=== PATIENT | female | born 1955 | race Caucasian/White ===

== ENCOUNTER → 2019-11-07 15:54 | Outpatient (CLI) | payer MEDICARE, SELFPAY ==
--- NOTE | 2019-11-04 15:14 | GANG_PTH ---
PATIENT: ROMARIO DIXON LOC: [facility] U#:[id number] AGE/SX: 70/F ROOM: RE11/07/[address]: Dr. John Evans MD : [id number] BED: DIS: SPEC #: [id number] RECD: 11/07/19 15:25 STATUS: TITA PRABHAKAR #: [id number] PHUONG: 11/04/19 15:[address]: John Evans DEPT: SURGICAL PATHOLOGY RECD BY: Abbe Nixon ENTERED: 11/08/19 11:02 SP TYPE: GANGLION OTHR DR: No Primary Care Phys [facility] Tissues: GANGLION CYST Procedures: Surgery Specimen Level III HEADER OPERATION: Excision cyst right wrist, corticosteroid injection right wrist PRE-OP DIAGNOSIS: Right wrist ganglion cyst; right wrist severe osteoarthritis TISSUE SUBMITTED: Right wrist dorsal ganglion cyst MICROSCOPIC DIAGNOSIS Right wrist dorsal ganglion cyst, excision: Consistent with ganglion cyst. SJ:alejandra 1/2/20 MICROSCOPIC DESCRIPTION Slides are reviewed. GROSS DESCRIPTION Received is one container labeled with the patient's name and not further designated. The specimen consists of an irregular fragment of light chicas soft tissue measuring 1.2 x 0.7 x 0.3 cm. The specimen is totally submitted in one cassette. / AM:alejandra 11/08/19 TC:5 CPT: 40436
== END ==
PROVIDERS: Referring Provider Specialist; Visit Provider Specialist
DX: M67.431 Ganglion, right wrist (principal); M19.031 Primary osteoarthritis, right wrist
CPT/HCPCS: 88304

== ENCOUNTER 2020-04-28 04:42 | Inpatient (IN) | payer MEDICARE, SELFPAY ==
[2020-04-28] VITALS (58 sets, daily range): BP systolic 56–116; BP diastolic 32–100; PULSE 80–116; RESP 15–25; TEMP 36.7–37.4; O2SAT 85–100; BMI 22.2; BMI 22.3; BMI 23.4
--- NOTE | 2020-04-28 04:48 | EKG12_ITS ---
Test Reason : FALL Blood Pressure : / mmHG Vent. Rate : 106 BPM Atrial Rate : 106 BPM P-R Int : 128 ms QRS Dur : 076 ms QT Int : 338 ms P-R-T Axes : 066 076 063 degrees QTc Int : 448 ms Sinus tachycardia Otherwise normal ECG Confirmed by MODE HERNADEZ, BLUE ([id number]), staff editor TIKI YUEN ([id number]) on 05/01/2020 9:21:44 AM Referred By: RAJAN Confirmed By:BLUE COELLO MD
--- NOTE | 2020-04-28 04:48 | CT_ITS ---
STUDY: CT BRAIN WITHOUT CONTRAST REASON FOR EXAM: Female, 65 years old. FREQUENT FALLS, HIT HEAD, SMALL LAC POSTERIOR HEAD RADIATION DOSAGE (If Supplied By Facility): CTDIvol = ( 44.99 ) mGy, DLP = ( 762.36 ) mGycm TECHNIQUE: Transaxial CT imaging of the brain was performed without administration of intravenous contrast material. Individualized dose optimization techniques were used for this CT. COMPARISON: No relevant priors. FINDINGS: Minimal soft tissue prominence along the right occipital parietal soft tissue. Intact underlying cortex. There is no radiopaque foreign body. Normal calvarium. Normal size ventricles and extra-axial spaces for the patient''s age. Normal white matter tracts of the cerebral hemispheres. Normal basal ganglia and thalami. Normal brainstem. Normal cerebellum. There is no intracranial hemorrhage. There are no findings of an acute ischemic infarction. Normal visualized paranasal sinuses. The bilateral mastoid air cells and ossicles are unopacified. Intracranial arteriosclerosis of the carotid and vertebral arteries. CT/Brain/Head without Contrast IMPRESSION: There is no acute intracranial pathology. Mild soft tissue injury.. Electronically Signed: Steffany Uribe MD at 5:34 EDT , Service support ,
--- NOTE | 2020-04-28 04:50 | ED.DCSUM_ITS ---
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 She apparently had fallen last 3 nights at home alone. Last night she was staying with her daughter and fell twice. Patient denies feeling lightheaded or dizzy. She states she just feels like her legs give out on her. She was diagnosed with restless leg syndrome. EMS did note large areas of ecchymoses over the lower extremities. They initially had blood pressure in the 60s over 30s. - Past Medical History (1) Hypertension Status: Chronic (2) Carotid stenosis Status: Chronic Past Medical History - Allergies and Home Meds Allergies/Adverse Reactions: Allergies No Known Allergies Allergy (Verified 04/28/20 04:52) Primary Care Physician: Care Physician,No Primary [NON-STAFF] - Prior records reviewed: Yes Lives: Alone Review of Systems General: Denies: Chills, Fever Eyes: Denies: Visual changes - bilaterally ENT: Denies: Bilateral ear pain Cardiovascular: Denies: Chest pain Respiratory: Denies: Dyspnea, Cough Gastrointestinal: Denies: Abdominal pain, Nausea, Vomiting, Diarrhea Musculoskeletal: Reports: Extremity Pain Skin: Reports: Wounds Neurological: Reports: Weakness - Generalized weakness Hematologic: Reports: Easy bruising - Secondary to Xarelto Allergy: Denies: Uticaria Physical Exam Vital Signs/Narrative: Vital Signs Temp Pulse Resp BP Pulse Ox 04/28/20 04:43 99 F 97 16 114/100 H 98 Inital Vital Signs reviewed: Yes General: Well nourished, Well developed Head: Normocephalic, - - 5 cm linear laceration over the right posterior parietal scalp. Bleeding is well controlled. Eyes: Perrl, EOMI ENT: Moist mucous membranes Neck: Supple Cardiovascular: Regular rate, Regular rhythm Respiratory: No distress, CTA bilaterally Abdomen: Soft, Nontender, Normal bowel sounds Extremities: - - Old appearing ecchymosis on the medial portion of both thighs and over the left lower leg. Right foot is in a walking boot. Neurological: Alert, Oriented x3, Normal Strength, Normal Sensation Psychological: Normal affect Diagnostic/Tx/Re-eval Impressions Brain CT 04/28/20 04:48 IMPRESSION: There is no acute intracranial pathology. Mild soft tissue injury.. Electronically Signed: Steffany Uribe MD at 5:34 EDT , Service support , 04/28/20 04:48 Brain/Head without Contrast [CT] Stat Laboratory Results 04/28/20 04/28/20 04/28/20 04:45 04:45 04:45 WBC 12.8 H RBC 3.16 L Hgb 9.9 L Hct 31.4 L MCV 99.4 H MCH 31.3 MCHC 31.5 L RDW Std Deviation 47.6 H RDW Coeff of Cher 13.5 Plt Count 368 MPV 8.8 Immature Gran % (Auto) 0.400 Neut % (Auto) 68.3 Lymph % (Auto) 20.1 [place] % (Auto) 9.2 Eos % (Auto) 1.7 Baso % (Auto) 0.3 Absolute Neuts (auto) 8.7 H Absolute Lymphs (auto) 2.56 Nucleated RBC % 0 PT 14.1 INR 1.1 APTT 29.6 Sodium 138 Potassium 4.2 Chloride 102 Carbon Dioxide 28.0 Anion Gap 8 BUN 9 Creatinine 0.49 L Estim Creat Clear Calc 39.21 Est GFR (MDRD) Af Amer 162 Est GFR (MDRD) Non-Af 134 BUN/Creatinine Ratio 18.3 Glucose 121 H Calcium 8.9 Urine Color Urine Clarity Urine pH Ur Specific [place] Urine Protein Urine Glucose (UA) Urine Ketones Urine Occult Blood Urine Nitrite Urine Bilirubin Urine Urobilinogen Ur Leukocyte Esterase Urine RBC Urine WBC Ur Squamous Epith Cells Urine Bacteria Urine Mucus 04/28/20 05:55 WBC RBC Hgb Hct MCV MCH MCHC RDW Std Deviation RDW Coeff of Cher Plt Count MPV Immature Gran % (Auto) Neut % (Auto) Lymph % (Auto) [place] % (Auto) Eos % (Auto) Baso % (Auto) Absolute Neuts (auto) Absolute Lymphs (auto) Nucleated RBC % PT INR APTT Sodium Potassium Chloride Carbon Dioxide Anion Gap BUN Creatinine Estim Creat Clear Calc Est GFR (MDRD) Af Amer Est GFR (MDRD) Non-Af BUN/Creatinine Ratio Glucose Calcium Urine Color Yellow Urine Clarity Clear Urine pH 7.0 Ur Specific [place] 1.010 Urine Protein Negative Urine Glucose (UA) Normal Urine Ketones Negative Urine Occult Blood 25 H Urine Nitrite Negative Urine Bilirubin Negative Urine Urobilinogen Normal Ur Leukocyte Esterase Negative Urine RBC 0-5 SEEN Urine WBC 0 SEEN Ur Squamous Epith Cells 0 SEEN Urine Bacteria 0 SEEN Urine Mucus 0 SEEN - EKG Initial EKG Interpretation: Sinus Tachycardia - Sinus tach at 106 with no acute ischemia. - Medical Decision Making Patient scalp laceration was repaired. Please see procedure note. Patient has considerable pain in her legs consistent with her restless leg syndrome. She is crawling about the bed and daughter states this is how she typically falls at home. She gets so much pain in her legs that she cannot lay still and gets up, then falling to the floor. Daughter states that she tried to stay awake and watch her all night tonight. She fell asleep twice and that is when her mother got up and fell. Patient was initially given 25 mcg of fentanyl and 0.5 mg of Ativan. Nursing staff stated this helped for a short time., But then patient became very agitated again. She was given an additional 25 mcg of fentanyl. At this time patient is sleeping. She has intermittent restlessness. At this time patient is not safe to go home with her frequent falls in spite of having a walker and staying with family members. I will speak with hospitalist regarding admission for initiation of medication regimen to try to help her symptoms along with physical therapy evaluation. Procedures - Lacerations No standard instances Length: 1.97 in Depth: Sub Q Shape: Linear Laceration repair: Lidocaine with epi, Local Number of Sutures/[place]: 7 Comment: Wound was anesthetized with 4 cc of lidocaine with epinephrine. Wound was cleansed and irrigated. Skin was closed with 7 reji. ED Disposition - Plan for ED Patient: Disposition: Acute Care Hospital [facility] Diagnosis: Multiple falls, Scalp laceration, Restless leg syndrome Referrals: Care Physician,No Primary [NON-STAFF] -
[2020-04-28 04:59] LABS: Absolute Lymphocyte Count 2.56 X10^3/uL (0.83-4.51); Absolute Neutrophil Count 8.7 X10^3/uL (2.0-7.7); Basophil# 0.04 X10^3/uL; Basophil% 0.3 % (0-1); Eosinophil# 0.22 X10^3/uL; Eosinophils% 1.7 % (0-5); Hematocrit 31.4 % (37-47); Hemoglobin 9.9 g/dL (12.0-15.0); Lymphocyte # 2.56 X10^3/ul (4.0); Lymphocyte % 20.1 % (19-41); Mean Corp Hgb Conc 31.5 g/dL (32-36); Mean Corpuscular Hgb 31.3 pg (27.0-32.0); Mean Corpuscular Volume 99.4 fL (81-99); Mean Platelet Vol. 8.8 fl (6.2-12.0); Monocyte# 1.17 X10^3/uL; Monocyte% 9.2 % (0-10); NRBC Flagged by Analyzer 0 % (0-5); Neutrophil # 8.72 X10^3/uL (2.7-7.7); Neutrophil % 68.3 % (47-70); Platelet Count 368 K/mm3 (150-450); RBC Distribution Width CV 13.5 % (11.6-14.6); RBC Distribution Width SD 47.6 fl (35.1-43.9); Red Blood Count 3.16 M/mm3 (4.2-5.4); White Blood Count 12.8 K/mm3 (4.4-11.0)
[2020-04-28 05:07] LABS: International Normalized Ratio 1.1; Partial Thromboplast Time 29.6 Seconds (24.1-36.2); Prothrombin Time (Protime)PT. 14.1 SECONDS (11.7-14.9)
[2020-04-28 05:17] LABS: Anion Gap 8 (5-15); BUN 9 mg/dL (7-18); BUN/Creat Ratio 18.3 RATIO (10-20); Calcium,Total 8.9 mg/dL (8.5-10.1); Chloride 102 mmol/L (98-107); Creatinine, Serum 0.49 mg/dL (0.55-1.02); EST Glomerular Filtration Rate 134 mL/min (>60); Est Glom Filt Rate - Afr Amer 162 mL/min (>60); Estimated Creatinine Clearance 39.21 ml/min; Glucose 121 mg/dL (74-106); Potassium 4.2 mmol/L (3.5-5.1); Sodium Level 138 mmol/L (136-145)
[2020-04-28] MEDS: LORazepam 2 MG/ML Syringe 0.5 MG IV (05:39)
[2020-04-28] MEDS: fentaNYL 100 MCG/2 ML Ampul 25 MCG IV ×3 (05:40→07:09)
[2020-04-28 06:02] LABS: Bacteria 0 SEEN /hpf (None Seen); Mucous, Urine 0 SEEN /hpf (<or=2+); Squamous Epithelial Cells - UA 0 SEEN /hpf (5-10); White Blood Cells 0 SEEN /hpf (0-5)
[2020-04-28 06:04] LABS: Color, Urine Yellow (Yellow); Glucose, Dipstick Normal (Normal); Ketone-Dipstick Negative (Negative); Leukocyte Esterase-Dipstick Negative /ul (Negative); Nitrite-Dipstick Negative (Negative); Occult Blood-Urine 25 /ul (Negative); Protein-Dipstick Negative (Negative); Urine Bilirubin Dipstick Negative (Negative); Urine Clarity Clear (Clear); Urine Urobilinogen Normal (Normal)
[2020-04-28] MEDS: 0.9% Normal Saline 1,000 ML 150 ML IV (06:06)
[2020-04-28 06:25] LABS: Red Blood Cells-Urine 0-5 SEEN /hpf (0-5)
--- NOTE | 2020-04-28 07:13 | NURSING ---
MED SURG OBS TERELETSKY RLS, MULTIPLE FALLS
--- NOTE | 2020-04-28 07:23 | NURSING ---
DR KING IN ROOM
[2020-04-28] MEDS: 0.9% Normal Saline 1,000 ML 999 ML IV ×3 (08:23→11:06)
[2020-04-28] MEDS: Naloxone 0.4 MG/ML Syringe IV ×2 (10:10→14:09)
[2020-04-28] MEDS: 0.9% Saline Lock 10 ML Syringe IV ×3 (10:10→20:21)
--- NOTE | 2020-04-28 10:17 | NURSING ---
Addendum entered by Giselle Nino 04/28/20 10:34: previous note continued....with seemingly slow improvement. Pt now thrashing in bed- states she has restless legs. Asked pt how long it has been this bad- she states for about 6 mos. but admits that she had at least 2 falls last night- the first on her buttocks and the second on her head. 8 reji intact to back of head- serosanguineous drainage continued to be noted. Pt voices need to urinate but reports that she is unable. Dr. Laguerre to be notified of all findings. Original Note: Pt lethargic at time of arrival to [place]. 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 Pt difficult to keep awake and needing occasional sternal rub to open eyes. When eyes are open and pt is talking she is alert and oriented but immediately falls into a deep sleep. bp 70's /40's and spo2 85% on 2l Oxygen. Oxygen increased to 4L with increase above 90%. Dr Kiser notified of findings and ordered narcan and 2 boluses of NS. dino Melo RN in with this patient during administration. Vitals checked.
[2020-04-28] MEDS: Heparin Injection (Vial) 5,000 UNIT/ML VIAL 5000 UNIT SC (12:14)
[2020-04-28] MEDS: 0.9% Normal Saline 1,000 ML 100 ML IV (12:15)
[2020-04-28] MEDS: Midodrine HCl 5 MG Tablet 10 MG PO (12:38)
--- NOTE | 2020-04-28 13:15 | NURSING ---
Estephania Uriber- daughter called in and requested an update. This RN notified her that this RN has been staying with pt since her arrival to unit due to low bp. Notified that doctors are attempting to correct bp but using medications but that patient may need to be transferred for closer monitoring and medications that will help increase her bp. Understanding verbalized by Estephania.
--- NOTE | 2020-04-28 13:49 | NURSING ---
DR. Laguerre to unit to assess patient and determine course of action for continued low bp.
--- NOTE | 2020-04-28 14:05 | NURSING ---
administrative supervisor notified again on update on pt, Michelle VALENTIN just in room, have personally discussed with plan of care, no orders to transfer patient off unit at this time.
[2020-04-28] MEDS: Flumazenil 0.5 MG/5 ML Vial 0.2 MG IV (14:10)
--- NOTE | 2020-04-28 14:18 | NURSING ---
Michelle Jenkins HOUSE DIRECTOR in with this RN when bp taken and was 56/34, pt remains in supine position. Pt asymptomatic and alert and oriented when awakened. Notified Michelle of care provided today and meds given in ER, narcan x1 and then new orders for narcan and romazicon. Both meds given and will continue to assess pt.
[2020-04-28 14:19] LABS: Absolute Lymphocyte Count 2.02 X10^3/uL (0.83-4.51); Absolute Neutrophil Count 5.6 X10^3/uL (2.0-7.7); Basophil# 0.03 X10^3/uL; Basophil% 0.4 % (0-1); Eosinophil# 0.13 X10^3/uL; Eosinophils% 1.5 % (0-5); Hematocrit 24.7 % (37-47); Hemoglobin 7.7 g/dL (12.0-15.0); Lymphocyte # 2.02 X10^3/ul (4.0); Lymphocyte % 23.7 % (19-41); Mean Corp Hgb Conc 31.2 g/dL (32-36); Mean Corpuscular Volume 102.5 fL (81-99); Mean Platelet Vol. 8.8 fl (6.2-12.0); Monocyte# 0.78 X10^3/uL; Monocyte% 9.1 % (0-10); NRBC Flagged by Analyzer 0 % (0-5); Neutrophil # 5.55 X10^3/uL (2.7-7.7); Neutrophil % 64.9 % (47-70); Platelet Count 296 K/mm3 (150-450); RBC Distribution Width CV 13.5 % (11.6-14.6); Red Blood Count 2.41 M/mm3 (4.2-5.4); White Blood Count 8.5 K/mm3 (4.4-11.0)
--- NOTE | 2020-04-28 14:26 | NURSING ---
Pt has been resting well this afternoon. Pt awakens at times crying. Once it was because today is her granddaughter's graduation republican and she has to miss it, more recently she was crying because she was thinking of her late and wishes he was here. She states that he about 2 yrs ago.
--- NOTE | 2020-04-28 15:07 | NURSING ---
This RN attempted to call Estephania Arnold to notify her that patient is on her way to ICU at this time. Instead message left requesting return call to this RN for an update.
--- NOTE | 2020-04-28 15:08 | NURSING ---
Report given to PRISCILLA Nolasco ICU - pt on way to ICU6 at this time per dr. silva
--- NOTE | 2020-04-28 15:17 | NURSING ---
Pt to ICU [address] Laguerre present upon arrival.
--- NOTE | 2020-04-28 15:34 | PCM.HP.STD ---
Problem List (1) Hypertension Status: Chronic (2) Carotid stenosis Status: Chronic (3) Multiple falls Status: Acute (4) Scalp laceration Status: Acute (5) Restless leg syndrome Status: Acute History of Present Illness Date of Admission: 04/28/20 Chief Complaint: Multiple falls, restless legs. The patient is a 65 year old F who presents the emergency room due to multiple falls over the past 3 days and severe restless legs. Patient states she has had restless leg syndrome for a long time however it has worsened recently. She has been getting up in the night due to her restless legs and has had multiple falls. Patient had a fall 1 week ago which resulted in right tibial fracture. Fall prior to admission resulted in posterior scalp laceration which was repaired in the ED. Patient is very drowsy during assessment. History obtained from the daughter. Patient denies dizziness, lightheadedness. She reports when she falls her legs feel weak and give out on her. She denies syncope or other associated symptoms. She has a past medical history of hypertension, hyperlipidemia, carotid artery disease, osteoporosis. Past Medical History Past Medical History (Chronic Problems): Chronic Problems Hypertension (Chronic) Carotid stenosis (Chronic) Allergies No Known Allergies Allergy (Verified 04/28/20 04:52) Home Medications: Ambulatory Orders Medication Instructions Recorded Aspirin [Aspirin, Baby] 81 mg PO DAILY@0800 04/28/20 Denosumab [Prolia] 60 mg SQ X1 04/28/20 Lisinopril [Zestril] 40 mg PO DAILY 04/28/20 Rivaroxaban [Xarelto] 2.5 mg PO BID 04/28/20 Rosuvastatin Calcium [Crestor] 10 mg PO DAILY 04/28/20 Surgical History: - - Carpal tunnel surgery, right lumpectomy, surgery. Psychiatric History: No pertinent psych hx BUFFER CHROME History: No pertinent BUFFER CHROME history Lives: Alone Smoking Status: Current every day smoker Alcohol: Occasional Drugs: None - *Family History Maternal History Items: Diabetes Paternal History Items: - - Does not know paternal medical history. Denies known paternal cardiac history. Review of Systems Constitutional: Denies: Chills, Fever, Weight Change HEENT: Denies: Head Aches, Sinus Congestion, Sinus Drainage Cardiovascular: Denies: Chest Pain, Palpitations Respiratory: Denies: Cough, Shortness of breath at rest, Sputum production Gastrointestinal: Denies: Abdominal Pain, Nausea, Vomiting Genitourinary: Denies: Dysuria Musculoskeletal: Reports: - - Bilateral leg pain, - - Restless legs. Denies: Joint Pain, Joint Tenderness Skin: Reports: - - Generalized ecchymosis from falls. Denies: Rash, Wounds Neurological: Denies: Focal weakness, Numbness, Tingling Psychiatric: Denies: Anxiety, Depression, Homicidal Ideations, Suicidal Ideations Hematologic/ Lymphatic: Denies: Easy Bruising, Easy Bleeding VTE Information - Inpt Only VTE Present on Admission: No VTE Mechan Device Prophylaxis: SCD's VTE Pharm Prophylaxis ordered?: No Reason prophylaxis not ordered:: Medical Contraindication Patient Problems: Active and Suspected Problems Multiple falls (Acute) Scalp laceration (Acute) Restless leg syndrome (Acute) - Physical Exam Vitals/I&O's: Vital Signs Temp Pulse Resp BP Pulse Ox 98.8 F 84 22 H 68/40 L 94 04/28/20 14:36 04/28/20 15:01 04/28/20 14:36 04/28/20 14:36 04/28/20 14:36 Oxygen Flow Rate (L/min) 2 Oxygen Delivery Method Nasal Cannula Weight: 120 lb Body Mass Index (BMI) 23.4 Intake and Output for Last 24 Hours 04/26/20 04/27/20 04/28/20 23:59 23:59 23:59 Intake Total 4600 / 4600 Output Total 400 / 400 Balance 4200 / 4200 General: Oriented x3, Cooperative, - - Drowsy HEENT: Atraumatic, PERRLA, EOMI, Normocephalic Oral: Dry Mucosa Neck: Supple, No JVD, Negative Carotid Bruits Lungs: Clear to auscultation, Normal air movement Cardiovascular: Regular rate, Regular Rhythm, Normal S1, Normal S2, No murmurs Abdomen: Bowel Sounds Present, Soft, Non Tender, Non-Distended Extremities: No clubbing, No cyanosis, No edema, Capillary Refill Less than 3 Seconds Skin: No rashes, No breakdown, - - Generalized ecchymosis from recurrent fall. Posterior scalp laceration with reji intact. Musculoskeletal: No Tenderness to Palpation of Joints or Extremities Neurological: Cranial nerves II-XII grossly intact, Neuro grossly intact Psych/Mental Status: Normal Affect, Appropriate Laboratory Results 04/28/20 04:45: WBC 12.8 H, RBC 3.16 L, Hgb 9.9 L, Hct 31.4 L, MCV 99.4 H, MCH 31.3, MCHC 31.5 L, RDW Std Deviation 47.6 H, RDW Coeff of Cher 13.5, Plt Count 368, MPV 8.8, Immature Gran % (Auto) 0.400, Neut % (Auto) 68.3, Lymph % (Auto) 20.1, [place] % (Auto) 9.2, Eos % (Auto) 1.7, Baso % (Auto) 0.3, Absolute Neuts (auto) 8.7 H, Absolute Lymphs (auto) 2.56, Nucleated RBC % 0 04/28/20 04:45: PT 14.1, INR 1.1, APTT 29.6 04/28/20 04:45: Sodium 138, Potassium 4.2, Chloride 102, Carbon Dioxide 28.0, Anion Gap 8, BUN 9, Creatinine 0.49 L, Estim Creat Clear Calc 39.21, Est GFR (MDRD) Af Amer 162, Est GFR (MDRD) Non-Af 134, BUN/Creatinine Ratio 18.3, Glucose 121 H, Calcium 8.9 04/28/20 05:55: Urine Color Yellow, Urine Clarity Clear, Urine pH 7.0, Ur Specific [place] 1.010, Urine Protein Negative, Urine Glucose (UA) Normal, Urine Ketones Negative, Urine Occult Blood 25 H, Urine Nitrite Negative, Urine Bilirubin Negative, Urine Urobilinogen Normal, Ur Leukocyte Esterase Negative, Urine RBC 0-5 SEEN, Urine WBC 0 SEEN, Ur Squamous Epith Cells 0 SEEN, Urine Bacteria 0 SEEN, Urine Mucus 0 SEEN 04/28/20 14:05: WBC 8.5, RBC 2.41 L, Hgb 7.7 L, Hct 24.7 L, MCV 102.5 H, MCH 32.0, MCHC 31.2 L, RDW Std Deviation 50.0 H, RDW Coeff of Cher 13.5, Plt Count 296, MPV 8.8, Immature Gran % (Auto) 0.400, Neut % (Auto) 64.9, Lymph % (Auto) 23.7, [place] % (Auto) 9.1, Eos % (Auto) 1.5, Baso % (Auto) 0.4, Absolute Neuts (auto) 5.6, Absolute Lymphs (auto) 2.02, Nucleated RBC % 0 04/28/20 14:05: Troponin I 0.015 04/28/20 14:05: Lactic Acid 1.0 04/28/20 14:50: Blood Type Pending, Antibody Screen Pending, Crossmatch See Detail Current Medications Acetaminophen (Tylenol) 650 mg PO Q6H PRN PRN PRN Reason: Pain Score 1-10/Temp > 100.7 F Sodium Chloride () 250 mls @ 15 mls/hr IV .[id number] PRN PRN Reason: Saline Flush Sodium Chloride () 1,000 mls @ 100 mls/hr IV .Q10H CHU Last Admin: 04/28/20 12:15 Dose: 100 mls/hr Documented by: Famotidine 20 mg/ Sodium (Chloride) 10 mls @ 300 mls/hr IV DAILY CHU Sodium Chloride () 10 - 40 ml IV UD PRN PRN Reason: SALINE FLUSH Last Admin: 04/28/20 14:09 Dose: 10 ml Documented by: Assessment/Plan All Active Problems Multiple falls (Acute) Scalp laceration (Acute) Restless leg syndrome (Acute) 1. Acute anemia, hypotension-hypotension initially suspected to be secondary to Ativan/fentanyl given in ER. BP initially improved upon admission to [place] however subsequently dropped again. Patient received Narcan and fluid bolus without improvement. Patient was then transferred to ICU for further management and care. Hemoglobin on admission 9.9. Repeat hemoglobin 7.7. 3 units PRBC ordered. Check stool for occult blood. Trend H&H. Brain CT on admission without acute process. 2. Recurrent falls, lower extremity weakness- unclear etiology. Possibly due to #1 however patient reports this is been ongoing. Patient reports severe lumbar back pain. Obtain lumbar x-ray. PT/OT. Fall precautions. Pending x-ray, patient may require lumbar MRI. 3. Restless leg syndrome- worsened recently. Not on regimen. Will initiate gabapentin QHS. Check tsh, mg/phos. 4. Hypertension-hold BP regimen given #1. 5. Carotid stenosis- continue aspirin, statin. 6. Hyperlipidemia-continue statin. 7. Tobacco dependence-encouraged cessation. DVT prophylaxis-SCDs This patient was seen by KAYLA Downs under the supervision of Dr. Kiser.
[2020-04-28 16:37] LABS: Phosphorus 2.3 mg/dL (2.5-4.9)
[2020-04-28 16:43] LABS: Magnesium 1.7 mg/dL (1.6-2.6); Thyroid Stim Hormone (TSH) 2.34 uIU/mL (0.358-3.74)
--- NOTE | 2020-04-28 18:40 | RAD_ITS ---
STUDY: X-RAY - LUMBAR SPINE REASON FOR EXAM: Female, 65 years old. HISTORY OF MULTIPLE FALLS IN THE PAST FEW DAYS. LOW BACK AND COCCYX PAIN AND BRUISING. TECHNIQUE: 3 view(s) of the lumbar spine were obtained. COMPARISON: None FINDINGS: There is straightening of the normal lumbar lordosis. There is no substantial scoliosis. No fracture or subluxation. Vertebral body heights are well-maintained. Disc space narrowing is mild at L1-2 and L3-4 and moderate at L2-3, L4-5. Mild spondylosis. Atherosclerotic calcification of the aorta. The soft tissue structures are unremarkable. RAD/Lumbar Spine 2 or 3 Views IMPRESSION: 1. Mild degenerative changes. No acute findings. Electronically Signed: Dina Nelson MD at 19:20 EDT Tel , Service support ,
[2020-04-28] MEDS: Gabapentin 300 MG Capsule PO (21:13)
[2020-04-28] MEDS: Acetaminophen 325 MG Tablet 650 MG PO (22:54)
[2020-04-29] VITALS (21 sets, daily range): BP systolic 63–124; BP diastolic 42–98; PULSE 67–104; RESP 16–24; TEMP 36.7–37.5; O2SAT 91–100
[2020-04-29] MEDS: Ketorolac 15 MG/ML Vial IV ×2 (00:56→19:11)
[2020-04-29] MEDS: 0.9% Saline Lock 10 ML Syringe IV ×3 (00:56→19:11)
[2020-04-29 01:19] LABS: Hemoglobin 10.4 g/dL (12.0-15.0)
[2020-04-29] MEDS: 0.9% Normal Saline 1,000 ML 100 ML IV (05:02)
[2020-04-29 05:33] LABS: Absolute Lymphocyte Count 2.01 X10^3/uL (0.83-4.51); Absolute Neutrophil Count 5.5 X10^3/uL (2.0-7.7); Basophil# 0.03 X10^3/uL; Basophil% 0.4 % (0-1); Eosinophil# 0.16 X10^3/uL; Eosinophils% 1.9 % (0-5); Hematocrit 34.4 % (37-47); Hemoglobin 11.1 g/dL (12.0-15.0); Lymphocyte # 2.01 X10^3/ul (4.0); Lymphocyte % 23.6 % (19-41); Mean Corp Hgb Conc 32.3 g/dL (32-36); Mean Corpuscular Hgb 30.2 pg (27.0-32.0); Mean Corpuscular Volume 93.7 fL (81-99); Mean Platelet Vol. 9.2 fl (6.2-12.0); Monocyte# 0.85 X10^3/uL; NRBC Flagged by Analyzer 0 % (0-5); Neutrophil # 5.46 X10^3/uL (2.7-7.7); Neutrophil % 63.9 % (47-70); Platelet Count 297 K/mm3 (150-450); RBC Distribution Width SD 54.4 fl (35.1-43.9); Red Blood Count 3.67 M/mm3 (4.2-5.4); White Blood Count 8.5 K/mm3 (4.4-11.0)
--- NOTE | 2020-04-29 10:17 | PN_ITS ---
Patient Problems: Active and Suspected Problems Multiple falls (Acute) Scalp laceration (Acute) Restless leg syndrome (Acute) Subjective: Patient seen and examined. Much more alert today. Blood pressure improved. Patient states she slept well overnight, denies restless legs. - Physical Exam Vitals/I&O's: Vital Signs Temp Pulse Resp BP Pulse Ox 98.0 F 80 16 103/63 97 04/29/20 04:00 04/29/20 07:00 04/29/20 07:00 04/29/20 07:00 04/29/20 08:14 Oxygen Flow Rate (L/min) 2 Oxygen Delivery Method Nasal Cannula Weight: 117 lb 4.575 oz Body Mass Index (BMI) 23.4 Intake and Output for Last 24 Hours 04/27/20 04/28/20 04/29/20 23:59 23:59 23:59 Intake Total 5708.33 / 6108.33 1376.66 / 1376.66 Output Total 500 / 500 750 / 750 Balance 5208.33 / 5608.33 626.66 / 626.66 General: Alert, Oriented x3, Cooperative HEENT: Atraumatic, PERRLA, EOMI, Normocephalic Neck: Supple, No JVD, Negative Carotid Bruits Lungs: Clear to auscultation, Normal air movement Cardiovascular: Regular rate, No murmurs Abdomen: Bowel Sounds Present, Soft, Non Tender, Non-Distended Extremities: No clubbing, No cyanosis, No edema, Capillary Refill Less than 3 Seconds Skin: No rashes, No breakdown, - - Generalized ecchymosis. Posterior scalp laceration with reji intact. Musculoskeletal: No Tenderness to Palpation of Joints or Extremities Neurological: Cranial nerves II-XII grossly intact, Neuro grossly intact Psych/Mental Status: Normal Affect, Appropriate Laboratory Results 04/28/20 14:05: WBC 8.5, RBC 2.41 L, Hgb 7.7 L, Hct 24.7 L, MCV 102.5 H, MCH 32.0, MCHC 31.2 L, RDW Std Deviation 50.0 H, RDW Coeff of Cher 13.5, Plt Count 296, MPV 8.8, Immature Gran % (Auto) 0.400, Neut % (Auto) 64.9, Lymph % (Auto) 23.7, [place] % (Auto) 9.1, Eos % (Auto) 1.5, Baso % (Auto) 0.4, Absolute Neuts (auto) 5.6, Absolute Lymphs (auto) 2.02, Nucleated RBC % 0 04/28/20 14:05: Troponin I 0.015 04/28/20 14:05: Lactic Acid 1.0 04/28/20 14:05: Magnesium 1.7, TSH 2.34 04/28/20 14:05: Phosphorus 2.3 L 04/28/20 14:50: Blood Type A POSITIVE, Antibody Screen NEGATIVE, Crossmatch See Detail 04/29/20 01:10: Hgb 10.4 L, Hct 32.0 L 04/29/20 05:15: WBC 8.5, RBC 3.67 L, Hgb 11.1 L, Hct 34.4 L, MCV 93.7 D, MCH 30.2, MCHC 32.3, RDW Std Deviation 54.4 H, RDW Coeff of Cher 16.0 H, Plt Count 297, MPV 9.2, Immature Gran % (Auto) 0.200, Neut % (Auto) 63.9, Lymph % (Auto) 23.6, [place] % (Auto) 10.0, Eos % (Auto) 1.9, Baso % (Auto) 0.4, Absolute Neuts (auto) 5.5, Absolute Lymphs (auto) 2.01, Nucleated RBC % 0 Current Medications Acetaminophen (Tylenol) 650 mg PO Q6H PRN PRN PRN Reason: Pain Score 1-10/Temp > 100.7 F Last Admin: 04/28/20 22:54 Dose: 650 mg Documented by: Gabapentin (Neurontin) 300 mg PO QHS [facility] Last Admin: 04/28/20 21:13 Dose: 300 mg Documented by: Sodium Chloride () 250 mls @ 15 mls/hr IV .[id number] PRN PRN Reason: Saline Flush Sodium Chloride () 1,000 mls @ 100 mls/hr IV .Q10H [facility] Last Infusion: 04/29/20 08:34 Dose: 100 mls/hr Documented by: Pantoprazole Sodium 40 mg/ (Sodium Chloride) 110 mls @ 330 mls/hr IV Q12 [facility] Last Infusion: 06/20/20 23:16 Dose: Infused Documented by: Ketorolac Tromethamine (Toradol (Bkc)) 15 mg IV Q8H PRN PRN Reason: PAIN SCORE 1-10/10 Last Admin: 04/29/20 00:56 Dose: 15 mg Documented by: Sodium Chloride () 10 - 40 ml IV UD PRN PRN Reason: SALINE FLUSH Last Admin: 04/29/20 00:56 Dose: 20 ml Documented by: Medical Necessity - Tobacco Use Smoking Status: Current every day smoker Assessment/Plan All Active Problems Multiple falls (Acute) Scalp laceration (Acute) Restless leg syndrome (Acute) 1. Hypotension-hypotension initially suspected to be secondary to Ativan/fentanyl given in ER. BP initially improved upon admission to [place] however subsequently dropped again. Patient received Narcan and fluid bolus without improvement. Patient was then transferred to ICU for further management and care. Upon admission to ICU, blood pressure improved and has been stable since. Blood pressure checks have been completed and right arm due to lower pressure readings and left arm. Continue to hold blood pressure regimen. IV fluids. Check orthostatic vitals. 2. Acute anemia-patient's baseline hemoglobin unclear. Patient had prior iron studies as outpatient, suspect chronic anemia as well. Patient received 2 units PRBC for hemoglobin 7.7. Hemoglobin this morning 11.1. Suspect prior lab low due to dilution. Trend CBC. Stool for occult blood pending. Xarelto discontinued. 3. Recurrent falls, lower extremity weakness- unclear etiology. Possibly due to #1. Patient reports severe lumbar back pain. Lumbar x-ray unremarkable. PT/OT. Fall precautions. Plan for lumbar MRI tomorrow. 4. Restless leg syndrome- worsened recently. Not on regimen. Will initiate gabapentin QHS. TSH, mag normal. 5. Hypertension-hold BP regimen given #1. 6. Carotid stenosis- continue aspirin, statin. 7. Hyperlipidemia-continue statin. 8. Tobacco dependence-encouraged cessation. DVT prophylaxis-SCDs This patient was seen by KAYLA Downs under the supervision of Dr. Kiser.
--- NOTE | 2020-04-29 14:11 | ECHOD_ITS ---
Reason For Study: PRE OPERATIVE EXAM Procedure This was a 2D Doppler, Color Flow transthoracic echocardiogram. The study was technically difficult. Due to deep respiratory interference. Exam performed portable in patient room. Left Ventricle Normal LV size. Left ventricular systolic function is normal. The estimated ejection fraction is 55 %. No regional wall motion abnormalities noted. Right Ventricle Normal RV size. Normal systolic function. Atria Normal left atrium. Normal right atrium. Tricuspid Valve Normal tricuspid valve. Mild (1+) tricuspid valve insufficiency. Pulmonary artery systolic pressure is 44 mmHg. Pulmonic Valve Normal pulmonic valve. Great Vessels Normal aortic root. The pulmonary artery is normal size. Normal inferior vena cava. Pericardium/Pleural No pericardial effusion. MMode/2D Measurements & Calculations LVIDd: 3.9 cm IVSd: 0.94 cm Ao root diam: 2.9 cm LVIDs: 2.6 cm LVPWd: 1.0 cm RVDd: 3.8 cm FS: 34.9 % LAV(MOD-bp): 29.7 ml LA dimension(2D): 3.4 cm LA A4 area: 11.4 cm2 LAV(MOD-bp) Indexed: 20.0 ml/m2 LAV(MOD-sp2): 30.1 ml LAV(MOD-sp4): 26.6 ml RA A4 area: 10.4 cm2 Time Measurements MV dec time: 0.16 sec Doppler Measurements & Calculations MV E max allen: 107.1 cm/sec Lat Peak E' Allen: 7.6 cm/sec Med Peak E' Allen: 9.7 cm/sec MV A max allen: 102.8 cm/sec E/E' lat: 14.1 E/E' med: 11.0 MV E/A: 1.0 Ao V2 max: 109.7 cm/sec LV V1 max: 90.5 cm/sec PA V2 max: 64.8 cm/sec Ao max P.8 mmHg LV V1 max P.3 mmHg TR max allen: 299.6 cm/sec TR max P.4 mmHg Interpretation Summary Normal LV size. Left ventricular systolic function is normal. The estimated ejection fraction is 55 %. The study was technically difficult. Structurally normal valves. Ordering Physician: Michelle Jenkins Referring Physician: Sorin Lewis Performed By: Marialuisa Drew, RAMYA, RVT
[2020-04-29 16:44] LABS: Hematocrit 34.2 % (37-47); Hemoglobin 10.9 g/dL (12.0-15.0)
[2020-04-29 18:02] LABS: Probe Check PASS; Specimen Processing Control PASS
--- NOTE | 2020-04-29 19:28 | NURSING ---
MRI paperwork filled out and faxed to MRI for tomorrow's lumbar order
[2020-04-29] MEDS: Gabapentin 300 MG Capsule PO (20:45)
[2020-04-29] MEDS: Acetaminophen 325 MG Tablet 650 MG PO (20:45)
[2020-04-30 02:50] VITALS: BP 136/72; PULSE 91; RESP 20; TEMP 36.8; O2SAT 96
[2020-04-30] MEDS: Ketorolac 15 MG/ML Vial IV ×2 (03:10→23:05)
[2020-04-30] MEDS: Acetaminophen 325 MG Tablet 650 MG PO ×2 (03:11→20:22)
[2020-04-30 05:56] LABS: Hematocrit 36.4 % (37-47); Hemoglobin 11.5 g/dL (12.0-15.0); Mean Corp Hgb Conc 31.6 g/dL (32-36); Mean Corpuscular Hgb 29.6 pg (27.0-32.0); Mean Corpuscular Volume 93.6 fL (81-99); Mean Platelet Vol. 9.1 fl (6.2-12.0); Platelet Count 326 K/mm3 (150-450); RBC Distribution Width CV 15.5 % (11.6-14.6); RBC Distribution Width SD 52.3 fl (35.1-43.9); Red Blood Count 3.89 M/mm3 (4.2-5.4); White Blood Count 9.1 K/mm3 (4.4-11.0)
[2020-04-30 07:53] VITALS: O2SAT 95
--- NOTE | 2020-04-30 08:30 | MRI_ITS ---
STUDY: MRI LUMBAR SPINE WITHOUT CONTRAST REASON FOR EXAM: Female, 65 years old. radiculopathy -- pain low back and bilat legs, several falls TECHNIQUE: Standardized fat and water weighted pulse sequences were obtained in the sagittal and axial planes. COMPARISON: X-ray 04/28/2020 FINDINGS: T12-L1: Normal endplates. Normal disc height, hydration and morphology. Normal bilateral facet joints. Normal central canal and bilateral lateral recesses. Normal bilateral intervertebral neural foramina. Normal lumbar lordosis. There is no substantial scoliosis. Normal conus medullaris that terminates at the T12/L1. L1-2: Normal endplates. Normal disc height, hydration and morphology. Normal bilateral facet joints. Normal central canal and bilateral lateral recesses. Normal bilateral intervertebral neural foramina. L2-3: Mild bilobed disc protrusion with Modic type II endplate changes produces mild spinal stenosis and mild bilateral neural foraminal stenosis. L3-4: Mild bilobed disc protrusion and left foraminal protrusion with Modic type II endplate changes produces mild spinal stenosis and moderate left neural foraminal stenosis. L4-5: Moderate bilateral facet hypertrophy. Mild broad disc protrusion produces mild spinal stenosis and mild bilateral neural foraminal stenosis. L5-S1: Mild bilateral facet hypertrophy. 2 mm retrolisthesis of L5 on S1 with a moderate broad disc protrusion produces moderate spinal stenosis with moderate bilateral lateral recess stenosis with abutment of the S1 nerve roots bilaterally and moderate bilateral neural foraminal stenosis with abutment of the exiting L5 nerve roots bilaterally. Normal visualized sacral ala. Normal visualized paraspinous soft tissue structures. MRI/Spine Lumbar (Routine) IMPRESSION: Multilevel degenerative changes, as described above. Electronically Signed: Sorin Rivera MD at 15:16 EDT Tel , Service support ,
[2020-04-30 09:07] LABS: Vitamin D,25 Hydroxy 65.9 ng/mL
[2020-04-30 09:19] VITALS: BP 134/73; PULSE 77; RESP 16; TEMP 37.2; O2SAT 92
[2020-04-30] MEDS: 0.9% Saline Lock 10 ML Syringe IV (09:29)
--- NOTE | 2020-04-30 09:57 | PCM.PROGNOTE ---
Patient Problems: Active and Suspected Problems Multiple falls (Acute) Scalp laceration (Acute) Restless leg syndrome (Acute) Subjective: Patient seen and examined. Blood pressure stable overnight. Patient denies symptoms or complaints. To undergo preoperative stress and echo today in anticipation of surgery for right tibia fracture. - Physical Exam Vitals/I&O's: Vital Signs Temp Pulse Resp BP Pulse Ox 98.9 F 77 16 134/73 H 92 04/30/20 09:19 04/30/20 09:19 04/30/20 09:19 04/30/20 09:19 04/30/20 09:19 Oxygen Flow Rate (L/min) 3 Oxygen Delivery Method Nasal Cannula Weight: 114 lb 13.773 oz Body Mass Index (BMI) 23.4 Intake and Output for Last 24 Hours 04/28/20 04/29/20 04/30/20 23:59 23:59 23:59 Intake Total 5708.33 / 6108.33 2781.66 / 2781.66 570.75 / 570.75 Output Total 500 / 500 2500 / 2500 300 / 300 Balance 5208.33 / 5608.33 281.66 / 281.66 270.75 / 270.75 General: Alert, Oriented x3, Cooperative HEENT: Atraumatic, PERRLA, EOMI, Normocephalic Neck: Supple, No JVD, Negative Carotid Bruits Lungs: Clear to auscultation, Normal air movement Cardiovascular: Regular rate, No murmurs Abdomen: Bowel Sounds Present, Soft, Non Tender, Non-Distended Extremities: No clubbing, No cyanosis, No edema, Capillary Refill Less than 3 Seconds Skin: No rashes, No breakdown, - - Generalized ecchymosis. Posterior scalp laceration with reji intact. Musculoskeletal: No Tenderness to Palpation of Joints or Extremities Neurological: Cranial nerves II-XII grossly intact, Neuro grossly intact Psych/Mental Status: Normal Affect, Appropriate Microbiology Past 72 Hours 04/29/20 21:25 Stool Stool Occult Blood (CASANDRA) - Final Laboratory Results 04/29/20 11:40: Vitamin D 25-Hydroxy 65.9 04/29/20 16:20: COVID-19 (STEVAN) Negative 04/29/20 16:20: Hgb 10.9 L, Hct 34.2 L 04/30/20 05:30: WBC 9.1, RBC 3.89 L, Hgb 11.5 L, Hct 36.4 L, MCV 93.6, MCH 29.6, MCHC 31.6 L, RDW Std Deviation 52.3 H, RDW Coeff of Cher 15.5 H, Plt Count 326, MPV 9.1 Current Medications Acetaminophen (Tylenol) 650 mg PO Q6H PRN PRN PRN Reason: Pain Score 1-10/Temp > 100.7 F Last Admin: 04/30/20 03:11 Dose: 650 mg Documented by: Gabapentin (Neurontin) 300 mg PO QHS [facility] Last Admin: 04/29/20 20:45 Dose: 300 mg Documented by: Ketorolac Tromethamine (Toradol (Bkc)) 15 mg IV Q8H PRN PRN Reason: PAIN SCORE 1-10/10 Last Admin: 04/30/20 03:10 Dose: 15 mg Documented by: Sodium Chloride () 10 - 40 ml IV UD PRN PRN Reason: SALINE FLUSH Last Admin: 04/30/20 09:29 Dose: 10 ml Documented by: Medical Necessity - Tobacco Use Smoking Status: Current every day smoker Assessment/Plan All Active Problems Multiple falls (Acute) Scalp laceration (Acute) Restless leg syndrome (Acute) 1. Hypotension-unclear etiology, now stable. Hold BP regimen. 2. Acute anemia-patient's baseline hemoglobin unclear. Patient had prior iron studies as outpatient, suspect chronic anemia as well. Patient received 2 units PRBC for hemoglobin 7.7. Hemoglobin this morning 11.5. Suspect prior lab low due to dilution. Patient received significant fluids secondary to 1. Trend CBC. Xarelto discontinued. Stool for occult blood negative. 3. Recurrent falls, lower extremity weakness- unclear etiology. Possibly due to #1. Patient reports severe lumbar back pain. Lumbar x-ray unremarkable. PT/OT. Fall precautions. MRI of lumbar spine ordered. 4. Restless leg syndrome- worsened recently. Not on regimen. Will initiate gabapentin QHS. TSH, mag normal. 5. Hypertension-hold BP regimen given #1. 6. Carotid stenosis- continue aspirin, statin. 7. Hyperlipidemia-continue statin. 8. Tobacco dependence-encouraged cessation. 9. Traumatic right tibial fracture, present on admission-Dr. José Luis Perez consulted. Patient to undergo echo and stress test for preoperative evaluation. PT/OT. DVT prophylaxis-SCDs This patient was seen by KAYLA Downs under the supervision of Dr. Kiser.
--- NOTE | 2020-04-30 11:58 | PCM.CONS.GEN ---
Problem List (1) Closed right fibular fracture Status: Acute Qualifiers: Encounter type: subsequent encounter Fibula location: shaft Fracture morphology: comminuted Fracture alignment: displaced Fracture healing: with routine healing Qualified Code(s): S82.451D - Displaced comminuted fracture of shaft of right fibula, subsequent encounter for closed fracture with routine healing Reason for Consult Date of Consultation: 04/30/20 Reason for Consultation: Right fibula shaft fracture, closed, displaced History of Present Illness: The patient is a 65 year old F who presented to the emergency room on 04/28/2020 due to multiple falls over the past 3 days and severe restless legs. Patient states she has had restless leg syndrome for a long time however it has worsened recently. She has been getting up in the night due to her restless legs and has had multiple falls. On 04/21/2020, patient states that she had experience restless leg syndrome. She got up to alleviators, and fell. She felt pain in her right ankle at that time. Patient presented to me in my office on April 27 for evaluation. X-rays were taken, revealing a midshaft fibula fracture that was comminuted and displaced. Patient presented with daughter at that time. I discussed the severity of the fracture that was present, and due to her injury, I recommended surgical intervention. Patient was agreeable at that time to surgical intervention. Surgical intervention was originally planned for , May 03, 2020. Unfortunately, patient experienced another fall on 04/28/2020, prior to admission. This is what prompted her to come to the emergency department for further evaluation. Fall prior to admission resulted in posterior scalp laceration which was repaired in the ED. Patient was very drowsy during assessment in the ED. Due to bouts of hypotension, patient was originally admitted to the intensive care unit. After medical treatment was employed and her blood pressure stabilized, she was transferred to the [facility] unit for further evaluation. She has a past medical history of hypertension, hyperlipidemia, carotid artery disease, osteoporosis. Past Medical History Past Medical History (Chronic Problems): Chronic Problems Hypertension (Chronic) Carotid stenosis (Chronic) Allergies No Known Allergies Allergy (Verified 04/28/20 04:52) Home Medications: Ambulatory Orders Medication Instructions Recorded Aspirin [Aspirin, Baby] 81 mg PO DAILY@0800 04/28/20 Denosumab [Prolia] 60 mg SQ X1 04/28/20 Lisinopril [Zestril] 40 mg PO DAILY 04/28/20 Rivaroxaban [Xarelto] 2.5 mg PO BID 04/28/20 Rosuvastatin Calcium [Crestor] 10 mg PO DAILY 04/28/20 Surgical History: - - Carpal tunnel surgery, right lumpectomy, surgery. 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 Denies known paternal cardiac history. Review of Systems Constitutional: Reports: Malaise, Weakness, Fatigue. Denies: Anorexia, Chills, Fever, Night Sweats Eyes: Denies: Blurred vision, Cataracts HEENT: Reports: Difficulty Hearing. Denies: Difficulty Swallowing, Dysphasia Cardiovascular: Reports: Light Headedness, Syncope. Denies: Chest Pain, Chest Pressure, Palpitations Respiratory: Denies: Shortness of Breath Gastrointestinal: Denies: Abdominal Pain, Constipation, Nausea, Vomiting Genitourinary: Denies: Dysuria, Frequency Musculoskeletal: Reports: Leg Pain - admits to right ankle and lower leg pain. Admits to B/L restless legs, improved since admission Skin: Denies: Wounds Neurological: Reports: Balance problems Psychiatric: Denies: Anxiety, Depression Endocrine: Denies: Change in Body Habitus, Heat/ Cold Intolerance, Polydipsia, Polyuria Patient Problems: Active and Suspected Problems Multiple falls (Acute) Scalp laceration (Acute) Restless leg syndrome (Acute) Closed right fibular fracture (Acute) Subjective: Patient seen at bedside resting comfortably. Patient missed improved pain of her right ankle and her bilateral lower extremities. Patient states that since seeing me on Thursday, her pain is overall improved. Patient admits to continued low back pain. Patient admits to head pain in the area of her scalp. Patient denies any other acute complaints at this time. Currently, patient denies fever, chills, nausea, vomiting, shortness of breath, chest pain. Patient denies B/L calf pain. Objective: RAMONE: Vascular assessment: Reveals a weakly palpable dorsalis pedis and posterior tibial pulse bilaterally. Capital time is less than 3 seconds all digits. Temperature gradient is within normal limits bilaterally. Minimal nonpitting edema noted around the lateral medial malleolus of the right ankle. Neurological: Gross and protective sensation are intact to the bilateral lower extremities from the distal digits to the tibial tuberosity. Dermatological: Skin envelope is intact to the bilateral lower extremities at this time with no evidence of open lesions noted. Diffuse varicosities noted throughout the bilateral lower extremity. No evidence of maceration noted. Skin lines present around the medial lateral aspect of the right ankle. Musculoskeletal: Positive pain upon palpation compression of the lateral aspect of the right fibula in the area of the distal midshaft. Minimal pain upon palpation compression of the lateral ankle ligamentous complex. No pain upon palpation or compression of the syndesmosis of the right ankle. No pain on palpation or compression of the deltoid ligament of the right ankle. Achilles tendon feels intact at this time and no evidence of pain. No other areas of pain noted of the right ankle. Negative lateral squeeze test noted the right calcaneus. Subtalar joint inversion and eversion is within normal limits and pain-free. No areas of tenderness noted of the right foot. No pain upon palpation or compression of the metatarsal phalangeal joint of the tarsometatarsal joint of the right foot. No tenderness of palpation or compression of the styloid process of the fifth metatarsal the right foot. No other areas of tenderness noted. - Physical Exam Vitals/I&O's: Vital Signs Temp Pulse Resp BP Pulse Ox 98.9 F 77 16 134/73 H 92 04/30/20 09:19 04/30/20 09:19 04/30/20 09:19 04/30/20 09:19 04/30/20 09:19 Oxygen Flow Rate (L/min) 3 Oxygen Delivery Method Nasal Cannula Weight: 52.1 kg Body Mass Index (BMI) 23.4 Intake and Output for Last 24 Hours 04/28/20 04/29/20 04/30/20 23:59 23:59 23:59 Intake Total 5708.33 / 6108.33 2781.66 / 2781.66 570.75 / 570.75 Output Total 500 / 500 2500 / 2500 300 / 300 Balance 5208.33 / 5608.33 281.66 / 281.66 270.75 / 270.75 General: Alert, Oriented x3, Cooperative, No apparent distress HEENT: Atraumatic, PERRLA Oral: Moist Mucosa Neck: Supple, No JVD Lungs: Clear to auscultation, Normal air movement, No rhonchi, No wheeze, No rales Cardiovascular: Regular rate, Regular Rhythm, Normal S1, Normal S2 Abdomen: Bowel Sounds Present, Soft, Non Tender, Non-Distended Extremities: Capillary Refill Less than 3 Seconds, Diminished Peripheral Pulses, Tenderness - upon palpation and compression of the right ankle Skin: No rashes, No breakdown Neurological: Sensory exam intact to light touch and pain Psych/Mental Status: Alert and oriented to time, place, person, mood and affect Microbiology Past 72 Hours 04/29/20 21:25 Stool Stool Occult Blood (CASANDRA) - Final Laboratory Results 04/29/20 11:40: Vitamin D 25-Hydroxy 65.9 04/29/20 16:20: COVID-19 (STEVAN) Negative 04/29/20 16:20: Hgb 10.9 L, Hct 34.2 L 04/30/20 05:30: WBC 9.1, RBC 3.89 L, Hgb 11.5 L, Hct 36.4 L, MCV 93.6, MCH 29.6, MCHC 31.6 L, RDW Std Deviation 52.3 H, RDW Coeff of Cher 15.5 H, Plt Count 326, MPV 9.1 Current Medications Acetaminophen (Tylenol) 650 mg PO Q6H PRN PRN PRN Reason: Pain Score 1-10/Temp > 100.7 F Last Admin: 04/30/20 03:11 Dose: 650 mg Documented by: Gabapentin (Neurontin) 300 mg PO QHS [facility] Last Admin: 04/29/20 20:45 Dose: 300 mg Documented by: Ketorolac Tromethamine (Toradol (Bkc)) 15 mg IV Q8H PRN PRN Reason: PAIN SCORE 1-10/10 Last Admin: 04/30/20 03:10 Dose: 15 mg Documented by: Sodium Chloride () 10 - 40 ml IV UD PRN PRN Reason: SALINE FLUSH Last Admin: 04/30/20 09:29 Dose: 10 ml Documented by: Assessment/Plan All Active Problems Multiple falls (Acute) Scalp laceration (Acute) Restless leg syndrome (Acute) Closed right fibular fracture (Acute) Assessment: This is a 65-year-old female who was admitted to the hospital with multiple syncopal falls and was a right fibula closed displaced fracture. Plan: Patient chart reviewed and patient evaluated. Full discussion had with the patient about the patient's current clinical condition. The discussion that was had with the patient on 04/27/2020 was reinforced to the patient. Due to the fracture that is present, 2 options can be employed. Conservative options would include nonweightbearing and below the knee cast. This could be for period of up to 12 weeks. I discussed with the patient the risks and benefits of this, including delayed or nonhealing bone, early onset arthritis, decreased function of limb, continued pain. I discussed the surgical intervention for this, including an open reduction with internal fixation of the right fibula with possible open reduction with internal fixation of the right syndesmosis. I discussed the risks and benefits to this, including but not limited to delayed or nonhealing wounds, delayed or nonhealing bone, DVT, infection, loss of function of limb, loss of limb, loss of life. Furthermore, since the patient is a smoker, she is at increased risk of delayed or nonhealing wounds and delayed or nonhealing bone. Patient displayed verbal understanding both conservative and surgical interventions. I discussed with the patient that due to the fracture that is present, I recommended surgical intervention. Patient displayed verbal understanding, and is agreeable to surgical intervention. We are currently awaiting the remaining tests ordered by the primary care physician. At this time, after speaking with Dr. Kiser, he believes that the patient will be cleared for operative intervention. Awaiting clearance from primary care physician. Operative intervention is scheduled for tomorrow, May 01, 2020 at 12:30 PM. Surgery will be an open reduction with internal fixation of the fibula with possible open reduction with internal fixation of the syndesmosis of the right ankle. I like that the patient n.p.o. at midnight tonight for surgical intervention Fluids and medicine per primary care team. We will continue DVT prophylaxis after surgical intervention. I will continue to follow patient closely and update accordingly. I will have the patient fill out and sign the consent in the preoperative area. If there are any questions or concerns, please do not hesitate to reach out to me. I appreciate the medical management of this patient from the primary care team. I will continue to follow patient closely and update accordingly. Thank you very much for the consultation and allowing me to take part in the care of your patient. Procedure Criteria Procedure Type: Essential Procedure Essential: Yes Criteria Statement: On 01/24/2020 the [facility] ([facility]) Public Order signed by [facility] Director Kiara Smith M.D., regarding the Management of Non-Essential Surgeries and Procedures for the purpose of preserving Personal Protective Equipment (PPE) and critical hospital capacity and resources within [place] went into effect as of 01/25/2020 at 5:00PM. According to the [facility] Public Order: This action will remain in full force and effect until the State of Emergency declared by the Governor no longer exists or the Director of the [facility] rescinds or modifies this Order. This [facility] order stated all non-essential or elective surgeries and procedures that utilize PPE should be delayed unless there is undue risk to the current or future health of a patient. After reviewing the aforementioned [facility] Public Order and the patient's clinical case, I have determined that the scheduled procedure meets the criteria to go forward. Risk to Patient if Procedure Delayed: Threat of permanent dysfunction of an extremity or organ if delayed Office Visits / Consults: [id number] IP Consult L3
--- NOTE | 2020-04-30 12:17 | RAD_ITS ---
STUDY: X-RAY - RIGHT ANKLE REASON FOR EXAM: Female, 65 years old. FIBULA FX , FALL, PAIN TECHNIQUE: 3 view(s) of the ankle. COMPARISON: None. FINDINGS: There is an acute, minimally displaced spiral fracture in the distal fibula with soft tissue swelling. Normal visualized distal tibia. Normal medial and lateral malleoli. Normal tibiotalar articulation and ankle mortise. Normal visualized talus and calcaneus. The visualized subtalar, talonavicular, calcaneocuboid and tarsal articulations are normal. The soft tissue structures are unremarkable. RAD/Ankle min 3 Views IMPRESSION: Acute, minimally displaced, multi fragmented fracture of the distal fibula with soft tissue swelling Electronically Signed: Bladimir Ramos MD at 12:56 EDT , Service support ,
--- NOTE | 2020-04-30 13:45 | CASEMGMT ---
Addendum entered by Freddy Ly 04/30/20 15:40: Dr. Kiser spoke with patient re: skilled facility on discharge after discharge. Daughter has stated to physician that she is not able to care for pt as she is up often during the night and falling. Diann CM aware and will follow for dc planning. Original Note: RN CM Assessment Note Intro role of CM to patient in room. Pt is awake, alert and able to participate in assessment. Pt states she lived independently prior, but her daughter Estephania Arnold will be staying with her on dc. Discussed possible need for PT/OT via home health or outpt on dc. PT/OT evaluations pending. Pt is agreeable if recommended. Diagnosis: Displaced spiral fracture in distal fibula- ORIF planned for 05/01/[address] Perez. PCP: KAYLA Lewis Specialists: Dr. Virk Insurance: [facility] Preferred Pharmacy: [facility] Prescription Benefit: yes LNOK: Daughter Estephania Living Arrangements: One story home with laundry in basement. Pt was independent prior to admission, but with history of multiple falls. Daughter will be staying with patient 01/06 on discharge to assist per pt. Tranportation: drove prior, but daughter is able to provide transportation DME: walker HHC: none SNF: none Patient DC Goals: Home with daughter to support DC Plan: anticipate Home. PT/OT evaluations pending post surgery. Home Health vs Outpt therapy. CM available for discharge planning coordination. Contact CM for any concerns/needs that may arise. Israel SINCLAIR RN ACM
--- NOTE | 2020-04-30 13:45 | NURSING ---
PT TALKING WITH DAUGHTER ON THE PHONE
[2020-04-30 13:47] VITALS: BP 129/58; PULSE 90; RESP 18; TEMP 36.6; O2SAT 100
--- NOTE | 2020-04-30 15:19 | STRESSREP ---
Stress Test Report Pharmacologic myocardial perfusion stress test. 65-year-old lady for preoperative cardiac evaluation. Stress protocol: Resting EKG demonstrates normal sinus rhythm with a rate of 93 bpm normal intervals are noted resting blood pressure is 118/70 mmHg. 0.4 mg of regadenoson was infused per usual protocol for rate up intravenous saline flush injection continuous fashion editor was performed. The maximum heart rate attained was 116 bpm which was 75% of maximum predicted heart rate the maximum workload was 1 metabolic equivalent. At rest there were no ST or T wave changes noted suggest abnormal flow reserve at peak infusion nonspecific ST-T wave changes were noted with no meet the criteria for abnormal flow reserve. The resting blood pressure was 118/70 with a final blood pressure 110/64. Myocardial perfusion protocol. 12.0 mCi of technetium 99m sestamibi was injected at rest. 0.4 mg of regadenoson was infused per usual protocol peak infusion 36.0 mCi of technetium 99m sestamibi was injected stress images were obtained stress and rest images were reconstructed and compared in the short axis vertical long horizontal long axis. Gated images were also obtained Perfusion SPECT analysis: Review of the stress images demonstrate normal uptake of tracer noted in all areas of myocardium the resting images similar demonstrate normal uptake of tracer noted in all areas of the myocardium. No reversibility is noted suggest ischemia no clinical angina is noted. Gated SPECT analysis: The gated ejection fraction is 62%. Conclusion: Normal pharmacologic myocardial perfusion stress test. Preserved ejection fraction.
[2020-04-30 19:59] VITALS: BP 100/56; PULSE 88; RESP 18; TEMP 37.2; O2SAT 97
[2020-04-30 20:07] VITALS: BMI 22.5
[2020-04-30] MEDS: Gabapentin 300 MG Capsule PO (20:22)
[2020-05-01] VITALS (14 sets, daily range): BP systolic 92–130; BP diastolic 59–82; PULSE 66–132; RESP 16–20; TEMP 36.3–37.1; O2SAT 93–100; BMI 22.6; BMI 22.3
[2020-05-01] MEDS: Pramipexole Di-HCl 0.125 MG Tablet PO ×2 (00:58→21:44)
--- NOTE | 2020-05-01 06:00 | RAD_ITS ---
STUDY: X-RAY CHEST REASON FOR EXAM: Female, 65 years old. Dyspnea TECHNIQUE: Single AP portable view of the chest. COMPARISON: None. FINDINGS: Ill-defined airspace disease seen in the right lung base suggesting pneumonia. There is a small right pleural effusion. Normal size heart. Normal mediastinum and candido. Normal visualized pulmonary arteries. Normal visualized aortic arch and descending thoracic aorta. Normal visualized thoracic spine. Normal visualized ribs, clavicles, and shoulders. There is no demonstrated abnormality of the visualized soft tissue structures of the upper abdomen. RAD/Chest 1 View (Portable) IMPRESSION: Right lower lobe pneumonia. Small right pleural effusion. Electronically Signed: Jillian Chairez, at 6:24 EDT Tel , Service support ,
[2020-05-01 06:44] LABS: Hematocrit 36.4 % (37-47); Hemoglobin 11.7 g/dL (12.0-15.0); Mean Corp Hgb Conc 32.1 g/dL (32-36); Mean Corpuscular Volume 93.3 fL (81-99); Mean Platelet Vol. 8.9 fl (6.2-12.0); Platelet Count 328 K/mm3 (150-450); RBC Distribution Width CV 14.9 % (11.6-14.6); RBC Distribution Width SD 49.8 fl (35.1-43.9); White Blood Count 7.9 K/mm3 (4.4-11.0)
[2020-05-01 06:55] LABS: Anion Gap 7 (5-15); BUN 8 mg/dL (7-18); BUN/Creat Ratio 22.3 RATIO (10-20); Calcium,Total 8.5 mg/dL (8.5-10.1); Chloride 106 mmol/L (98-107); Creatinine, Serum 0.36 mg/dL (0.55-1.02); EST Glomerular Filtration Rate 192 mL/min (>60); Est Glom Filt Rate - Afr Amer 232 mL/min (>60); Estimated Creatinine Clearance 45.07 ml/min; Glucose 109 mg/dL (74-106); International Normalized Ratio 1.2; Potassium 3.6 mmol/L (3.5-5.1); Prothrombin Time (Protime)PT. 15.1 SECONDS (11.7-14.9); Sodium Level 140 mmol/L (136-145)
[2020-05-01 06:56] LABS: Partial Thromboplast Time 35.6 Seconds (24.1-36.2)
[2020-05-01] MEDS: 0.9% Saline Lock 10 ML Syringe IV (08:48)
[2020-05-01] MEDS: 0.9% Normal Saline 1,000 ML 100 ML IV (12:20)
[2020-05-01] MEDS: Cefazolin 2 GM in 0.9% Normal Saline 100 ML IV ×2 (12:54→21:44)
--- NOTE | 2020-05-01 12:59 | RAD_ITS ---
STUDY: X-RAY - RIGHT ANKLE REASON FOR EXAM: Female, 65 years old. ORIF right fibula TECHNIQUE: 6 intraoperative view(s) of the ankle. COMPARISON: None. FINDINGS: 6 limited intraoperative views of the left ankle were performed as the patient has undergone open reduction internal fixation of a distal fibular fracture. A side plate anchored with 6 screws has been placed. Alignment at the fracture site is anatomic. Follow-up recommended to assure complete osseous union RAD/Ankle min 3 Views IMPRESSION: ORIF of a distal fibular fracture. Alignment at the fracture site is anatomic. Electronically Signed: Bladimir Ramos MD at 16:17 EDT , Service support ,
--- NOTE | 2020-05-01 13:31 | PN_ITS ---
Patient Problems: Active and Suspected Problems Multiple falls (Acute) Scalp laceration (Acute) Restless leg syndrome (Acute) Closed right fibular fracture (Acute) Subjective: Patient seen and examined. Daughter at bedside. Patient denies current symptoms or complaints. To undergo open reduction with internal fixation of the right fibula with possible open reduction with internal fixation of the right syndesmosis. Patient agreeable to rehab following surgery. - Physical Exam Vitals/I&O's: Vital Signs Temp Pulse Resp BP Pulse Ox 97.9 F 82 18 115/63 98 05/01/20 11:12 05/01/20 11:12 05/01/20 11:12 05/01/20 11:12 05/01/20 11:12 Oxygen Flow Rate (L/min) 3 Oxygen Delivery Method Nasal Cannula Weight: 115 lb 4.828 oz Body Mass Index (BMI) 22.6 Intake and Output for Last 24 Hours 04/29/20 04/30/20 05/01/20 23:59 23:59 23:59 Intake Total 2781.66 / 2781.66 1020.75 / 1020.75 0 / 0 Output Total 2500 / 2500 700 / 700 850 / 850 Balance 281.66 / 281.66 320.75 / 320.75 -850 / -850 General: Alert, Oriented x3, Cooperative HEENT: Atraumatic, PERRLA, EOMI, Normocephalic Neck: Supple, No JVD, Negative Carotid Bruits Lungs: Clear to auscultation, Normal air movement Cardiovascular: Regular rate, No murmurs Abdomen: Bowel Sounds Present, Soft, Non Tender, Non-Distended Extremities: No clubbing, No cyanosis, No edema, Capillary Refill Less than 3 Seconds Skin: No rashes, No breakdown, - - Generalized ecchymosis. Posterior scalp laceration with reji intact. Musculoskeletal: No Tenderness to Palpation of Joints or Extremities Neurological: Cranial nerves II-XII grossly intact, Neuro grossly intact Psych/Mental Status: Normal Affect, Appropriate Microbiology Past 72 Hours 04/29/20 21:25 Stool Stool Occult Blood (CASANDRA) - Final Laboratory Results 05/01/20 06:20: WBC 7.9, RBC 3.90 L, Hgb 11.7 L, Hct 36.4 L, MCV 93.3, MCH 30.0, MCHC 32.1, RDW Std Deviation 49.8 H, RDW Coeff of Cher 14.9 H, Plt Count 328, MPV 8.9 05/01/20 06:20: Sodium 140, Potassium 3.6, Chloride 106, Carbon Dioxide 27.0, Anion Gap 7, BUN 8, Creatinine 0.36 L, Estim Creat Clear Calc 45.07, Est GFR (MDRD) Af Amer 232, Est GFR (MDRD) Non-Af 192, BUN/Creatinine Ratio 22.3 H, Glucose 109 H, Calcium 8.5 05/01/20 06:20: PT 15.1 H, INR 1.2, APTT 35.6 Current Medications Acetaminophen (Tylenol) 650 mg PO Q6H PRN PRN PRN Reason: Pain Score 1-10/Temp > 100.7 F Last Admin: 04/30/20 20:22 Dose: 650 mg Documented by: Gabapentin (Neurontin) 300 mg PO QHS [facility] Last Admin: 04/30/20 20:22 Dose: 300 mg Documented by: Ketorolac Tromethamine (Toradol (Bkc)) 15 mg IV Q8H PRN PRN Reason: PAIN SCORE 1-10/10 Last Admin: 04/30/20 23:05 Dose: 15 mg Documented by: Pramipexole Dihydrochloride (Mirapex) 0.125 mg PO QHS [facility] Last Admin: 05/01/20 00:58 Dose: 0.125 mg Documented by: Sodium Chloride () 10 - 40 ml IV UD PRN PRN Reason: SALINE FLUSH Last Admin: 05/01/20 08:48 Dose: 10 ml Documented by: Medical Necessity - Tobacco Use Smoking Status: Current every day smoker Assessment/Plan All Active Problems Multiple falls (Acute) Scalp laceration (Acute) Restless leg syndrome (Acute) Closed right fibular fracture (Acute) 1. Hypotension-unclear etiology, now stable. Hold BP regimen. 2. Acute anemia-patient's baseline hemoglobin unclear. Patient had prior iron studies as outpatient, suspect chronic anemia as well. Patient received 2 units PRBC for hemoglobin 7.7. Hemoglobin this morning 11.7. Suspect prior lab low due to dilution. Patient received significant fluids secondary to #1. Trend CBC. Xarelto discontinued. Stool for occult blood negative. 3. Recurrent falls, lower extremity weakness- unclear etiology. Possibly due to #1. Lumbar x-ray unremarkable. PT/OT. Fall precautions. MRI of lumbar spine demonstrates multilevel degenerative changes. 4. Restless leg syndrome- worsened recently. Not on regimen. Continue gabapentin nightly which patient states has improved her symptoms. TSH, mag normal. 5. Hypertension-hold BP regimen given #1. 6. Carotid stenosis- continue aspirin, statin. 7. Hyperlipidemia-continue statin. 8. Tobacco dependence-encouraged cessation. 9. Traumatic right fibular fracture, present on admission-Dr. José Luis Perez consulted. To undergo open reduction with internal fixation of the right fibula with possible open reduction with internal fixation of the right syndesmosis. Patient underwent preoperative echocardiogram and stress test, both which were unremarkable. Anticipate SNF for rehab following surgery. DVT prophylaxis-SCDs This patient was seen by KAYLA Downs under the supervision of Dr. Kiser.
[2020-05-01] MEDS: Lactated Ringers 1,000 ML 100 ML IV ×2 (14:00→16:24)
--- NOTE | 2020-05-01 15:19 | OP.PCM_ITS ---
Problem List (1) Closed right fibular fracture Status: Acute Qualifiers: Encounter type: subsequent encounter Fibula location: shaft Fracture morphology: comminuted Fracture alignment: displaced Fracture healing: with routine healing Qualified Code(s): S82.451D - Displaced comminuted fracture of shaft of right fibula, subsequent encounter for closed fracture with routine healing Report of Operation Date of Procedure: 05/01/20 Pre-Operative Diagnosis: 1. Displaced comminuted fibular shaft fracture, right side, closed Post-Operative Diagnosis: Same as preoperative Surgery/Procedure Performed:: Open reduction with internal fixation of right fi bular shaft fracture Description of Surgical Findings:: Consistent with diagnosis. Reduction of deformity achieved and held with internal fixation. Stress testing of syndesmosis revealed intact syndesmosis. order department supervisor: Elinor Temple Type of Anesthesia:: General/Regional - popliteal block to the right lower extremity Anesthesiologist: Bob Jean Special Medications: 2 grams of ancef given preoperatively Drains: None Estimated Blood Loss (mL): 10 Description of Procedure: Pathology: None Anesthesia: General with a popliteal block to the right lower extremity Hemostasis: MAC thigh tourniquet placed to the level of the right thigh at 250 mmHg for 130 minutes Estimated blood loss is 10 mL Materials: 1. Arthrex one third tubular plate, 8 hole. 2. Arthrex 3.5 x 16 mm cortical lag screw x2 #3. Arthrex 3.5 x 12 mm cortical screw x3 #4 Arthrex 3.5 x 12 mm locking screw #5. Arthrex 3.5 x 14 mm locking screw. 6. Arthrex 3.5 x 16 mm locking screw. 7. Size 0 Vicryl. 8. Size 2-0 Vicryl. 9. Size 3-0 Vicryl. 10. Size 3-0 nylon Injectables: None Complications: None Condition: Stable Indications: The patient is a 65 year old F who presented to the emergency room on 04/28/2020 due to multiple falls over the past 3 days and severe restless legs. Patient states she has had restless leg syndrome for a long time however it has worsened recently. She has been getting up in the night due to her restless legs and has had multiple falls. On 04/21/2020, patient states that she had experience restless leg syndrome. She got up to alleviate this, and fell. She felt pain in her right ankle at that time. Patient presented to me in my office on April 27 for evaluation. X-rays were taken, revealing a midshaft fibula fracture that was comminuted and displaced. Patient presented with daughter at that time. I discussed the severity of the fracture that was present, and due to her injury, I recommended surgical intervention. Patient was agreeable at that time to surgical intervention. Surgical intervention was originally planned for April. Unfortunately, patient experienced another fall on 04/28/2020, prior to admission. This is what prompted her to come to the emergency department for further evaluation. Fall prior to admission resulted in posterior scalp laceration which was repaired in the ED. Patient was very drowsy during assessment in the ED. Due to bouts of hypotension, patient was originally admitted to the intensive care unit. After medical treatment was employed and her blood pressure stabilized, she was transferred to the [facility] unit for further evaluation. During this admission, I discussed with the patient conservative and surgical interventions for the fracture that was present. Conservative therapy would include nonweightbearing and a below the knee cast. Risks and benefits discussed about conservative therapy. Surgical intervention was discussed, including open reduction with internal fixation of the fibula and possible open reduction with internal fixation of the syndesmosis. The risks and benefits of surgical intervention were discussed, including but not limited to delayed or nonhealing wounds, de layed or nonhealing bone, DVT, infection, decreased function of limb, loss of limb, loss of life. All the patient's questions were answered to her satisfaction and all of her concerns were addressed. No guarantees were made as to the outcome of the procedure. Patient understood all aspects of the procedure, and was agreeable to surgical intervention at this time. It was decided that surgical intervention would be performed while the patient is an inpatient. Operative report: Before the patient was brought to the operating room, the risks, benefits, possible outcomes and possible complications of the surgical procedure were discussed once again. All the patient's questions were answered to her satisfaction and all of her concerns were addressed. No guarantees were made as to the outcome of the procedure. Patient understood all aspects of the procedure, and consent was then signed by the patient. Before the patient was brought to the operating room, the anesthesiologist administered a popliteal block to the right lower extremity. Patient was then brought to the operating room and placed on the operating table in supine position. After timeout, under general anesthesia, a well-padded pneumatic thigh tourniquet was placed to level of the right thigh. Anesthesia to control the airway, and adequate padding was placed in all areas of pressure points. The right foot, ankle, leg were then scrubbed, prepped, draped in the usual sterile manner. At this time, radiographic evaluation was used to determine the level of the fibular fracture and the lateral malleolus. These were then marked on the patient. Next, the right foot, ankle, leg were then elevated and exsanguinated via Esmarch inflation pneumatic thigh tourniquet was performed to 250 mmHg. Attention was then directed lateral aspect of the right fibula. At this time, #15 blade was used to perform a linear longitudinal incision starting on the lateral aspect of the distal one third of the fibular shaft extending distally to the proximal aspect of the lateral malleolus. This incision was approximately 8 cm in length. This incision was deepened utilizing sharp and blunt dissection. Care was taken retract all vital neural and vascular structures. All bleeders were cauterized and ligated as necessary. Next, a linear periosteal incision was made in line with the original skin incision. The periosteal and capsular structures were then reflected anteriorly and posteriorly, thus exposing the fibula and the fracture at the operative site. Next, a curette was used to remove any fibrous tissue contained within the fracture site. The surgical site was irrigated with copious amounts of normal sterile saline. Next, a reduction of the fibula was performed and held via temporary fixation. Radiographic evaluation was then performed. The fibula was noted to be out the length at this time. The fracture was noted to be reduced from preoperative assessment. At this time, 2 of the Arthrex 3.5 x 16 mm screws were placed from a proximal anterior to distal posterior fashion across the fracture fragment site. Care was taken make sure that the screws were as perpendicular to the fracture as possible. Of note during insertion of the screws was the adequate compression of the fracture. Furthermore, no shifting of the fragments occurred during insertion of the screws. Once the screws were fully inserted, all temporary fixation was then removed. Radiograph evaluation was then performed. The screws were noted to neither be too long or too short and were noted to hold the fibula in the reduced position. The fibula was noted to be out to length this time and the fracture was noted to be reduced. At this time, the Arthrex 8 hole one third tubular plate was placed over the lateral aspect of the fibula was held via temporary fixation. Radiograph evaluation was performed to determine the exact level of the plate. Once adequate positioning was had, this was held via temporary fixation. Next, this was held to the lateral aspect of the fibula utilizing a mixture of nonlocking and locking screws. Of note during insertion of the screws was the adequate compression of the plate to the bone. Furthermore, no shifting any of the fragments occurred during insertion of the screws. Once all screws were fully inserted, all temporary fixation was then removed. Radiographic evaluation was then performed. There was noted to be 3 points of fixation proximal and 3 points of fixation distal to the fracture with the plate. The plate was noted to not be too long or too short. All internal fixation with the screws was noted to not be too long or too short. The fibula was noted to be held out to length in the reduced position. The fracture was noted to be held in the reduced position. At this time, the cotton and hook test were performed under live radiographic evaluation to evaluate the syndesmosis. The syndesmosis was deemed intact at this time and no widening at the distal tibiofibular joint was noted. At this time, the surgical site was irrigated copious muscle normal sterile saline. The periosteal and capsular structures were reapproximated and coapted utilizing size 0 Vicryl. The subcutaneous tissue was reapproximated coapted utilizing size 2-0 Vicryl and 3-0 Vicryl. The skin was reapproximated coapted utilizing size 3-0 nylon in a simple interrupted and horizontal mattress fashion. The pneumatic thigh tourniquet was then released and a prompt hyperemic response was noted the entirety of the right lower extremity. The surgical site was then dressed with Betadine soaked gauze, and a dry sterile dressing consisting of 4 x 4 gauze, ABD pads, wrapped with Kerlix. The right foot and ankle were then wrapped with an Leoncio bandage. Next, a stockinette was placed over the right lower extremity. Cast padding was wrapped from the metatarsal heads extending proximally to the level just distal to the tibial tuberosity. A posterior splint was fashioned to the right lower extremity and was adhered to the right lower extremity utilizing Leoncio bandages. Neurovascular status was assessed at the end of the application and deemed intact to the right lower extremity. The patient tolerated the anesthesia and procedure well and was transported to the PACU with vital signs stable neurovascular status intact the right lower extremity. After period of postoperative monitoring, patient be transferred back to the general medical floor and will continue to be followed by me in house. The surgical dental assistant, the nurse practitioner, was utilized throughout the entire procedure. She helped with patient positioning, holding of limb, holding of retractors. She helped with exposure throughout. She helped with bandage application, and splint application. Without the surgical dental assistant, surgical time would have been increased and surgical outcome could have been less optimal. At this time, there is no further surgical intervention by me. She is to keep the dressing to her right lower extremity clean, dry, intact until her follow-up in the office within 1 week. Prescriptions will be left in chart by me for antibiotic prophylaxis, DVT prophylaxis, and pain control. She is to remain nonweightbearing to the right lower extremity with assistive devices. She is to continue elevation above the level of her heart as often as possible, and ice around her knee as needed. - Complications None - Admit VTE Documentation VTE Present on Admission: No VTE Mechan Device Prophylaxis: SCD's VTE Pharm Prophylaxis ordered?: Yes
--- NOTE | 2020-05-01 16:11 | PCM.DC.ORTHO ---
Discharge Diet: No Restrictions Discharge Activity: May Not Drive, May Not Shower, Use Walker, Use Crutches Weight Bearing Status: No weight bearing Keep extremity elevated above heart level: Right Leg Additional Activity Instructions:: 1. Keep the dressing clean, dry, intact to right leg. Do not get dressing wet. Do not remove dressing. If get dressing wet, call office for further instruction. 2. Elevate right foot above level of heart as much as possible until follow-up appointment. 3. Ice around right knee 20 minutes on, 20 minutes off, every hour while needed. 4. Do not place any weight on right foot. No walking or standing on right foot. Use crutches/walker/wheelchair for assistance. 5. Take doxycycline (antibiotic) twice a day as instructed. 6. Take Xarelto 5 mg once a day as instructed. 7. Take Percocet (pain medication) as instructed and as needed for pain. Call your doctor if your incision/area has: Sudden Increased Bleeding, Increased Pain/ Swelling Call your doctor if you observe: Fever of 101 or Higher, Inability to have a bowel movement, Shortness of breath, Dizziness, Chest pain, Prolonged hiccoughing, Increased palpitations (irregular heartbeat), Calf discomfort, Uncontrolled pain Suture Line Care: Avoid Pulling/Pushing, Avoid Pinching/Bending Cleanse incision/area with: Keep Dressing Clean & Dry Allergies/Adverse Reactions: Allergies No Known Allergies Allergy (Verified 04/28/20 04:52) Medications to take at Discharge Aspirin [Aspirin, Baby] 81 mg PO DAILY@0800 04/28/20 Denosumab [Prolia] 60 mg SQ X1 04/28/20 Lisinopril [Zestril] 40 mg PO DAILY 04/28/20 Rivaroxaban [Xarelto] 2.5 mg PO BID 04/28/20 Rosuvastatin Calcium [Crestor] 10 mg PO DAILY 04/28/20 Primary Care Physician: Care Physician,No Primary [NON-STAFF] - Test Results: Test results from this visit will be discussed in further detail at your follow-up appointment, if applicable. Please Follow Up With: José Luis Perez DPM - patient can also see Elinor Temple NP next week as well. When: on 05/08 or 05/09 at [facility]. Please call [phone] to schedule appt
--- NOTE | 2020-05-01 16:15 | RAD_ITS ---
STUDY: X-RAY - RIGHT ANKLE REASON FOR EXAM: Female, 65 years old. post op ORIF right fibula TECHNIQUE: 3 view(s) of the ankle. COMPARISON: 04/30/2020 FINDINGS: Interval surgical fusion of the distal fibula. Fibular fracture now with normal alignment. Soft tissue swelling. Mortise is intact. RAD/Ankle min 3 Views IMPRESSION: Interval surgical fusion of the distal fibula. Fibular fracture now with normal alignment. Electronically Signed: Donn Jones MD at 21:58 EDT Tel , Service support ,
[2020-05-01] MEDS: HYDROcodone Bitartrate/Apap 5/325 Tablet PO (19:07)
[2020-05-01] MEDS: Gabapentin 300 MG Capsule PO (21:44)
[2020-05-01] MEDS: Acetaminophen 325 MG Tablet 650 MG PO (21:44)
[2020-05-01] MEDS: Ketorolac 15 MG/ML Vial IV (21:45)
[2020-05-02] VITALS (9 sets, daily range): BP systolic 117–143; BP diastolic 66–78; PULSE 77–90; RESP 16–18; TEMP 36.4–37.1; O2SAT 92–98; BMI 22.3
[2020-05-02] MEDS: Lactated Ringers 1,000 ML 100 ML IV (01:25)
[2020-05-02] MEDS: Cefazolin 2 GM in 0.9% Normal Saline 100 ML IV ×3 (05:06→21:21)
[2020-05-02] MEDS: HYDROcodone Bitartrate/Apap 5/325 Tablet PO ×5 (05:14→19:54)
[2020-05-02] MEDS: Enoxaparin 40 MG/0.4 ML Syringe SC (05:15)
[2020-05-02 06:02] LABS: Hematocrit 37.4 % (37-47); Hemoglobin 11.6 g/dL (12.0-15.0); Mean Corpuscular Volume 96.6 fL (81-99); Platelet Count 362 K/mm3 (150-450); RBC Distribution Width CV 14.9 % (11.6-14.6); RBC Distribution Width SD 51.3 fl (35.1-43.9); Red Blood Count 3.87 M/mm3 (4.2-5.4)
[2020-05-02 06:10] LABS: Anion Gap 5 (5-15); BUN 8 mg/dL (7-18); BUN/Creat Ratio 16.3 RATIO (10-20); Calcium,Total 8.6 mg/dL (8.5-10.1); Chloride 104 mmol/L (98-107); Creatinine, Serum 0.49 mg/dL (0.55-1.02); EST Glomerular Filtration Rate 133 mL/min (>60); Est Glom Filt Rate - Afr Amer 161 mL/min (>60); Estimated Creatinine Clearance 45.07 ml/min; Glucose 105 mg/dL (74-106); Potassium 3.6 mmol/L (3.5-5.1); Sodium Level 139 mmol/L (136-145)
--- NOTE | 2020-05-02 11:06 | CASEMGMT ---
Addendum entered by Sol Peña 05/02/20 15:12: SW received call from Sherrill with [facility] stating insurance wouldn't approve [facility]. SW back in to speak with pt. SW updated pt that [facility] has no beds available and insurance wouldn't approve [facility]. SW reviewed list of additional SNF that accept pt's insurance. SW explained benefits of going to SNF for short term rehabilitation. Pt agreeable to referral for [facility]. SW placed a call to Dina at [facility] and provided referral. SW faxed referral. Plan: SNF pending acceptance and pre-cert Addendum entered by Sol Peña 05/02/20 14:01: SW placed another call to Sherrill with [facility] and left message regarding referral. SW received call from Arielle in [facility] stating she has no beds available at this time. Original Note: Social Work Note SW updated that pt may be good candidate for [facility]. SW placed a call to Sherrill with [facility], left message asking if pt has qualifying diagnosis or if pt's insurance would approve [facility]. SW also placed a call to Arielle in [facility] and asked about bed availability. SW in to speak with pt. SW introduced self and role at [facility]. Pt is alert and orientated x3. Pt's daughter Estephania present in room. Pt gave this worker permission to speak to her in front of her guest. Pt states agreeable to [facility] or [facility] and states [facility] is first choice. SW explained that this worker needs to check on diagnosis and insurance for [facility]. Pt states if [facility] is not able to take her, she prefers [facility]. SW informed pt that this worker also has a call to TCU to determine if they have any beds available. Pt states that if [facility] or [facility] is not able to accept her, then she will return home with her sister. SW waiting for call back from [facility] and [facility]. Plan: TBD Sol Peña HORTICULTURE SUPERINTENDENT, ECOLOGIST TECHNICIAN
--- NOTE | 2020-05-02 12:34 | PN_ITS ---
<Michelle Jenkins - Last Filed: 05/02/20 12:43> Patient Problems: Active and Suspected Problems Multiple falls (Acute) Scalp laceration (Acute) Restless leg syndrome (Acute) Closed right fibular fracture (Acute) Subjective: Patient seen and examined. Pain well controlled. Patient reports improvement in restless leg syndrome. Blood pressure stable overnight. Patient agreeable to TCU or rehab if she is able to be accepted to either of those. Otherwise, if she is declined, she plans to live with her sister temporarily for further assistance. - Physical Exam Vitals/I&O's: Vital Signs Temp Pulse Resp BP Pulse Ox 98.7 F 90 18 143/67 H 98 05/02/20 08:23 05/02/20 09:19 05/02/20 08:23 05/02/20 08:23 05/02/20 09:00 Oxygen Flow Rate (L/min) 1 Oxygen Delivery Method Nasal Cannula Weight: 124 lb 8.979 oz Body Mass Index (BMI) 22.6 Intake and Output for Last 24 Hours 04/30/20 05/01/20 05/02/20 23:59 23:59 23:59 Intake Total 1020.75 / 1020.75 3003.33 / 3343.33 2053.33 / 2053.33 Output Total 700 / 700 850 / 1100 500 / 500 Balance 320.75 / 320.75 2153.33 / 2243.33 1553.33 / 1553.33 General: Alert, Oriented x3, Cooperative HEENT: Atraumatic, PERRLA, EOMI, Normocephalic Neck: Supple, No JVD, Negative Carotid Bruits Lungs: Clear to auscultation, Normal air movement Cardiovascular: Regular rate, No murmurs Abdomen: Bowel Sounds Present, Soft, Non Tender Extremities: No edema, Capillary Refill Less than 3 Seconds Skin: No rashes, No breakdown, - - Right postop dressing intact Musculoskeletal: No Tenderness to Palpation of Joints or Extremities Neurological: Cranial nerves II-XII grossly intact, Neuro grossly intact Psych/Mental Status: Normal Affect, Appropriate Microbiology Past 72 Hours 04/29/20 21:25 Stool Stool Occult Blood (CASANDRA) - Final Laboratory Results 04/28/20 14:50: Crossmatch See Detail 05/02/20 05:25: WBC 9.0, RBC 3.87 L, Hgb 11.6 L, Hct 37.4, MCV 96.6, MCH 30.0, MCHC 31.0 L, RDW Std Deviation 51.3 H, RDW Coeff of Cher 14.9 H, Plt Count 362, MPV 9.0 05/02/20 05:25: Sodium 139, Potassium 3.6, Chloride 104, Carbon Dioxide 30.0, Anion Gap 5, BUN 8, Creatinine 0.49 L, Estim Creat Clear Calc 45.07, Est GFR (MDRD) Af Amer 161, Est GFR (MDRD) Non-Af 133, BUN/Creatinine Ratio 16.3, Glucose 105, Calcium 8.6 Current Medications Acetaminophen (Tylenol) 650 mg PO Q6H PRN PRN PRN Reason: Pain Score 1-10/Temp > 100.7 F Last Admin: 05/01/20 21:44 Dose: 650 mg Documented by: Hydrocodone Bitart/Acetaminophen ([place] 5mg-325mg) 1 tablet PO Q4H PRN PRN PRN Reason: Pain Score 1-5/10 Last Admin: 05/02/20 09:31 Dose: 1 tablet Documented by: Enoxaparin Sodium (Lovenox) 40 mg SC DAILY@0600 [facility] Last Admin: 05/02/20 05:15 Dose: 40 mg Documented by: Gabapentin (Neurontin) 300 mg PO QHS [facility] Last Admin: 05/01/20 21:44 Dose: 300 mg Documented by: Cefazolin Sodium 2 gm/ Sodium (Chloride) 110 mls @ 150 mls/hr IV Q8 [facility] Last Infusion: 05/02/20 05:50 Dose: Infused Documented by: Lactated Ringer's () 1,000 mls @ 100 mls/hr IV .Q10H [facility] Last Infusion: 05/02/20 11:50 Dose: 15 mls/hr Documented by: Ketorolac Tromethamine (Toradol (Bkc)) 15 mg IV Q8H PRN PRN Reason: PAIN SCORE 1-10/10 Last Admin: 05/01/20 21:45 Dose: 15 mg Documented by: Morphine Sulfate () 1 mg IV Q2H PRN PRN PRN Reason: Pain Score 6-10/10 Pramipexole Dihydrochloride (Mirapex) 0.125 mg PO QHS [facility] Last Admin: 05/01/20 21:44 Dose: 0.125 mg Documented by: Sodium Chloride () 10 - 40 ml IV UD PRN PRN Reason: SALINE FLUSH Last Admin: 05/01/20 08:48 Dose: 10 ml Documented by: Medical Necessity - Tobacco Use Smoking Status: Current every day smoker Assessment/Plan All Active Problems Multiple falls (Acute) Scalp laceration (Acute) Restless leg syndrome (Acute) Closed right fibular fracture (Acute) 1. Hypotension-unclear etiology, now stable. Hold BP regimen. Echocardiogram unremarkable. 2. Acute anemia-patient's baseline hemoglobin unclear. Patient had prior iron studies as outpatient, suspect chronic anemia as well. Patient received 2 units PRBC for hemoglobin 7.7. Hemoglobin has since remained stable. Suspect prior lab low due to dilution. Patient received significant fluids secondary to #1. Trend CBC. Xarelto discontinued. Stool for occult blood negative. 3. Recurrent falls, lower extremity weakness- unclear etiology. Possibly due to #1. Patient reports her falls are related to severe restless leg syndrome. Lumbar x-ray unremarkable. PT/OT. Fall precautions. MRI of lumbar spine demonstrates multilevel degenerative changes. 4. Traumatic right fibular fracture, secondary to mechanical fall prior to admission-Dr. José Luis Perez consulted. Patient underwent open reduction with internal fixation of right fibular shaft fracture 05/01/2020. Follow-up with podiatry. 5. Hypertension-hold BP regimen given #1. Recommend continuing to hold at discharge. 6. Carotid stenosis- continue aspirin, statin. 7. Hyperlipidemia-continue statin. 8. Tobacco dependence-encouraged cessation. 9. Restless leg syndrome- worsened recently. Not previously on regimen. Continue gabapentin nightly which patient states has improved her symptoms. TSH, mag normal. DVT prophylaxis-Lovenox subcu Discharge planning: Plan for TCU versus rehab pending acceptance. If patient is not accepted to either of those, patient will discharge home to live with her sister temporarily with home health/PT services. This patient was seen by KAYLA Downs under the supervision of Dr. Prescott. <Bob Prescott - Last Filed: 05/02/20 14:34> - Physical Exam Vitals/I&O's: Vital Signs Temp Pulse Resp BP Pulse Ox 37.1 C 84 18 118/66 96 05/02/20 13:53 05/02/20 13:53 05/02/20 13:53 05/02/20 13:53 05/02/20 13:53 Oxygen Flow Rate (L/min) 2 Oxygen Delivery Method Nasal Cannula Weight: 56.5 kg Body Mass Index (BMI) 22.6 Intake and Output for Last 24 Hours 04/30/20 05/01/20 05/02/20 23:59 23:59 23:59 Intake Total 1020.75 / 1020.75 3003.33 / 3343.33 2053.33 / 2052.33 Output Total 700 / 700 850 / 1100 1150 / 1150 Balance 320.75 / 320.75 2153.33 / 2243.33 903.33 / 903.33 General: Alert, Cooperative HEENT: Atraumatic, Normocephalic Lungs: Clear to auscultation, Normal air movement Cardiovascular: Regular rate, No murmurs Abdomen: Bowel Sounds Present, Soft, Non Tender Skin: No rashes, No breakdown, - Microbiology Past 72 Hours 04/29/20 21:25 Stool Stool Occult Blood (CASANDRA) - Final Laboratory Results 04/28/20 14:50: Crossmatch See Detail 05/02/20 05:25: WBC 9.0, RBC 3.87 L, Hgb 11.6 L, Hct 37.4, MCV 96.6, MCH 30.0, MCHC 31.0 L, RDW Std Deviation 51.3 H, RDW Coeff of Cher 14.9 H, Plt Count 362, MPV 9.0 05/02/20 05:25: Sodium 139, Potassium 3.6, Chloride 104, Carbon Dioxide 30.0, Anion Gap 5, BUN 8, Creatinine 0.49 L, Estim Creat Clear Calc 45.07, Est GFR (MDRD) Af Amer 161, Est GFR (MDRD) Non-Af 133, BUN/Creatinine Ratio 16.3, Glucose 105, Calcium 8.6 Current Medications Acetaminophen (Tylenol) 650 mg PO Q6H PRN PRN PRN Reason: Pain Score 1-10/Temp > 100.7 F Last Admin: 05/01/20 21:44 Dose: 650 mg Documented by: Hydrocodone Bitart/Acetaminophen ([place] 5mg-325mg) 0 tablet PO Q4H PRN PRN PRN Reason: Pain Score 1-5/10 Last Admin: 05/02/20 13:47 Dose: 1 tablet Documented by: Enoxaparin Sodium (Lovenox) 40 mg SC DAILY@0600 [facility] Last Admin: 05/02/20 05:15 Dose: 40 mg Documented by: Gabapentin (Neurontin) 300 mg PO QHS [facility] Last Admin: 05/01/20 21:44 Dose: 300 mg Documented by: Cefazolin Sodium 2 gm/ Sodium (Chloride) 110 mls @ 150 mls/hr IV Q8 [facility] Last Admin: 05/02/20 13:30 Dose: 150 mls/hr Documented by: Lactated Ringer's () 1,000 mls @ 100 mls/hr IV .Q10H [facility] Last Infusion: 05/02/20 11:50 Dose: 15 mls/hr Documented by: Ketorolac Tromethamine (Toradol (Bkc)) 15 mg IV Q8H PRN PRN Reason: PAIN SCORE 1-10/10 Last Admin: 05/02/20 13:46 Dose: 15 mg Documented by: Morphine Sulfate () 1 mg IV Q2H PRN PRN PRN Reason: Pain Score 6-10/10 Pramipexole Dihydrochloride (Mirapex) 0.125 mg PO QHS [facility] Last Admin: 05/01/20 21:44 Dose: 0.125 mg Documented by: Sodium Chloride () 10 - 40 ml IV UD PRN PRN Reason: SALINE FLUSH Last Admin: 05/02/20 13:46 Dose: 10 ml Documented by: Assessment/Plan Patient seen and examined independently. Data reviewed. I agree with the above note by the nurse practitioner. 1. Hypertension: Currently stable. 2. Anemia: Hemoglobin stable. Status post 2 units packed red blood cells. 3. Right fibular fracture: Status post ORIF on 623. Inpatient E&M: [id number] Subs Hosp L2
--- NOTE | 2020-05-02 13:30 | PCM.PN.ORT ---
Patient Problems: Active and Suspected Problems Multiple falls (Acute) Scalp laceration (Acute) Restless leg syndrome (Acute) Closed right fibular fracture (Acute) Subjective: Patient seen at bedside resting comfortably. Patient admits to pain in her right ankle, but states that he has been tolerated with medications. Patient rates the pain as a 5 out of 10 at its worst. Patient has been icing and elevating as instructed. Patient denies any acute overnight events, and denies any acute complaints at this time. Currently, patient denies fever, chills, nausea, vomiting, shortness of breath, chest pain. Patient denies right calf pain. Patient admits to improvement in restless legs. Objective: Lower extremity physical exam focused on the right lower extremity: Dressing is clean, dry, intact to the right lower extremity with no evidence of dishevelment or strikethrough noted. Capillary fill time is less than 3 seconds to all digits of the right foot. Toes are warm and comparable to the contralateral lower extremity. Patient is able to freely move toes at this time with no evidence of pain. No pain upon palpation or compression of the right posterior calf. - Physical Exam Vitals/I&O's: Vital Signs Temp Pulse Resp BP Pulse Ox 98.7 F 90 18 143/67 H 98 05/02/20 08:23 05/02/20 09:19 05/02/20 08:23 05/02/20 08:23 05/02/20 09:00 Oxygen Flow Rate (L/min) 1 Oxygen Delivery Method Nasal Cannula Weight: 56.5 kg Body Mass Index (BMI) 22.6 Intake and Output for Last 24 Hours 04/30/20 05/01/20 05/02/20 23:59 23:59 23:59 Intake Total 1020.75 / 1020.75 3003.33 / 3343.33 2053.33 / 2053.33 Output Total 700 / 700 850 / 1100 1150 / 1150 Balance 320.75 / 320.75 2153.33 / 2243.33 903.33 / 903.33 General: Alert, Oriented x3, Cooperative, No apparent distress HEENT: Atraumatic, PERRLA Oral: Moist Mucosa Neck: Supple, No JVD Lungs: Clear to auscultation, Normal air movement, No rhonchi, No wheeze, No rales Cardiovascular: Regular rate, Regular Rhythm, Normal S1, Normal S2 Abdomen: Bowel Sounds Present, Soft, Non Tender, Non-Distended Extremities: Capillary Refill Less than 3 Seconds Neurological: Sensory exam intact to light touch and pain Psych/Mental Status: Alert and oriented to time, place, person, mood and affect Microbiology Past 72 Hours 04/29/20 21:25 Stool Stool Occult Blood (CASANDRA) - Final Laboratory Results 04/28/20 14:50: Crossmatch See Detail 05/02/20 05:25: WBC 9.0, RBC 3.87 L, Hgb 11.6 L, Hct 37.4, MCV 96.6, MCH 30.0, MCHC 31.0 L, RDW Std Deviation 51.3 H, RDW Coeff of Cher 14.9 H, Plt Count 362, MPV 9.0 05/02/20 05:25: Sodium 139, Potassium 3.6, Chloride 104, Carbon Dioxide 30.0, Anion Gap 5, BUN 8, Creatinine 0.49 L, Estim Creat Clear Calc 45.07, Est GFR (MDRD) Af Amer 161, Est GFR (MDRD) Non-Af 133, BUN/Creatinine Ratio 16.3, Glucose 105, Calcium 8.6 Current Medications Acetaminophen (Tylenol) 650 mg PO Q6H PRN PRN PRN Reason: Pain Score 1-10/Temp > 100.7 F Last Admin: 05/01/20 21:44 Dose: 650 mg Documented by: Hydrocodone Bitart/Acetaminophen ([place] 5mg-325mg) 1 tablet PO Q4H PRN PRN PRN Reason: Pain Score 1-5/10 Last Admin: 05/02/20 09:31 Dose: 1 tablet Documented by: Enoxaparin Sodium (Lovenox) 40 mg SC DAILY@0600 [facility] Last Admin: 05/02/20 05:15 Dose: 40 mg Documented by: Gabapentin (Neurontin) 300 mg PO QHS [facility] Last Admin: 05/01/20 21:44 Dose: 300 mg Documented by: Cefazolin Sodium 2 gm/ Sodium (Chloride) 110 mls @ 150 mls/hr IV Q8 [facility] Last Infusion: 05/02/20 05:50 Dose: Infused Documented by: Lactated Ringer's () 1,000 mls @ 100 mls/hr IV .Q10H [facility] Last Infusion: 05/02/20 11:50 Dose: 15 mls/hr Documented by: Ketorolac Tromethamine (Toradol (Bkc)) 15 mg IV Q8H PRN PRN Reason: PAIN SCORE 1-10/10 Last Admin: 05/01/20 21:45 Dose: 15 mg Documented by: Morphine Sulfate () 1 mg IV Q2H PRN PRN PRN Reason: Pain Score 6-10/10 Pramipexole Dihydrochloride (Mirapex) 0.125 mg PO QHS [facility] Last Admin: 05/01/20 21:44 Dose: 0.125 mg Documented by: Sodium Chloride () 10 - 40 ml IV UD PRN PRN Reason: SALINE FLUSH Last Admin: 05/01/20 08:48 Dose: 10 ml Documented by: Medical Necessity - Tobacco Use Smoking Status: Current every day smoker Assessment/Plan All Active Problems Multiple falls (Acute) Scalp laceration (Acute) Restless leg syndrome (Acute) Closed right fibular fracture (Acute) Assessment: This is a 65-year-old female 1 day status post right fibula open reduction with internal fixation. Plan: Patient chart reviewed and patient evaluated. Full discussion had with the patient about the patient's current clinical condition and operative intervention. I discussed with the patient at this time that would like her to keep the dressing clean, dry, intact. She is to not get the dressing wet and to not remove the dressing. I recommend continuation of ice around the right knee 20 minutes every hour as needed. I recommend continue elevation of the right foot above the level of heart as often as possible. I discussed with the patient the importance of remaining nonweightbearing to the right foot with assistive devices at this time. Patient displayed verbal understanding. I discussed with her the risks of placing weight on her right foot at this time. I would like the patient to continue IV antibiotics at this time, and will transition to oral antibiotics upon transfer to rehabilitation facility or discharged home. I recommend continuation of DVT prophylaxis, and will transition patient to oral medication upon transfer or discharge. I recommend continue pain medication management. I will leave 3 prescriptions in her chart tomorrow, 05/03 for pain management, antibiotics, and DVT prophylaxis. Patient will follow up with either myself or my nurse practitioner next week at the [place] [facility]. At this time, no further intervention by me. All the patient's questions were answered to her satisfaction and all of her concerns were addressed. Patient displayed verbal understanding to all written and oral instructions at this time. I recommend leaving the dressing clean, dry, intact until follow-up visitation. At this time, I will sign off on the patient and will see the patient on an outpatient basis. If there are any questions or concerns, please do not hesitate to contact me. Thank you very much for allowing me to take part in the care of your patient. Inpatient E&M: [id number] Subs Hosp L2
[2020-05-02] MEDS: 0.9% Saline Lock 10 ML Syringe IV ×2 (13:46→16:15)
[2020-05-02] MEDS: Ketorolac 15 MG/ML Vial IV (13:46)
[2020-05-02] MEDS: Morphine 2 MG/ML Syringe 1 MG IV (16:15)
--- NOTE | 2020-05-02 16:19 | NURSING ---
1608 Dr Georgi Perez paged.[phone] Dr Cramer paged. pt very painful. restless, leg elevated on pillows. pt states it squeezing, has been elevated but elevated. 1625 This nurse just spoke with Dr Prescott him to come and assess pt, nurse suspects compartment syndrome. Pain meds are not touching her pain. He said ok. 1627 Dr Georgi Perez paged again.[phone] Perez, ordered to remove drsg to the 2nd drsg, which was done, she got some relief but not completely so he ordered to remove the 2nd ama wrap which was one by Dr. Prescott, he also checked her pedal pulse with doppler and it was easily detected. Splint was applied again loosely to protect foot and give it support. Pt is more relaxed now. leg remains elevated on 3 pillows. Ice was on leg earlier.
[2020-05-02] MEDS: Gabapentin 300 MG Capsule PO (22:00)
[2020-05-02] MEDS: Pramipexole Di-HCl 0.125 MG Tablet PO (22:00)
[2020-05-03] VITALS (7 sets, daily range): BP systolic 109–143; BP diastolic 62–79; PULSE 82–95; RESP 18–20; TEMP 36.8–37.2; O2SAT 85–97
[2020-05-03] MEDS: HYDROcodone Bitartrate/Apap 5/325 Tablet PO ×5 (01:04→20:14)
[2020-05-03] MEDS: Cefazolin 2 GM in 0.9% Normal Saline 100 ML IV ×3 (05:43→21:58)
[2020-05-03] MEDS: Enoxaparin 40 MG/0.4 ML Syringe SC (05:46)
--- NOTE | 2020-05-03 09:16 | CASEMGMT ---
Social Work Note AMMY received message from Dina at [facility] stating they are able to accept pt but states pt will need to be in isolation for 14 days and in those 14 days pt will not be able to smoke. AMMY updated pt that she will be in isolation for 14 days and not be able to smoke. Pt states that's fine. AMMY placed a call to Dina at [facility] and updated her. Dina states she will get pre-cert submitted. AMMY updated Dina that pt is medically ready for discharge once pre-cert is obtained. 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
--- NOTE | 2020-05-03 11:52 | PCM.PN.HOSP ---
Patient Problems: Active and Suspected Problems Multiple falls (Acute) Scalp laceration (Acute) Restless leg syndrome (Acute) Closed right fibular fracture (Acute) Reason for Visit: fibular fxr Subjective: Pain controlled. Plan is to go to SNF now upon DC. Vitals/I&O's: Vital Signs Temp Pulse Resp BP Pulse Ox 37.0 C 86 18 128/79 H 97 05/03/20 05:40 05/03/20 05:40 05/03/20 05:40 05/03/20 05:40 05/03/20 05:40 Oxygen Flow Rate (L/min) 1 Oxygen Delivery Method Nasal Cannula Weight: 56.5 kg Body Mass Index (BMI) 22.6 Intake and Output for Last 24 Hours 05/01/20 05/02/20 05/03/20 23:59 23:59 23:59 Intake Total 3003.33 / 3343.33 2673.83 / 2673.83 724.5 / 724.5 Output Total 850 / 1100 1700 / 1700 900 / 900 Balance 2153.33 / 2243.33 973.83 / 973.83 -175.5 / -175.5 General: Alert, No apparent distress HEENT: Atraumatic, Normocephalic Oral: Moist Mucosa, No Gingival or Mucosal Lesions/ Ulcerations Neck: No Nodes, Thyroid Normal Size and Texture Lungs: Clear to auscultation, Normal air movement, No rhonchi, No wheeze, No rales Cardiovascular: Regular rate, Regular Rhythm, Normal S1, Normal S2 Abdomen: Bowel Sounds Present, Soft, Non Tender, Non-Distended, No Hepato-splenomegaly Extremities: No edema, No Calf Tenderness Skin: No rashes, No breakdown Psych/Mental Status: Normal Affect, Appropriate Current Medications Acetaminophen (Tylenol) 650 mg PO Q6H PRN PRN PRN Reason: Pain Score 1-10/Temp > 100.7 F Last Admin: 05/01/20 21:44 Dose: 650 mg Documented by: Hydrocodone Bitart/Acetaminophen ([place] 5mg-325mg) 0 tablet PO Q4H PRN PRN PRN Reason: Pain Score 1-5/10 Last Admin: 05/03/20 10:59 Dose: 2 tablet Documented by: Enoxaparin Sodium (Lovenox) 40 mg SC DAILY@0600 [facility] Last Admin: 05/03/20 05:46 Dose: 40 mg Documented by: Gabapentin (Neurontin) 300 mg PO QHS [facility] Last Admin: 05/02/20 22:00 Dose: 300 mg Documented by: Cefazolin Sodium 2 gm/ Sodium (Chloride) 110 mls @ 150 mls/hr IV Q8 [facility] Last Infusion: 05/03/20 06:27 Dose: Infused Documented by: Sodium Chloride () 250 mls @ 15 mls/hr IV .[id number] PRN PRN Reason: Saline Flush Last Infusion: 05/03/20 06:27 Dose: 15 mls/hr Documented by: Sodium Chloride () 250 mls @ 15 mls/hr IV .[id number] PRN PRN Reason: Additional IVPB Infusion Ketorolac Tromethamine (Toradol (Bkc)) 15 mg IV Q8H PRN PRN Reason: PAIN SCORE 1-10/10 Last Admin: 05/02/20 13:46 Dose: 15 mg Documented by: Morphine Sulfate () 1 mg IV Q2H PRN PRN PRN Reason: Pain Score 6-10/10 Last Admin: 05/02/20 16:15 Dose: 1 mg Documented by: Pramipexole Dihydrochloride (Mirapex) 0.125 mg PO QHS [facility] Last Admin: 05/02/20 22:00 Dose: 0.125 mg Documented by: Sodium Chloride () 10 - 40 ml IV UD PRN PRN Reason: SALINE FLUSH Last Admin: 05/02/20 16:15 Dose: 10 ml Documented by: Medical Necessity - Tobacco Use Smoking Status: Current every day smoker Assessment/Plan All Active Problems Multiple falls (Acute) Scalp laceration (Acute) Restless leg syndrome (Acute) Closed right fibular fracture (Acute) 1. Hypertension: Currently stable. 2. Anemia: Hemoglobin stable. Status post 2 units packed red blood cells. 3. Right fibular fracture: Status post ORIF on 05/01. Pain improved after loosening wraps around ankle. No evidence of compartment syndrome. 4. Nocturnal hypoxia: dropped to 85% around 0050. Currently stable on 1 liter NC. Consider outpt PSG to eval for JIM. 5. VTE prophylaxis: LMWH. Would continue while non-weight bearing. Inpatient E&M: [id number] [facility] Hosp L2
--- NOTE | 2020-05-03 15:19 | PN.ORTHO_ITS ---
Patient Problems: Active and Suspected Problems Multiple falls (Acute) Scalp laceration (Acute) Restless leg syndrome (Acute) Closed right fibular fracture (Acute) Subjective: Patient seen at bedside resting comfortably. Patient admits to significant improvement in pain since loosening of the dressing of the right lower extremit y. Last evening, patient experienced increased pain. Due to concerns for compartment syndrome, the dressings were loosened of the right lower extremity. Since then, patient states that her pain is significantly improved. Patient denies any other acute complaints at this time, and is feeling much better. Currently, patient denies fever, chills, nausea, vomiting, shortness of breath, chest pain. Patient denies right calf pain. Objective: Right lower extremity exam: Inner dressing of the right foot and ankle is clean, dry, intact. Posterior splint is affixed to the right lower extremity with Leoncio bandages, in a loose fashion. Posterior splint is not providing stability at this time. Capillary fill time is less than 3 seconds all digits of the right foot. Digits are warm and comparable to the contralateral side. Light touch sensation is intact to the digits of the right foot when compared to the contralateral side. Right foot and ankle appear in a rectus position underneath the tibia. No evidence of gross shifting noted. - Physical Exam Vitals/I&O's: Vital Signs Temp Pulse Resp BP Pulse Ox 98.3 F 86 20 H 120/71 94 05/03/20 15:00 05/03/20 15:00 05/03/20 15:00 05/03/20 15:00 05/03/20 15:00 Oxygen Flow Rate (L/min) 1 Oxygen Delivery Method Nasal Cannula Weight: 56.5 kg Body Mass Index (BMI) 22.6 Intake and Output for Last 24 Hours 05/01/20 05/02/20 05/03/20 23:59 23:59 23:59 Intake Total 3003.33 / 3343.33 2673.83 / 2673.83 1361.25 / 1361.25 Output Total 850 / 1100 1700 / 1700 1500 / 1500 Balance 2153.33 / 2243.33 973.83 / 973.83 -138.75 / -138.75 General: Alert, Oriented x3, Cooperative, No apparent distress HEENT: Atraumatic, PERRLA Oral: Moist Mucosa Neck: Supple, No JVD Lungs: Clear to auscultation, Normal air movement, No rhonchi, No wheeze Cardiovascular: Regular rate, Regular Rhythm, Normal S1, Normal S2 Abdomen: Bowel Sounds Present, Soft, Non Tender, Non-Distended Extremities: Capillary Refill Less than 3 Seconds, No Calf Tenderness Skin: No rashes, No breakdown Neurological: Sensory exam intact to light touch and pain Psych/Mental Status: Alert and oriented to time, place, person, mood and affect Current Medications Acetaminophen (Tylenol) 650 mg PO Q6H PRN PRN PRN Reason: Pain Score 1-10/Temp > 100.7 F Last Admin: 05/01/20 21:44 Dose: 650 mg Documented by: Hydrocodone Bitart/Acetaminophen ([place] 5mg-325mg) 0 tablet PO Q4H PRN PRN PRN Reason: Pain Score 1-5/10 Last Admin: 05/03/20 14:56 Dose: 2 tablet Documented by: Enoxaparin Sodium (Lovenox) 40 mg SC DAILY@0600 [facility] Last Admin: 05/03/20 05:46 Dose: 40 mg Documented by: Gabapentin (Neurontin) 300 mg PO QHS [facility] Last Admin: 05/02/20 22:00 Dose: 300 mg Documented by: Cefazolin Sodium 2 gm/ Sodium (Chloride) 110 mls @ 150 mls/hr IV Q8 [facility] Last Infusion: 05/03/20 14:20 Dose: Infused Documented by: Sodium Chloride () 250 mls @ 15 mls/hr IV .[id number] PRN PRN Reason: Saline Flush Last Infusion: 05/03/20 14:20 Dose: 15 mls/hr Documented by: Sodium Chloride () 250 mls @ 15 mls/hr IV .[id number] PRN PRN Reason: Additional IVPB Infusion Ketorolac Tromethamine (Toradol (Bkc)) 15 mg IV Q8H PRN PRN Reason: PAIN SCORE 1-10/10 Last Admin: 05/02/20 13:46 Dose: 15 mg Documented by: Morphine Sulfate () 1 mg IV Q2H PRN PRN PRN Reason: Pain Score 6-10/10 Last Admin: 05/02/20 16:15 Dose: 1 mg Documented by: Pramipexole Dihydrochloride (Mirapex) 0.125 mg PO QHS [facility] Last Admin: 05/02/20 22:00 Dose: 0.125 mg Documented by: Sodium Chloride () 10 - 40 ml IV UD PRN PRN Reason: SALINE FLUSH Last Admin: 05/02/20 16:15 Dose: 10 ml Documented by: Medical Necessity - Tobacco Use Smoking Status: Current every day smoker Assessment/Plan All Active Problems Multiple falls (Acute) Scalp laceration (Acute) Restless leg syndrome (Acute) Closed right fibular fracture (Acute) Assessment: This is a 65-year-old female 2 days status post right fibula open reduction with internal fixation. Plan: Patient chart reviewed and patient evaluated. Full discussion had with the patient about the patient's current clinical condi tion and operative intervention. I discussed with the patient at this time that I would need to reapply a more stable dressing on the right lower extremity, and I will make sure that the dressing is loose. Patient is agreeable to this. At this time, cast padding was wrapped for the metatarsal heads extending proximally to level just distal to the tibial tuberosity. The posterior splint was reapplied to the right lower extremity and held utilizing Leoncio bandages. Neurovascular status was assessed at the end of the application and deemed intact to the right lower extremity. Patient states that she is tolerating this well, and does not feel that it it is too tight and is not experiencing pain. I recommend continuation of ice around the right knee 20 minutes every hour as needed. I recommend continue elevation of the right foot above the level of heart as often as possible. I discussed with the patient the importance of remaining nonweightbearing to the right foot with assistive devices at this time. Patient displayed verbal understanding. I discussed with her the risks of placing weight on her right foot at this time. I would like the patient to continue IV antibiotics at this time, and will transition to oral antibiotics upon transfer to rehabilitation facility or discharged home. I recommend continuation of DVT prophylaxis, and will transition patient to oral medication upon transfer or discharge. I recommend continue pain medication management. Prescription for doxycycline, xarelto and percocet left in chart to begin upon discharge from inpatient. Patient will follow up with either myself or my nurse practitioner next week at the [place] [facility]. At this time, no further intervention by me. All the patient's questions were answered to her satisfaction and all of her concerns were addressed. Patient displayed verbal understanding to all written and oral instructions at this time. I recommend leaving the dressing clean, dry, intact until follow-up visitation. Outer dressings may need to be removed and reapplied lightly pending patient's pain level. At this time, I will sign off on the patient and will see the patient on an outpatient basis. If there are any questions or concerns, please do not hesitate to contact me. Thank you very much for allowing me to take part in the care of your patient.
[2020-05-03] MEDS: Pramipexole Di-HCl 0.125 MG Tablet PO (22:00)
[2020-05-03] MEDS: Gabapentin 300 MG Capsule PO (22:00)
[2020-05-04] MEDS: HYDROcodone Bitartrate/Apap 5/325 Tablet PO ×2 (02:50→12:39)
[2020-05-04 02:52] VITALS: BP 141/71; PULSE 79; RESP 18; TEMP 36.6; O2SAT 93
[2020-05-04] MEDS: Cefazolin 2 GM in 0.9% Normal Saline 100 ML IV ×2 (06:13→15:33)
[2020-05-04] MEDS: Enoxaparin 40 MG/0.4 ML Syringe SC (06:15)
--- NOTE | 2020-05-04 07:26 | PN.ORTHO_ITS ---
Patient Problems: Active and Suspected Problems Multiple falls (Acute) Scalp laceration (Acute) Restless leg syndrome (Acute) Closed right fibular fracture (Acute) Subjective: Patient seen at bedside resting comfortably. Patient admits to improved pain of right lower extremity at this time. Posterior splint is clean, dry, intact and held with loose Leoncio bandages. Patient denies any acute complaints at this time. Currently, patient denies fever, chills, nausea, vomiting, shortness of breath, chest pain. Patient denies right calf pain. No acute events reported overnight by nursing staff. Objective: Lower extremity physical exam: Dressing is clean, dry, intact to the right lower extremity. Leoncio bandages are loosened around the posterior splint. Patient is not complaining of any pain at this time. Capillary fill time is less than 3 seconds to all digits. Gross and protective sensation are intact to the digits of the right foot. Neurovascular status deemed intact to the right foot at this time. No pain in right calf upon palpation or compression. Foot and ankle appear rectus underneath the tibia. - Physical Exam Vitals/I&O's: Vital Signs Temp Pulse Resp BP Pulse Ox 98 F 79 18 141/71 H 93 05/04/20 02:52 05/04/20 02:52 05/04/20 02:52 05/04/20 02:52 05/04/20 02:52 Oxygen Flow Rate (L/min) 1 Oxygen Delivery Method Nasal Cannula Weight: 52.6 kg Body Mass Index (BMI) 22.6 Intake and Output for Last 24 Hours 05/02/20 05/03/20 05/04/20 23:59 23:59 23:59 Intake Total 2673.83 / 2673.83 2767.50 / 2767.50 1113 / 1113 Output Total 1700 / 1700 3300 / 3300 1700 / 1700 Balance 973.83 / 973.83 -532.50 / -532.50 -587 / -587 General: Alert, Oriented x3, Cooperative, No apparent distress HEENT: Atraumatic, PERRLA Oral: Moist Mucosa Neck: Supple, No JVD Lungs: Clear to auscultation, Normal air movement Cardiovascular: Regular rate, Regular Rhythm, Normal S1, Normal S2 Abdomen: Bowel Sounds Present, Soft, Non Tender Extremities: Capillary Refill Less than 3 Seconds Skin: No rashes, No breakdown Musculoskeletal: Tenderness - Upon palpation and compression of right ankle Neurological: Sensory exam intact to light touch and pain Psych/Mental Status: Alert and oriented to time, place, person, mood and affect STUDY: X-RAY - RIGHT ANKLE REASON FOR EXAM: Female, 65 years old. post op ORIF right fibula TECHNIQUE: 3 view(s) of the ankle. COMPARISON: 04/30/2020 FINDINGS: Interval surgical fusion of the distal fibula. Fibular fracture now with normal alignment. Soft tissue swelling. Mortise is intact. RAD/Ankle min 3 Views IMPRESSION: Interval surgical fusion of the distal fibula. Fibular fracture now with normal alignment. Electronically Signed: Donn Jones MD at 21:58 EDT Tel , Service support , Current Medications Acetaminophen (Tylenol) 650 mg PO Q6H PRN PRN PRN Reason: Pain Score 1-10/Temp > 100.7 F Last Admin: 05/01/20 21:44 Dose: 650 mg Documented by: Hydrocodone Bitart/Acetaminophen ([place] 5mg-325mg) 0 tablet PO Q4H PRN PRN PRN Reason: Pain Score 1-5/10 Last Admin: 05/04/20 02:50 Dose: 2 tablet Documented by: Enoxaparin Sodium (Lovenox) 40 mg SC DAILY@0600 [facility] Last Admin: 05/04/20 06:15 Dose: 40 mg Documented by: Gabapentin (Neurontin) 300 mg PO QHS [facility] Last Admin: 05/03/20 22:00 Dose: 300 mg Documented by: Cefazolin Sodium 2 gm/ Sodium (Chloride) 110 mls @ 150 mls/hr IV Q8 [facility] Last Admin: 05/04/20 06:13 Dose: 150 mls/hr Documented by: Sodium Chloride () 250 mls @ 15 mls/hr IV .[id number] PRN PRN Reason: Saline Flush Last Infusion: 05/04/20 06:14 Dose: 0 mls/hr Documented by: Sodium Chloride () 250 mls @ 15 mls/hr IV .[id number] PRN PRN Reason: Additional IVPB Infusion Morphine Sulfate () 1 mg IV Q2H PRN PRN PRN Reason: Pain Score 6-10/10 Last Admin: 05/02/20 16:15 Dose: 1 mg Documented by: Pramipexole Dihydrochloride (Mirapex) 0.125 mg PO QHS [facility] Last Admin: 05/03/20 22:00 Dose: 0.125 mg Documented by: Sodium Chloride () 10 - 40 ml IV UD PRN PRN Reason: SALINE FLUSH Last Admin: 05/02/20 16:15 Dose: 10 ml Documented by: Medical Necessity - Tobacco Use Smoking Status: Current every day smoker Assessment/Plan All Active Problems Multiple falls (Acute) Scalp laceration (Acute) Restless leg syndrome (Acute) Closed right fibular fracture (Acute) Assessment: This is a 65-year-old female 3 days status post right fibula open reduction with internal fixation. Plan: Patient chart reviewed and patient evaluated. Full discussion had with the patient about the patient's current clinical condition and operative intervention. I recommend keeping dressing clean, dry and intact unless increase in pain. LEONCIO bandages can then be loosened if necessary. I recommend continuation of ice around the right knee 20 minutes every hour as needed. I recommend continue elevation of the right foot above the level of heart as often as possible. I discussed with the patient the importance of remaining nonweightbearing to the right foot with assistive devices at this time. Patient displayed verbal und erstanding. I discussed with her the risks of placing weight on her right foot at this time. I would like the patient to continue IV antibiotics at this time, and will transition to oral antibiotics upon transfer to rehabilitation facility or discharged home. I recommend continuation of DVT prophylaxis, and will transition patient to oral medication upon transfer or discharge. I recommend continue pain medication management. Prescription for doxycycline, xarelto and percocet left in chart to begin upon discharge from inpatient. Patient will follow up with either myself or my nurse practitioner next week at the [place] [facility]. Patient's daughter contacted to schedule appointment At this time, no further intervention by me. All the patient's questions were answered to her satisfaction and all of her concerns were addressed. Patient displayed verbal understanding to all written and oral instructions at this time. I recommend leaving the dressing clean, dry, intact until follow-up visitation. Outer dressings may need to be removed and reapplied lightly pending patient's pain level. At this time, we will next see the patient on an outpatient basis. If there are any questions or concerns, please do not hesitate to contact me. Thank you very much for allowing me to take part in the care of your patient. Inpatient E&M: [id number] Subs Hosp L2
[2020-05-04 08:02] VITALS: O2SAT 95
[2020-05-04 08:46] VITALS: BP 140/74; PULSE 86; RESP 18; TEMP 36.6; O2SAT 93
--- NOTE | 2020-05-04 10:32 | CASEMGMT ---
Addendum entered by Sol Peña 05/04/20 14:10: AMMY placed a call to Dina at [facility]. Dina states she just called pt's insurance and pre-cert is still pending. Addendum entered by Sol Peña 05/04/20 13:07: AMMY faxed updated clinicals to [facility]. Original Note: Social Work Note AMMY placed a call to Dina at [facility]. Dina states she hasn't heard anything regarding pre-cert and will be calling pt's insurance today at noon if she doesn't hear anything before then. AMMY updated Dina that pt is medically ready for discharge once pre-cert is obtained. Plan: [facility] pending pre-cert Sol Peña SOAP TENDER, PRINCIPAL SECURITY ARCHITECT
--- NOTE | 2020-05-04 10:35 | DCINST_ITS ---
- Discharge Diagnoses Current Active Problems: Current Active and Chronic Problems Multiple falls (Acute) Scalp laceration (Acute) Restless leg syndrome (Acute) Closed right fibular fracture (Acute) You will use the following diet at home:: No restrictions Your food should be the consistency of: Regular Discharge Activity: May Not Drive, May Not Shower, Use Walker, Use Crutches Weight Bearing Status: No weight bearing Keep extremity elevated above heart level: Right Leg Additional Activity Instructions:: 1. Keep the dressing clean, dry, intact to right leg. Do not get dressing wet. Do not remove dressing. If get dressing wet, call office for further instruction. 2. Elevate right foot above level of heart as much as possible until follow-up appointment. 3. Ice around right kne e 20 minutes on, 20 minutes off, every hour while needed. 4. Do not place any weight on right foot. No walking or standing on right foot. Use crutches/walker/wheelchair for assistance. 5. Take doxycycline (antibiotic) twice a day as instructed. 6. Take Xarelto 5 mg once a day as instructed. 7. Take Percocet (pain medication) as instructed and as needed for pain. Call your doctor if your incision/area has: Sudden Increased Bleeding, Increased Pain/ Swelling Call your doctor if you observe: Fever of 101 or Higher, Inability to have a micha wel movement, Shortness of breath, Dizziness, Chest pain, Prolonged hiccoughing, Increased palpitations (irregular heartbeat), Calf discomfort, Uncontrolled pain Suture Line Care: Avoid Pulling/Pushing, Avoid Pinching/Bending Cleanse incision/area with: Keep Dressing Clean & Dry Allergies/Adverse Reactions: Allergies No Known Allergies Allergy (Verified 04/28/20 04:52) Medications to take at Discharge Aspirin [Aspirin, Baby] 81 mg PO DAILY@0800 04/28/20 Denosumab [Prolia] 60 mg SQ X1 04/28/20 Lisinopril [Zestril] 40 mg PO DAILY 04/28/20 Rivaroxaban [Xarelto] 2.5 mg PO BID 04/28/20 Rosuvastatin Calcium [Crestor] 10 mg PO DAILY 04/28/20 Acetaminophen [Tylenol Tablet] 650 mg PO Q6H PRN PRN tablet 05/04/20 Gabapentin [Neurontin] 300 mg PO QHS capsule 06/26/20 Hydrocodone Bitart/Apap 5-325 [[place] 5/325] 1 tab PO Q4H PRN PRN 3 Days #12 tab 05/04/20 The following prescriptions were given: Hydrocodone Bitart/Apap 5-325 [[place] 5/325] 1 tab PO Q4H PRN PRN 3 Days #12 tab PRN Reason: Pain Score 1-5/10 Prescription Printed Primary Care Physician: Care Physician,No Primary [NON-STAFF] - Test Results: Test results from this visit will be discussed in further detail at your follow- up appointment, if applicable. Please Follow Up With: José Luis Perez DPM - patient can also see Elinor Temple NP next week as well. When: on 05/08 or 05/09 at [facility]. Please call [phone] to schedule appt Proposed Discharge Date: 05/04/20
--- NOTE | 2020-05-04 13:03 | PCM.PN.HOSP ---
Patient Problems: Active and Suspected Problems Multiple falls (Acute) Scalp laceration (Acute) Restless leg syndrome (Acute) Closed right fibular fracture (Acute) Reason for Visit: fibular fracture Subjective: no new complaints. feeling well. Vitals/I&O's: Vital Signs Temp Pulse Resp BP Pulse Ox 36.6 C 86 18 140/74 H 93 05/04/20 08:46 05/04/20 08:46 05/04/20 08:46 05/04/20 08:46 05/04/20 08:46 Oxygen Flow Rate (L/min) 1 Oxygen Delivery Method Room Air Weight: 52.6 kg Body Mass Index (BMI) 22.6 Intake and Output for Last 24 Hours 05/02/20 05/03/20 05/04/20 23:59 23:59 23:59 Intake Total 2673.83 / 2673.83 2767.50 / 2767.50 1223 / 1223 Output Total 1700 / 1700 3300 / 3300 1700 / 1700 Balance 973.83 / 973.83 -532.50 / -532.50 -477 / -477 General: Alert, No apparent distress HEENT: Atraumatic, Normocephalic Oral: Moist Mucosa, No Gingival or Mucosal Lesions/ Ulcerations Neck: No Nodes, Thyroid Normal Size and Texture Lungs: Clear to auscultation, Normal air movement, No rhonchi, No wheeze, No rales Cardiovascular: Regular rate, Regular Rhythm, Normal S1, Normal S2, No murmurs Abdomen: Bowel Sounds Present, Soft, Non Tender, Non-Distended, No Hepato-splenomegaly Extremities: No edema, No Calf Tenderness Current Medications Acetaminophen (Tylenol) 650 mg PO Q6H PRN PRN PRN Reason: Pain Score 1-10/Temp > 100.7 F Last Admin: 05/01/20 21:44 Dose: 650 mg Documented by: Hydrocodone Bitart/Acetaminophen ([place] 5mg-325mg) 0 tablet PO Q4H PRN PRN PRN Reason: Pain Score 1-5/10 Last Admin: 05/04/20 12:39 Dose: 2 tablet Documented by: Aspirin (Aspirin, Baby) 81 mg PO DAILY@0800 [facility] Atorvastatin Calcium (Lipitor) 20 mg PO QHS [facility] Gabapentin (Neurontin) 300 mg PO QHS [facility] Last Admin: 05/03/20 22:00 Dose: 300 mg Documented by: Cefazolin Sodium 2 gm/ Sodium (Chloride) 110 mls @ 150 mls/hr IV Q8 [facility] Last Infusion: 05/04/20 06:57 Dose: Infused Documented by: Sodium Chloride () 250 mls @ 15 mls/hr IV .[id number] PRN PRN Reason: Saline Flush Last Infusion: 05/04/20 06:57 Dose: 15 mls/hr Documented by: Sodium Chloride () 250 mls @ 15 mls/hr IV .[id number] PRN PRN Reason: Additional IVPB Infusion Lisinopril (Zestril) 40 mg PO DAILY [facility] Morphine Sulfate () 1 mg IV Q2H PRN PRN PRN Reason: Pain Score 6-10/10 Last Admin: 05/02/20 16:15 Dose: 1 mg Documented by: Pramipexole Dihydrochloride (Mirapex) 0.125 mg PO QHS [facility] Last Admin: 05/03/20 22:00 Dose: 0.125 mg Documented by: Rivaroxaban (Xarelto) 2.5 mg PO BID [facility] Sodium Chloride () 10 - 40 ml IV UD PRN PRN Reason: SALINE FLUSH Last Admin: 05/02/20 16:15 Dose: 10 ml Documented by: Medical Necessity - Tobacco Use Smoking Status: Current every day smoker Assessment/Plan All Active Problems Multiple falls (Acute) Scalp laceration (Acute) Restless leg syndrome (Acute) Closed right fibular fracture (Acute) 1. Hypertension: Currently stable. 2. Anemia: Hemoglobin stable. Status post 2 units packed red blood cells. 3. Right fibular fracture: Status post ORIF on 05/01. Pain improved after loosening wraps around ankle. No evidence of compartment syndrome. 4. Nocturnal hypoxia: dropped to 85% around 0050. Currently stable on 1 liter NC. Consider outpt PSG to eval for JIM. 5. VTE prophylaxis: LMWH. Would continue while non-weight bearing. 6. Disposition: awaiting on precert for placement. Inpatient E&M: [id number] [facility] Hosp L2
[2020-05-04 15:31] VITALS: BP 157/80; PULSE 87; RESP 18; TEMP 36.7; O2SAT 97
--- NOTE | 2020-05-04 16:04 | CASEMGMT ---
Social Work Note SW in to speak with pt. AMMY updated pt that pre-cert is still pending. SW explained that insurance works till about 5:00pm so insurance could still get back to this worker today but if insurance doesn't get back to this worker today pt will likely be at [facility] through weekend. Pt states well can I just go home, I want to go home. SW explained options of home with HHC or home with outpatient therapy. Pt states well I would need to call my daughter to see what she wants me to do. Pt asked this worker to call her daughter Estephania to explain different options. SW placed a call to pt's daughter Estephania and updated her on above information, that pre-cert is still pending, pt may get denied. Estephania states she would prefer outpatient therapy for pt. SW asked Estephania if she wants pt to wait until pre-cert is obtained or just plan on discharge home today and Estephania states that is up to pt. Estephania states to make sure pt knows though that she will be busy tomorrow. AMMY back in to speak with pt. AMMY updated pt that if pt returns home Estephania prefers outpatient therapy for pt. SW updated pt that Estephania mentioned that she would be busy tomorrow. Pt states well I can just go to my sister's home for and tomorrow and then to my daughters on Thursday. Pt agreeable to home with outpatient therapy. SW informed pt that this worker can get script for outpatient therapy and she can take the script to anywhere she wants to get outpatient therapy scheduled. AMMY asked pt about Walker. Pt states she has walker at home and pt's sister has a walker and wheelchair at her home. Pt also states that she ordered a knee scooter through [employer]. Pt denied additional needs or concerns. AMMY updated physician that plan is now home with outpatient therapy. Physician signed outpatient therapy script. AMMY back in to speak with pt. SW provided pt with outpatient therapy script. Copy placed on pt's chart. AMMY placed a call to [facility] and provided update that pt is now going home and to disregard referral. Plan: Home with outpatient therapy Sol Peña DIGITAL ACCOUNT SUPERVISOR, CAR TESTER
--- NOTE | 2020-05-04 16:04 | PCM.DC.SUM ---
Discharge Date and Diagnosis - Problem List Patient Problems: Active and Suspected Problems Multiple falls (Acute) Scalp laceration (Acute) Restless leg syndrome (Acute) Closed right fibular fracture (Acute) Date of Admission: 04/28/20 Date of Discharge: 05/04/20 - Primary Discharge Diagnosis Acute Problems: Active Problems Multiple falls (Acute) Scalp laceration (Acute) Restless leg syndrome (Acute) Closed right fibular fracture (Acute) 1. Right fibular fracture: Status post ORIF on 05/01. Pain improved after loosening wraps around ankle. No evidence of compartment syndrome. 2. acute blood loss anemia 3. Head laceration: reji placed on 04/28. remove reji in 3-5 days. - Secondary Discharge Diagnosis Chronic Problems: Chronic Problems Hypertension (Chronic) Carotid stenosis (Chronic) Hospital Course and Treatment Imaging Results: Clinical Impression(s) from Imaging Studies Brain CT 04/28/20 04:48 IMPRESSION: There is no acute intracranial pathology. Mild soft tissue injury.. Electronically Signed: Steffany Uribe MD at 5:34 EDT , Service support , Lumbar Spine X-Ray 04/28/20 18:40 IMPRESSION: 1. Mild degenerative changes. No acute findings. Electronically Signed: Dina Nelson MD at 19:20 EDT Tel , Service support , Lumbar Spine MRI 04/30/20 08:30 IMPRESSION: Multilevel degenerative changes, as described above. Electronically Signed: Sorin Rivera MD at 15:16 EDT Tel , Service support , Ankle X-Ray 04/30/20 12:17 IMPRESSION: Acute, minimally displaced, multi fragmented fracture of the distal fibula with soft tissue swelling Electronically Signed: Bladimir Ramos MD at 12:56 EDT , Service support , Chest X-Ray 05/01/20 06:00 IMPRESSION: Right lower lobe pneumonia. Small right pleural effusion. Electronically Signed: Jillian Chairez, at 6:24 EDT Tel , Service support , Ankle X-Ray 05/01/20 12:59 IMPRESSION: ORIF of a distal fibular fracture. Alignment at the fracture site is anatomic. Electronically Signed: Bladimir Ramos MD at 16:17 EDT , Service support , Ankle X-Ray 05/01/20 16:15 IMPRESSION: Interval surgical fusion of the distal fibula. Fibular fracture now with normal alignment. Electronically Signed: Donn Jones MD at 21:58 EDT Tel , Service support , Perez: Operations: - - Open reduction with internal fixation of right fibular shaft fracture Summary of Care Provided: The patient is a 65 year old F presents with falls.. She sustained a head laceration that was closed with reji in ED and a distal right fibular fracture. Patient was unable to manage at home and presented to [facility]. Patient underwent ORIF for fibular fracture on 05/01. Course was complicated by anemia, where she received 2 units of PRBCs. Hg thereafter remained stable. On 05/02 she developed severe pain in her right ankle. Splint was removed and bandages loosened, afterwards, she felt much better. Plan for the patient to go to a fpc facility but still waiting on precertification. Today, at around 1600, patient stated that she would go stay with her sister and then have outpatient therapy. [] Patient Problems: Active and Suspected Problems Multiple falls (Acute) Scalp laceration (Acute) Restless leg syndrome (Acute) Closed right fibular fracture (Acute) - Physical Exam Vitals/I&O's: Vital Signs Temp Pulse Resp BP Pulse Ox 36.7 C 87 18 157/80 H 97 05/04/20 15:31 05/04/20 15:31 05/04/20 15:31 05/04/20 15:31 05/04/20 15:31 Oxygen Flow Rate (L/min) 1 Oxygen Delivery Method Room Air Weight: 52.6 kg Body Mass Index (BMI) 22.6 Intake and Output for Last 24 Hours 05/02/20 05/03/20 05/04/20 23:59 23:59 23:59 Intake Total 2673.83 / 2673.83 2767.50 / 2767.50 1623 / 1623 Output Total 1700 / 1700 3300 / 3300 3000 / 3000 Balance 973.83 / 973.83 -532.50 / -532.50 -1377 / -1377 Current Medications Acetaminophen (Tylenol) 650 mg PO Q6H PRN PRN PRN Reason: Pain Score 1-10/Temp > 100.7 F Last Admin: 05/01/20 21:44 Dose: 650 mg Documented by: Hydrocodone Bitart/Acetaminophen (G[place]wood 5mg-325mg) 0 tablet PO Q4H PRN PRN PRN Reason: Pain Score 1-5/10 Last Admin: 05/04/20 12:39 Dose: 2 tablet Documented by: Aspirin (Aspirin, Baby) 81 mg PO DAILY@0800 [facility] Atorvastatin Calcium (Lipitor) 20 mg PO QHS [facility] Gabapentin (Neurontin) 300 mg PO QHS [facility] Last Admin: 05/03/20 22:00 Dose: 300 mg Documented by: Cefazolin Sodium 2 gm/ Sodium (Chloride) 110 mls @ 150 mls/hr IV Q8 [facility] Last Admin: 05/04/20 15:33 Dose: 150 mls/hr Documented by: Sodium Chloride () 250 mls @ 15 mls/hr IV .[id number] PRN PRN Reason: Saline Flush Last Infusion: 05/04/20 06:57 Dose: 15 mls/hr Documented by: Sodium Chloride () 250 mls @ 15 mls/hr IV .[id number] PRN PRN Reason: Additional IVPB Infusion Lisinopril (Zestril) 40 mg PO DAILY [facility] Morphine Sulfate () 1 mg IV Q2H PRN PRN PRN Reason: Pain Score 6-10/10 Last Admin: 05/02/20 16:15 Dose: 1 mg Documented by: Pramipexole Dihydrochloride (Mirapex) 0.125 mg PO QHS [facility] Last Admin: 05/03/20 22:00 Dose: 0.125 mg Documented by: Rivaroxaban (Xarelto) 2.5 mg PO BID [facility] Sodium Chloride () 10 - 40 ml IV UD PRN PRN Reason: SALINE FLUSH Last Admin: 05/02/20 16:15 Dose: 10 ml Documented by: Discharge Diet: No Restrictions Discharge Activity: May Not Drive, May Not Shower, Use Walker, Use Crutches Weight Bearing Status: No weight bearing Keep extremity elevated above heart level: Right Leg Additional Activity Instructions:: 1. Keep the dressing clean, dry, intact to right leg. Do not get dressing wet. Do not remove dressing. If get dressing wet, call office for further instruction. 2. Elevate right foot above level of heart as much as possible until follow-up appointment. 3. Ice around right knee 20 minutes on, 20 minutes off, every hour while needed. 4. Do not place any weight on right foot. No walking or standing on right foot. Use crutches/walker/wheelchair for assistance. 5. Take doxycycline (antibiotic) twice a day as instructed. 6. Take Xarelto 5 mg once a day as instructed. 7. Take Percocet (pain medication) as instructed and as needed for pain. Call your doctor if your incision/area has: Sudden Increased Bleeding, Increased Pain/ Swelling Call your doctor if you observe: Fever of 101 or Higher, Inability to have a bowel movement, Shortness of breath, Dizziness, Chest pain, Prolonged hiccoughing, Increased palpitations (irregular heartbeat), Calf discomfort, Uncontrolled pain Suture Line Care: Avoid Pulling/Pushing, Avoid Pinching/Bending Cleanse incision/area with: Keep Dressing Clean & Dry Home Medications: Medications to take at Discharge Aspirin [Aspirin, Baby] 81 mg PO DAILY@0800 04/28/20 Denosumab [Prolia] 60 mg SQ X1 04/28/20 Lisinopril [Zestril] 40 mg PO DAILY 04/28/20 Rivaroxaban [Xarelto] 2.5 mg PO BID 04/28/20 Rosuvastatin Calcium [Crestor] 10 mg PO DAILY 04/28/20 Acetaminophen [Tylenol Tablet] 650 mg PO Q6H PRN PRN tab 05/04/20 Gabapentin [Neurontin] 300 mg PO QHS cap 05/04/20 Hydrocodone Bitart/Apap 5-325 [G[place]wood 5/325] 1 tab PO Q4H PRN PRN 3 Days #12 tab 05/04/20 Following Prescrptions Were Given to Patient: Hydrocodone Bitart/Apap 5-325 [G[place]wood 5/325] 1 tab PO Q4H PRN PRN 3 Days #12 tab PRN Reason: Pain Score 1-5/10 Prescription Printed Primary Care Physician: Care Physician,No Primary [NON-STAFF] - Please Follow Up With: José Luis Perez DPM - patient can also see Elinor Temple NP next week as well. When: on 05/08 or 05/09 at [place] [facility]. Please call [phone] to schedule appt Disposition: Home Minutes spent on discharge:: 36 Patient Condition:: Fair Medical Necessity - Tobacco Use Smoking Status: Current every day smoker Meaningful Use Info Meaningful Use Diagnoses (Choose all that apply): None applicable Inpatient E&M: 28264 Disch Hosp
== END 2020-05-04 18:17 | disposition home or self-care (01) | DRG 982 ==
LOC: ED 06:35 → MS3 07:20 → ICU 15:23 → MS3 04-29 11:45
PROVIDERS: Anesthesiology; Nurse Practitioner Family; Podiatrist Foot & Ankle Surgery; Admitting Provider Internal Medicine; Emergency Provider Emergency Medicine; PCP Nurse Practitioner Family
PROC: 0QSG04Z Reposition Right Tibia with Internal Fixation Device, Open Approach (ICD-10-PCS; principal; 2020-05-01 12:15)
DX: I95.2 Hypotension due to drugs (principal); D62 Acute posthemorrhagic anemia; T40.4X5A Adverse effect of other synthetic narcotics, initial encounter; T42.4X5A Adverse effect of benzodiazepines, initial encounter; Y92.238 Other place in hospital as the place of occurrence of the external cause; M54.5 Low back pain; E78.5 Hyperlipidemia, unspecified; G25.81 Restless legs syndrome; I10 Essential (primary) hypertension; D64.9 Anemia, unspecified; I65.29 Occlusion and stenosis of unspecified carotid artery; M81.0 Age-related osteoporosis without current pathological fracture; R29.6 Repeated falls; S01.01XA Laceration without foreign body of scalp, initial encounter; F17.210 Nicotine dependence, cigarettes, uncomplicated; R09.02 Hypoxemia; S82.451A Displaced comminuted fracture of shaft of right fibula, initial encounter for closed fracture; W18.30XA Fall on same level, unspecified, initial encounter; Z79.01 Long term (current) use of anticoagulants; Z79.82 Long term (current) use of aspirin; Z79.899 Other long term (current) drug therapy
CPT/HCPCS: 36415; 70450; 71045; 72100; 72148; 73610; 76000; 78452; 80048; 81001; 82274; 82306; 83605; 83735; 84100; 84443; 84484; 85014; 85018; 85025; 85027; 85610; 85730; 86850; 86900; 86901; 86920; 86922; 87635; 93005; 93017; 93306; 97110; 97116; 97162; 97166; 97530; 97535; 99285; 99406; A9500; C1713; G2023; J7030; J7040; J7050; J7120; P9016; A4216; J2310; J2405; J2785; J3490; U0003

== ENCOUNTER 2020-08-08 09:30 | Outpatient (RCR) | payer MEDICARE, SELFPAY ==
[2020-05-01 11:12] VITALS: BMI 22.6
[2020-08-01 09:56] VITALS: BP 117/82; PULSE 94; RESP 18; TEMP 36.8; BMI 22.6
[2020-08-01 10:50] VITALS: BP 137/83; PULSE 83; RESP 18
--- NOTE | 2020-08-01 11:20 | PCM.WC.HP ---
(1) Non-healing surgical wound Status: Acute Current Visit: Yes Code(s): T81.89XA - Other complications of procedures, not elsewhere classified, initial encounter (2) Closed right fibular fracture Status: Acute Current Visit: No Qualifiers: Code(s): S82.401A - Unspecified fracture of shaft of right fibula, initial encounter for closed fracture (3) Multiple falls Status: Acute Current Visit: No Code(s): R29.6 - Repeated falls (4) Restless leg syndrome Status: Acute Current Visit: No Code(s): G25.81 - Restless legs syndrome (5) Wound dehiscence, surgical Status: Acute Current Visit: Yes Code(s): T81.31XA - Disruption of external operation (surgical) wound, not elsewhere classified, initial encounter History of Present Illness Date of Service: 08/01/20 Chief Complaint: Follow-up on dehisced surgical wound of right lateral lower leg History of Wound: 65-year-old white female that had surgery for a fractured ankle back in April 2020 had screws and and metal placed in the wound. Patient then dehisced and her orthopedic surgeon has been using Silvadene cream to close her. He she is also on doxycycline and he referred her to the wound clinic. Patient states she suffers from restless legs and she gets up in the night and falls frequently. Past Medical History Past Medical History: Chronic Problems Hypertension (Chronic) Carotid stenosis (Chronic) Past Medical History: Fractured right ankle with hardware. Dehisced surgical wound of the right ankle. Chronic nonhealing surgical wound Surgical History: - - Carpal tunnel surgery, right lumpectomy, surgery. Allergies/Adverse Reactions: Allergies No Known Allergies Allergy (Verified 04/28/20 04:52) Home Medications: Ambulatory Orders Medication Instructions Recorded Aspirin [Aspirin, Baby] 81 mg PO DAILY@0800 04/28/20 Denosumab [Prolia] 60 mg SQ X1 04/28/20 Rosuvastatin Calcium [Crestor] 10 mg PO DAILY 04/28/20 Acetaminophen [Tylenol Tablet] 650 mg PO Q6H PRN PRN tab 05/04/20 Gabapentin [Neurontin] 300 mg PO QHS cap 05/04/20 - Family History Maternal Diabetes Paternal - - Does not know paternal medical history. Denies known paternal cardiac history. Smoking Status: Current every day smoker Review of Systems Constitutional: Denies: Chills, Fever Eyes: Denies: Blurred vision, Drainage, Pain HEENT: Denies: Difficulty Hearing, Difficulty Swallowing, Sore Throat, Visual Changes Cardiovascular: Denies: Chest Pain, Palpitations, Syncope Respiratory: Denies: Cough, Shortness of Breath Gastrointestinal: Denies: Abdominal Pain, Nausea, Vomiting Genitourinary: Denies: Dysuria, Frequency Musculoskeletal: Denies: Joint Pain, Muscle pain Skin: Reports: Wounds - Nonhealing dehisced surgical wound right lateral ankle. Denies: Jaundice, Rash Neurological: Denies: Balance problems, Change in Speech, Difficulty swallowing, Focal weakness Psychiatric: Denies: Anxiety, Depression Endocrine: Denies: Change in Body Habitus Hematologic/ Lymphatic: Denies: Adenopathy - Physical Exam Vital Signs Temp Pulse Resp BP 98.2 F 83 18 137/83 H 08/01/20 09:56 08/01/20 10:50 08/01/20 10:50 08/01/20 10:50 General: Oriented x3, Cooperative, Well developed HEENT: Atraumatic, PERRLA Oral: Moist Mucosa Neck: Supple, No JVD Lungs: Clear to auscultation, Normal air movement Cardiovascular: Regular rate, Regular Rhythm Abdomen: Bowel Sounds Present, Soft, Non Tender, No Hepato-splenomegaly Extremities: No clubbing, No edema Skin: Ulcer/ Wound - Dehisced surgical wound of the left lateral ankle from fracture Wound Measurements and Assessment WC - Nurse 1 - General Ulcer Measurement Start: 08/01/20 09:50 Freq: Status: Active Protocol: Activity Type Activity Date Activity User E-Sign Co-Sign Detail Recorded Client Recorded Date Recorded By Document 08/01/20 09:56 MD [id number] 08/01/20 10:14 MD 08/01/20 09:56 Wound Center Nurse 1 [Ulcer Assessment] #1 Right lateral lower ext -Current Size (cm) - Length 1.7 -Current Size (cm) - Width 0.4 -Current Size (cm) - Depth 0.2 -Total Square Cm 0.68 -Exudate Amt Small -Exudate Type Serosanguineous -Wound Margin Flat & Intact -Granulation Amt Large (67-100%) -Granulation Quality Pale,[place] -Necrosis Amt Small (1-33%) -Necrotic Tissue Type Adherent Slough -Texture (Norma-wound Skin Appearance) Assessed -Moisture (Norma-wound Skin Appearance Assessed ) -Color (Norma-wound Skin Appearance) Assessed -Temperature (Norma-wound Skin No Abnormality Appearance) (Pt Warm) -Tenderness on Palpation (Norma-wound No Skin Appearance) -Ulcer Cleansing Rinsed/ Irrigated with Saline -Foul Odor after Cleansing No -Anesthetic Used 4% Lidocaine Solution [Edema Assessment] -Right Calf (cm) 30.4 -Right Ankle (cm) 18.2 -Left Calf (cm) 29.6 -Left Ankle (cm) 17.5 WC - Nurse 2 - General Ulcer CM Notes Start: 08/01/20 09:50 Freq: Status: Active Protocol: Activity Type Activity Date Activity User E-Sign Co-Sign Detail Recorded Client Recorded Date Recorded By Document 08/01/20 10:34 MW [id number] 08/01/20 10:42 MW 08/01/20 10:34 Wound Center Nurse 2 [Procedure/Treatment] #1 Right lateral lower ext -Time 10:37 -Correct Patient Yes -Correct Side, Site, Position Yes -Correct Procedure Yes -Procedure Performed Yes -Type of Procedure Debridement -Clinical Debridement Subcutaneous -Tissue Removed Subcutaneous -Post Debridement (cm) - Length 2.2 -Post Debridement (cm) - Width 0.4 -Post Debridement (cm) - Depth 0.4 -Total Square (Post) (cm) 0.88 -Area of Debridement (cm) - Length 2.2 -Area of Debridement (cm) - Width 0.4 -Total Square (Area) (cm) 0.88 -Tunneling No -Undermining/Tunneling No -Circular Undermining No -Wound/Ulcer Outcome Not Healed -Ulcer Cleansing Rinsed/ Irrigated with Saline -Foul Odor after Cleansing No -Bioengineered Tissue No -Bleeding Controlled with Pressure -Offloading No -Treatment Response Procedure Tolerated Well -Debridement - Subq, 1st 20sq cm Yes [See Physician Procedure note for Specifics] Pain Scale: 0-10 Numeric [Pain] -Is Patient Pain Free? Yes - Nurse 3 - General Ulcer D/C NN Start: 08/01/20 09:50 Freq: Status: Active Protocol: Activity Type Activity Date Activity User E-Sign Co-Sign Detail Recorded Client Recorded Date Recorded By Document 08/01/20 10:50 RB [id number] 08/01/20 10:51 RB 08/01/20 10:50 Wound Care Nurse 3 [Wound Dressing] #1 Right lateral lower ext -Ulcer Cleansing Rinsed/ Irrigated with Saline -Primary Dressing Applied Fibracol Plus 4x4,NonAdherent Contact Layer -Primary Dressing Covered/Secured Dry Gauze & with Roll Gauze, Secured with Tape -Fibracol Plus 4x4 1 [Post Procedure Tolerated] -Treatment Response Procedure Tolerated Well Vital Signs [Pulse] -Pulse Rate (60-100 beats/min) 83 -Pulse Location Monitor [Respirations] -Respiratory Rate (12-18 breaths/min) 18 -Respiratory rate source Observation [Blood Pressure] -Blood Pressure (90/60-120/80 mm Hg) 137/83 H -Blood Pressure Mean (mm Hg) 101 -Source Monitor -Position Semi-Fowlers -Blood Pressure Location Left Arm Pain Scale: 0-10 Numeric [Pain] -Is Patient Pain Free? Yes Teaching: Wound Center [Wound Center Education] (Items with an * have Printed Materials Available- Please identify what is given to patient under the Teaching materials given to patient and caregiver Section. Dressing Your Wound -Person Taught Patient -Teaching Method Discussion, Demonstration -Response to teaching Verbalize understanding WC - Visit Discharge [Visit Discharge Information] -Discharge Condition Stable -Ambulatory Status Ambulatory -Transportation Private Auto -Medication Reconcilliation completed No & provided to patient/care provider -Clinical Summary of Care Provided Yes Musculoskeletal: No Tenderness to Palpation of Joints or Extremities Lymphatic: No Cervical, Supraclavicular, or Inguinal Adenopathy Neurological: Cranial nerves II-XII grossly intact, Neuro grossly intact Psych/Mental Status: Normal Affect, Appropriate Debridement Note Post-Debridement Measurements/Treatment WC - Nurse 2 - General Ulcer CM Notes Start: 08/01/20 09:50 Freq: Status: Active Protocol: Activity Type Activity Date Activity User E-Sign Co-Sign Detail Recorded Client Recorded Date Recorded By Document 08/01/20 10:34 MW [id number] 08/01/20 10:42 MW 08/01/20 10:34 Wound Center Nurse 2 #1 Right lateral lower ext -Time 10:37 -Correct Patient Yes -Correct Side, Site, Position Yes -Correct Procedure Yes -Procedure Performed Yes -Type of Procedure Debridement -Clinical Debridement Subcutaneous -Tissue Removed Subcutaneous -Post Debridement (cm) - Length 2.2 -Post Debridement (cm) - Width 0.4 -Post Debridement (cm) - Depth 0.4 -Total Square (Post) (cm) 0.88 -Area of Debridement (cm) - Length 2.2 -Area of Debridement (cm) - Width 0.4 -Total Square (Area) (cm) 0.88 -Tunneling No -Undermining/Tunneling No -Circular Undermining No -Wound/Ulcer Outcome Not Healed -Ulcer Cleansing Rinsed/ Irrigated with Saline -Foul Odor after Cleansing No -Bioengineered Tissue No -Bleeding Controlled with Pressure -Offloading No -Treatment Response Procedure Tolerated Well -Debridement - Subq, 1st 20sq cm Yes Pain Scale: 0-10 Numeric Is Patient Pain Free? Yes - Nurse 3 - General Ulcer D/C NN Start: 08/01/20 09:50 Freq: Status: Active Protocol: Activity Type Activity Date Activity User E-Sign Co-Sign Detail Recorded Client Recorded Date Recorded By Document 08/01/20 10:50 MARIA ELENA [id number] 08/01/20 10:51 MARIA ELENA 08/01/20 10:50 Wound Care Nurse 3 #1 Right lateral lower ext -Ulcer Cleansing Rinsed/ Irrigated with Saline -Primary Dressing Applied Fibracol Plus 4x4,NonAdherent Contact Layer -Primary Dressing Covered/Secured with Dry Gauze & Roll Gauze, Secured with Tape -Fibracol Plus 4x4 1 Treatment Response Procedure Tolerated Well Vital Signs Pulse Rate (60-100 beats/min) 83 Pulse Location Monitor Respiratory Rate (12-18 breaths/min) 18 Respiratory rate source Observation Blood Pressure (90/60-120/80 mm Hg) 137/83 H Blood Pressure Mean (mm Hg) 101 Source Monitor Position Semi-Fowlers Blood Pressure Location Left Arm Pain Scale: 0-10 Numeric Is Patient Pain Free? Yes Teaching: Wound Center Dressing Your Wound -Person Taught Patient -Teaching Method Discussion, Demonstration -Response to teaching Verbalize understanding WC - Visit Discharge Discharge Condition Stable Ambulatory Status Ambulatory Transportation Private Auto Medication Reconcilliation completed & No provided to patient/care provider Clinical Summary of Care Provided Yes Wound debrided: Left lateral ankle Type of Debridement: Excisional debridement Anesthesia Used: 5% Lidocaine Gel Depth: Down to and including healthy tissue, in the subcutaneous layer Percentage of wound debrided: 100 Instrument Used: 5mm curette Tissue Removed: Devitalized tissue fibrin Severity: Limited To Skin Breakdown Amount of bleeding with debridement: Mild Bleeding Controlled with: Compression and gauze Patient tolerated procedure well Assessment/Plan Active Problems Non-healing surgical wound (Acute) Wound dehiscence, surgical (Acute) Assessment: Fracture left ankle with hardware. Nonhealing dehisced surgical wound left lateral ankle. Chronic nonhealing surgical wound Plan: Wash leg with antibacterial soap. Apply Fibracol to wound base moistened cover with Adaptic gauze and tape. Double layer Tubigrip. Follow-up in 1 week. We will get results of arterial brachial and venous study from [facility]
[2020-08-08 09:45] VITALS: RESP 16; TEMP 35.1; BMI 22.6
[2020-08-08 10:52] VITALS: BP 149/84; PULSE 84; RESP 16
--- NOTE | 2020-08-08 12:13 | PN.PCM_ITS ---
(1) Non-healing surgical wound Status: Acute Current Visit: Yes Code(s): T81.89XA - Other complications of procedures, not elsewhere classified, initial encounter (2) Closed right fibular fracture Status: Acute Current Visit: Yes Qualifiers: Code(s): S82.401A - Unspecified fracture of shaft of right fibula, initial encounter for closed fracture (3) Multiple falls Status: Acute Current Visit: Yes Code(s): R29.6 - Repeated falls (4) Restless leg syndrome Status: Acute Current Visit: Yes Code(s): G25.81 - Restless legs syndrome (5) Wound dehiscence, surgical Status: Acute Current Visit: Yes Qualifiers: Encounter type: subsequent encounter Qualified Code(s): T81.31XD - D isruption of external operation (surgical) wound, not elsewhere classified, subsequent encounter Code(s): T81.31XA - Disruption of external operation (surgical) wound, not elsewhere classified, initial encounter (6) PAD (peripheral artery disease) Status: Acute Current Visit: Yes Code(s): I73.9 - Peripheral vascular disease, unspecified Type of Wound Date of Service: 08/08/20 Chief Complaint: Follow-up on dehisced surgical wound of right lateral lower leg History of Wound: 65-year-old white female that had surgery for a fractured ankle back in April 2020 had screws and and metal placed in the wound. Patient then dehisced and her orthopedic surgeon has been using Silvadene cream to close her. He she is also on doxycycline and he referred her to the wound clinic. Patient states she suffers from restless legs and she gets up in the night and falls frequently. Did receive her arterial brachial study and it shows she has severe PAD Progress of Wound: Today patient was complaining of severe burning from compression on wound and intolerant to the Adaptic material. We anesthesized the wound with 1% plain lidocaine he tolerated well. Was able to aggressively debride the area of slough. Patient has some undermining from 6-12 on the lateral side of the wound bed. We will try Fibracol again and moistened with moistened gauze over top no compression. We will apply for epi-fix as a skin sub-to help us move this along faster. - Physical Exam Vital Signs Temp Pulse Resp BP 95.1 F L 84 16 149/84 H 08/08/20 09:45 08/08/20 10:52 08/08/20 10:52 08/08/20 10:52 General: Oriented x3, Cooperative, Well developed HEENT: Atraumatic, PERRLA Oral: Moist Mucosa Neck: Supple, No JVD Lungs: Clear to auscultation, Normal air movement Cardiovascular: Regular rate, Regular Rhythm Abdomen: Bowel Sounds Present, Soft, Non Tender, No Hepato-splenomegaly Extremities: No clubbing, No edema Skin: Ulcer/ Wound - Distal lateral ankle right from surgery that dehisced on the wound from a closed fracture Wound Measurements and Assessment - Nurse 1 - General Ulcer Measurement Start: 08/01/20 09:50 Freq: Status: Active Protocol: Activity Type Activity Date Activity User E-Sign Co-Sign Detail Recorded Client Recorded Date Recorded By Document 08/08/20 09:45 [id number] 08/08/20 09:51 08/08/20 09:45 Wound Center Nurse 1 [Ulcer Assessment] #1 Right lateral lower ext -Combined with other wound No -Current Size (cm) - Length 1.9 -Current Size (cm) - Width 0.4 -Current Size (cm) - Depth 0.2 -Total Square Cm 0.76 -Photo Taken No -Epithelialization None Present -Tunneling No -Undermining/Tunneling No -Circular Undermining No -Exudate Amt Small -Exudate Type Serosanguineous -Wound Margin Distinct, Outline Attached -Granulation Amt Large (67-100%) -Granulation Quality Red -Slough/Fibrin Yes -Necrosis Amt None Present (0 %) -Necrotic Tissue Type Adherent Slough -Structure Exposed N/A -Texture (Norma-wound Skin Appearance) No Abnormality, Assessed -Moisture (Norma-wound Skin Appearance No Abnormality, ) Assessed -Color (Norma-wound Skin Appearance) No Abnormality, Assessed -Temperature (Norma-wound Skin No Abnormality Appearance) (Pt Warm) -Tenderness on Palpation (Norma-wound Yes Skin Appearance) -Ulcer Cleansing Rinsed/ Irrigated with Saline -Foul Odor after Cleansing No -Anesthetic Used 4% Lidocaine Solution [Edema Assessment] -Lower Limb Edema Present No -Right Calf (cm) 30 -Right Ankle (cm) 19 WC - Nurse 2 - General Ulcer CM Notes Start: 08/01/20 09:50 Freq: Status: Active Protocol: Activity Type Activity Date Activity User E-Sign Co-Sign Detail Recorded Client Recorded Date Recorded By Document 08/08/20 10:32 MW [id number] 08/08/20 10:43 MW 08/08/20 10:32 Wound Center Nurse 2 [Procedure/Treatment] #1 Right lateral lower ext -Time 10:34 -Correct Patient Yes -Correct Side, Site, Position Yes -Correct Procedure Yes -Procedure Performed Yes -Type of Procedure Debridement -Clinical Debridement Subcutaneous -Tissue Removed Subcutaneous -Post Debridement (cm) - Length 2.0 -Post Debridement (cm) - Width 0.5 -Post Debridement (cm) - Depth 0.3 -Total Square (Post) (cm) 1.00 -Area of Debridement (cm) - Length 2.0 -Area of Debridement (cm) - Width 0.3 -Total Square (Area) (cm) 0.60 -Tunneling No -Undermining/Tunneling No -Undermining/Tunneling Starts (O' 6 clock) -Undermining/Tunneling Ends (O'clock) 12 -Maximum Distance (cm) 0.3 -Circular Undermining No -Wound/Ulcer Outcome Not Healed -Ulcer Cleansing Rinsed/ Irrigated with Saline -Foul Odor after Cleansing No -Bioengineered Tissue No -Injectable Lidocaine (%) 2 -Lidocaine (ml) 5 -Bleeding Controlled with Pressure -Offloading No -Treatment Response Procedure Tolerated Well -Debridement - Subq, 1st 20sq cm Yes [See Physician Procedure note for Specifics] Pain Scale: 0-10 Numeric [Pain] -Is Patient Pain Free? Yes WC - Nurse 3 - General Ulcer D/C NN Start: 08/01/20 09:50 Freq: Status: Active Protocol: Activity Type Activity Date Activity User E-Sign Co-Sign Detail Recorded Client Recorded Date Recorded By Document 08/08/20 10:52 CS [id number] 08/08/20 10:53 CS 08/08/20 10:52 Wound Care Nurse 3 [Wound Dressing] #1 Right lateral lower ext -Ulcer Cleansing Not Cleansed -Foul Odor after Cleansing No -Negative Pressure Wound Therapy N/A -Primary Dressing Applied Fibracol Plus 4x4 -Primary Dressing Covered/Secured Dry Gauze & with Roll Gauze, Secured with Tape -Fibracol Plus 4x4 1 Vital Signs [Pulse] -Pulse Rate (60-100 beats/min) 84 [Respirations] -Respiratory Rate (12-18 breaths/min) 16 -Respiratory rate source Observation [Blood Pressure] -Blood Pressure (90/60-120/80 mm Hg) 149/84 H -Blood Pressure Mean (mm Hg) 105 Pain Scale: 0-10 Numeric [Pain] -Is Patient Pain Free? Yes WC - Visit Discharge [Visit Discharge Information] -Discharge Condition Stable -Ambulatory Status Ambulatory -Transportation Private Auto -Accompanied by self -Medication Reconcilliation completed Yes & provided to patient/care provider -Clinical Summary of Care Provided Yes Musculoskeletal: No Tenderness to Palpation of Joints or Extremities Lymphatic: No Cervical, Supraclavicular, or Inguinal Adenopathy Neurological: Cranial nerves II-XII grossly intact, Neuro grossly intact Psych/Mental Status: Normal Affect, Appropriate Debridement Note Post-Debridement Measurements/Treatment WC - Nurse 2 - General Ulcer CM Notes Start: 08/01/20 09:50 Freq: Status: Active Protocol: Activity Type Activity Date Activity User E-Sign Co-Sign Detail Recorded Client Recorded Date Recorded By Document 08/01/20 10:34 MW [id number] 08/01/20 10:42 MW Document 08/08/20 10:32 MW [id number] 08/08/20 10:43 MW 08/01/20 08/08/20 10:34 10:32 Wound Center Nurse 2 #1 Right lateral lower ext -Time 10:37 10:34 -Correct Patient Yes Yes -Correct Side, Site, Position Yes Yes -Correct Procedure Yes Yes -Procedure Performed Yes Yes -Type of Procedure Debridement Debridement -Clinical Debridement Subcutaneous Subcutaneous -Tissue Removed Subcutaneous Subcutaneous -Post Debridement (cm) - Length 2.2 2.0 -Post Debridement (cm) - Width 0.4 0.5 -Post Debridement (cm) - Depth 0.4 0.3 -Total Square (Post) (cm) 0.88 1.00 -Area of Debridement (cm) - Length 2.2 2.0 -Area of Debridement (cm) - Width 0.4 0.3 -Total Square (Area) (cm) 0.88 0.60 -Tunneling No No -Undermining/Tunneling No No -Undermining/Tunneling Starts (O'clock 6 ) -Undermining/Tunneling Ends (O'clock) 12 -Maximum Distance (cm) 0.3 -Circular Undermining No No -Wound/Ulcer Outcome Not Healed Not Healed -Ulcer Cleansing Rinsed/ Rinsed/ Irrigated with Irrigated with Saline Saline -Foul Odor after Cleansing No No -Bioengineered Tissue No No -Injectable Lidocaine (%) 2 -Lidocaine (ml) 5 -Bleeding Controlled with Pressure Pressure -Offloading No No -Treatment Response Procedure Procedure Tolerated Well Tolerated Well -Debridement - Subq, 1st 20sq cm Yes Yes Pain Scale: 0-10 Numeric Is Patient Pain Free? Yes Yes WC - Nurse 3 - General Ulcer D/C NN Start: 08/01/20 09:50 Freq: Status: Active Protocol: Activity Type Activity Date Activity User E-Sign Co-Sign Detail Recorded Client Recorded Date Recorded By Document 08/01/20 10:50 RB [id number] 08/01/20 10:51 RB Document 08/08/20 10:52 CS [id number] 08/08/20 10:53 CS 08/01/20 08/08/20 10:50 10:52 Wound Care Nurse 3 #1 Right lateral lower ext -Ulcer Cleansing Rinsed/ Not Cleansed Irrigated with Saline -Foul Odor after Cleansing No -Negative Pressure Wound Therapy N/A -Primary Dressing Applied Fibracol Plus Fibracol Plus 4x4,NonAdherent 4x4 Contact Layer -Primary Dressing Covered/Secured with Dry Gauze & Dry Gauze & Roll Gauze, Roll Gauze, Secured with Secured with Tape Tape -Fibracol Plus 4x4 1 1 Right -Tubular Bandage Single Layer -Size of Tubigrip Used Size D -Size D ($) 1 Treatment Response Procedure Tolerated Well Vital Signs Pulse Rate (60-100 beats/min) 83 84 Pulse Location Monitor Respiratory Rate (12-18 breaths/min) 18 16 Respiratory rate source Observation Observation Blood Pressure (90/60-120/80 mm Hg) 137/83 H 149/84 H Blood Pressure Mean (mm Hg) 101 105 Source Monitor Position Semi-Fowlers Blood Pressure Location Left Arm Pain Scale: 0-10 Numeric Is Patient Pain Free? Yes Yes Teaching: Wound Center Dressing Your Wound -Person Taught Patient -Teaching Method Discussion, Demonstration -Response to teaching Verbalize understanding WC - Visit Discharge Discharge Condition Stable Stable Ambulatory Status Ambulatory Ambulatory Transportation Private Auto Private Auto Accompanied by self Medication Reconcilliation completed & No Yes provided to patient/care provider Clinical Summary of Care Provided Yes Yes Wound debrided: Lateral ankle dehisced wound Type of Debridement: Excisional debridement Anesthesia Used: 5% Lidocaine Gel, - - 1% lidocaine Depth: Down to and including healthy tissue, in the subcutaneous layer Percentage of wound debrided: 100 Instrument Used: 5mm curette Tissue Removed: Slough Severity: Fat Layer Exposed Amount of bleeding with debridement: Mild Bleeding Controlled with: Compression and gauze Patient tolerated procedure well Assessment/Plan Active Problems Multiple falls (Acute) Restless leg syndrome (Acute) Closed right fibular fracture (Acute) Non-healing surgical wound (Acute) Wound dehiscence, surgical (Acute) PAD (peripheral artery disease) (Acute) Assessment: Fracture left ankle with hardware. Nonhealing dehisced surgical wound left lateral ankle. Chronic nonhealing surgical wound Plan: Wash leg with antibacterial soap. Apply Fibracol to wound base moistened cover with Adaptic gauze and tape. Follow-up in 1 week. Applying for skin substitute
== END 2020-08-08 23:59 ==
LOC: WC 09:30
PROVIDERS: PCP Nurse Practitioner Family; Referring Provider Podiatrist Foot & Ankle Surgery; Visit Provider Nurse Practitioner
DX: T81.31XA Disruption of external operation (surgical) wound, not elsewhere classified, initial encounter (principal); T81.89XA Other complications of procedures, not elsewhere classified, initial encounter; Y83.8 Other surgical procedures as the cause of abnormal reaction of the patient, or of later complication, without mention of misadventure at the time of the procedure; G25.81 Restless legs syndrome; R29.6 Repeated falls; I10 Essential (primary) hypertension; F17.200 Nicotine dependence, unspecified, uncomplicated; Z79.899 Other long term (current) drug therapy; Z79.82 Long term (current) use of aspirin; I73.9 Peripheral vascular disease, unspecified
CPT/HCPCS: 11042; 99213; G0463

== ENCOUNTER 2020-09-05 08:15 | Outpatient (RCR) | payer MEDICARE, SELFPAY ==
[2020-08-09 00:46] VITALS: BP 149/84; PULSE 84; RESP 16; TEMP 35.1
[2020-08-15 08:55] VITALS: BP 110/57; PULSE 86; RESP 18; TEMP 36.8; BMI 22.6
[2020-08-15 09:51] VITALS: BP 107/58; PULSE 85; RESP 18
[2020-08-22 08:49] VITALS: BP 93/54; PULSE 93; RESP 18; TEMP 36.1; BMI 22.6
--- NOTE | 2020-08-22 09:36 | PN.PCM_ITS ---
(1) Non-healing surgical wound Status: Acute Code(s): T81.89XA - Other complications of procedures, not elsewhere classified, initial encounter (2) PAD (peripheral artery disease) Status: Chronic Code(s): I73.9 - Peripheral vascular disease, unspecified (3) Restless leg syndrome Status: Chronic Code(s): G25.81 - Restless legs syndrome (4) Wound dehiscence, surgical Status: Acute Qualifiers: Code(s): T81.31XA - Disruption of external operation (surgical) wound, not elsewhere classified, initial encounter Type of Wound Date of Service: 08/22/20 Chief Complaint: Follow-up on dehisced surgical wound of right lateral lower leg History of Wound: 65-year-old white female that had surgery for a fractured ankle back in April 2020 had screws and and metal placed in the wound. Patient then dehisced and her orthopedic surgeon has been using Silvadene cream to close her. He she is also on doxycycline and he referred her to the wound clinic. Patient states she suffers from restless legs and she gets up in the night and falls frequently. Did receive her arterial brachial study and it shows she has severe PAD Progress of Wound: Today was the first week of epifix #1 on and wound appears b matti undermining is gone. Applied #2 epifix to wound bed we will follow-up in 1 week patient is having less pain more itching - Physical Exam Vital Signs Temp Pulse Resp BP 97 F L 93 18 93/54 L 08/22/20 08:49 08/22/20 08:49 08/22/20 08:49 08/22/20 08:49 Wound Measurements and Assessment WC - Nurse 1 - General Ulcer Measurement Start: 08/15/20 08:54 Freq: Status: Active Protocol: Activity Type Activity Date Activity User E-Sign Co-Sign Detail Recorded Client Recorded Date Recorded By Document 08/22/20 08:49 RB [id number] 08/22/20 08:51 RB 08/22/20 08:49 Wound Center Nurse 1 [Ulcer Assessment] #1 Right lateral lower ext -Combined with other wound No -Current Size (cm) - Length 1.4 -Current Size (cm) - Width 0.5 -Current Size (cm) - Depth 0.3 -Total Square Cm 0.70 -Tunneling No -Undermining/Tunneling No -Circular Undermining No -Exudate Amt Small -Exudate Type Serosanguineous -Wound Margin Thickened & Rolled Under -Granulation Amt Medium (34-66%) -Granulation Quality [place] -Slough/Fibrin Yes -Necrosis Amt Small (1-33%) -Necrotic Tissue Type Adherent Slough -Structure Exposed N/A -Texture (Norma-wound Skin Appearance) Assessed -Moisture (Norma-wound Skin Appearance Assessed ) -Color (Norma-wound Skin Appearance) Assessed -Temperature (Norma-wound Skin No Abnormality Appearance) (Pt Warm) -Tenderness on Palpation (Norma-wound No Skin Appearance) -Ulcer Cleansing Wound Cleanser -Foul Odor after Cleansing No -Anesthetic Used 4% Lidocaine Solution WC - Nurse 2 - General Ulcer CM Notes Start: 08/15/20 08:54 Freq: Status: Active Protocol: Activity Type Activity Date Activity User E-Sign Co-Sign Detail Recorded Client Recorded Date Recorded By Document 08/22/20 09:06 MW [id number] 08/22/20 09:12 MW 08/22/20 09:06 Wound Center Nurse 2 [Procedure/Treatment] -Time 09:07 -Correct Patient Yes -Correct Side, Site, Position Yes -Correct Procedure Yes -Procedure Performed Yes -Type of Procedure Debridement -Clinical Debridement Subcutaneous -Tissue Removed Subcutaneous -Post Debridement (cm) - Length 1.7 -Post Debridement (cm) - Width 0.6 -Post Debridement (cm) - Depth 0.3 -Total Square (Post) (cm) 1.02 -Area of Debridement (cm) - Length 1.7 -Area of Debridement (cm) - Width 0.6 -Total Square (Area) (cm) 1.02 -Tunneling No -Undermining/Tunneling No -Circular Undermining No -Wound/Ulcer Outcome Not Healed -Ulcer Cleansing Rinsed/ Irrigated with Saline -Foul Odor after Cleansing No -Bioengineered Tissue Yes -Type of Bioengineered Tissue Epifix -Expiration Date 04/09/25 -Product Lot Number [id number] -Percent Used 100 -Saline Lot Number [id number] -Bleeding Controlled with Pressure -Offloading No -Debridement - Subq, 1st 20sq cm No -Apply Skin Sub - 1st 25 sq cm - Legs 1 -Epifix (per sq cm) 4 [See Physician Procedure note for Specifics] Pain Scale: 0-10 Numeric [Pain] -Is Patient Pain Free? Yes - Nurse 3 - General Ulcer D/C NN Start: 08/15/20 08:54 Freq: Status: Active Protocol: Activity Type Activity Date Activity User E-Sign Co-Sign Detail Recorded Client Recorded Date Recorded By Document 08/22/20 09:12 MW [id number] 08/22/20 09:12 MW 08/22/20 09:12 Wound Care Nurse 3 [Wound Dressing] #1 Right lateral lower ext -Ulcer Cleansing Not Cleansed -Foul Odor after Cleansing No -Negative Pressure Wound Therapy N/A -Primary Dressing Covered/Secured Dry Gauze & with Roll Gauze, Secured with Tape [Post Procedure Tolerated] -Treatment Response Procedure Tolerated Well Pain Scale: 0-10 Numeric [Pain] -Is Patient Pain Free? Yes Teaching: Wound Center [Wound Center Education] (Items with an * have Printed Materials Available- Please identify what is given to patient under the Teaching materials given to patient and caregiver Section. Dressing Your Wound -Person Taught Patient -Teaching Method Discussion, Demonstration -Response to teaching Verbalize understanding - Visit Discharge [Visit Discharge Information] -Discharge Condition Stable -Ambulatory Status Ambulatory -Transportation Private Auto -Accompanied by SELF -Medication Reconcilliation completed No & provided to patient/care provider -Clinical Summary of Care Provided Yes Debridement Note Post-Debridement Measurements/Treatment - Nurse 2 - General Ulcer CM Notes Start: 08/15/20 08:54 Freq: Status: Active Protocol: Activity Type Activity Date Activity User E-Sign Co-Sign Detail Recorded Client Recorded Date Recorded By Document 08/15/20 09:06 MW [id number] 08/15/20 09:15 MW Document 08/22/20 09:06 MW [id number] 08/22/20 09:12 MW 08/15/20 08/22/20 09:06 09:06 Wound Center Nurse 2 #1 Right lateral lower ext -Time 09:06 09:07 -Correct Patient Yes Yes -Correct Side, Site, Position Yes Yes -Correct Procedure Yes Yes -Procedure Performed Yes Yes -Type of Procedure Debridement Debridement -Clinical Debridement Subcutaneous Subcutaneous -Tissue Removed Subcutaneous Subcutaneous -Post Debridement (cm) - Length 1.8 1.7 -Post Debridement (cm) - Width 0.6 0.6 -Post Debridement (cm) - Depth 0.3 0.3 -Total Square (Post) (cm) 1.08 1.02 -Area of Debridement (cm) - Length 1.8 1.7 -Area of Debridement (cm) - Width 0.6 0.6 -Total Square (Area) (cm) 1.08 1.02 -Tunneling No No -Undermining/Tunneling No No -Circular Undermining No No -Wound/Ulcer Outcome Not Healed Not Healed -Ulcer Cleansing Rinsed/ Rinsed/ Irrigated with Irrigated with Saline Saline -Foul Odor after Cleansing No No -Bioengineered Tissue Yes Yes -Type of Bioengineered Tissue Epifix Epifix -Expiration Date 04/09/25 04/09/25 -Product Lot Number [id number] -Percent Used 100 100 -Saline Lot Number [id number] -Injectable Lidocaine w/ Epi (%) 1 -Injectable Lidocaine w/ Epi (mls) 5 -Bleeding Controlled with Pressure Pressure -Offloading No No -Treatment Response Procedure Tolerated Well -Debridement - Subq, 1st 20sq cm No No -Apply Skin Sub - 1st 25 sq cm - Legs 1 1 -Epifix (per sq cm) 4 4 Pain Scale: 0-10 Numeric Is Patient Pain Free? Yes Yes - Nurse 3 - General Ulcer D/C NN Start: 08/15/20 08:54 Freq: Status: Active Protocol: Activity Type Activity Date Activity User E-Sign Co-Sign Detail Recorded Client Recorded Date Recorded By Document 08/15/20 09:51 MT [id number] 08/15/20 09:57 MT Document 08/22/20 09:12 MW [id number] 08/22/20 09:12 MW 08/15/20 08/22/20 09:51 09:12 Wound Care Nurse 3 #1 Right lateral lower ext -Ulcer Cleansing Not Cleansed -Foul Odor after Cleansing No -Negative Pressure Wound Therapy N/A -Other Dressing EPIFIX -Primary Dressing Covered/Secured with Dry Gauze, Dry Gauze & Secured with Roll Gauze, Tape Secured with Tape Treatment Response Procedure Tolerated Well Vital Signs Pulse Rate (60-100 beats/min) 85 Pulse Location Monitor Respiratory Rate (12-18 breaths/min) 18 Respiratory rate source Observation Blood Pressure (90/60-120/80 mm Hg) 107/58 L Blood Pressure Mean (mm Hg) 74 Source Monitor Position Sitting Blood Pressure Location Right Arm Pain Scale: 0-10 Numeric Is Patient Pain Free? Yes Yes Teaching: Wound Center Dressing Your Wound -Person Taught Patient -Teaching Method Discussion, Demonstration -Response to teaching Verbalize understanding WC - Visit Discharge Discharge Condition Stable Stable Ambulatory Status Ambulatory Ambulatory Transportation Private Auto Private Auto Accompanied by SELF Medication Reconcilliation completed & No No provided to patient/care provider Clinical Summary of Care Provided Yes Yes No debridement was completed today Assessment/Plan Assessment: Fracture left ankle with hardware. Nonhealing dehisced surgical wound left lateral ankle. Chronic nonhealing surgical wound Plan: Applied epi fix #2 with with coverage and Steri-Strips tolerated well. Follow-up in 1 week
[2020-08-29 08:51] VITALS: BP 91/58; PULSE 86; RESP 18; TEMP 36.6; BMI 22.6
[2020-08-29 09:12] VITALS: BP 92/60; PULSE 61
--- NOTE | 2020-08-29 09:16 | PCM.WC.PN ---
(1) Non-healing surgical wound Status: Acute Qualifiers: Encounter type: subsequent encounter Qualified Code(s): T81.89XD - Other complications of procedures, not elsewhere classified, subsequent encounter Code(s): T81.89XA - Other complications of procedures, not elsewhere classified, initial encounter (2) PAD (peripheral artery disease) Status: Chronic Code(s): I73.9 - Peripheral vascular disease, unspecified (3) Restless leg syndrome Status: Chronic Code(s): G25.81 - Restless legs syndrome (4) Wound dehiscence, surgical Status: Acute Qualifiers: Encounter type: subsequent encounter Code(s): T81.31XA - Disruption of external operation (surgical) wound, not elsewhere classified, initial encounter Type of Wound Date of Service: 08/29/20 Chief Complaint: Follow-up on dehisced surgical wound of right lateral lower leg History of Wound: 65-year-old white female that had surgery for a fractured ankle back in April 2020 had screws and and metal placed in the wound. Patient then dehisced and her orthopedic surgeon has been using Silvadene cream to close her. He she is also on doxycycline and he referred her to the wound clinic. Patient states she suffers from restless legs and she gets up in the night and falls frequently. Did receive her arterial brachial study and it shows she has severe PAD Progress of Wound: Patient states dressing came off on Thursday with her sock. Does not she be more careful because it needs a least for 3 days for absorption. Bottom part of the wound base is filling in nicely. Pain is more tolerable. #3 epi applied - Physical Exam Vital Signs Temp Pulse Resp BP 97.8 F 61 18 92/60 08/29/20 08:51 08/29/20 09:12 08/29/20 08:51 08/29/20 09:12 General: Oriented x3, Cooperative, Well developed HEENT: Atraumatic, PERRLA Oral: Moist Mucosa Neck: Supple, No JVD Lungs: Clear to auscultation, Normal air movement Cardiovascular: Regular rate, Regular Rhythm Abdomen: Bowel Sounds Present, Soft, Non Tender, No Hepato-splenomegaly Extremities: No clubbing, No edema Skin: Ulcer/ Wound - Right ankle dehisced wound with a history of PAD Wound Measurements and Assessment WC - Nurse 1 - General Ulcer Measurement Start: 08/15/20 08:54 Freq: Status: Active Protocol: Activity Type Activity Date Activity User E-Sign Co-Sign Detail Recorded Client Recorded Date Recorded By Document 08/29/20 08:51 RB [id number] 08/29/20 08:53 RB 08/29/20 08:51 Wound Center Nurse 1 [Ulcer Assessment] #1 Right lateral lower ext -Combined with other wound No -Current Size (cm) - Length 1.9 -Current Size (cm) - Width 0.8 -Current Size (cm) - Depth 0.3 -Total Square Cm 1.52 -Tunneling No -Undermining/Tunneling No -Circular Undermining No -Exudate Amt Small -Exudate Type Serosanguineous -Wound Margin Flat & Intact -Granulation Amt Medium (34-66%) -Granulation Quality Sunshine -Slough/Fibrin Yes -Necrosis Amt Small (1-33%) -Necrotic Tissue Type Adherent Slough -Structure Exposed N/A -Texture (Norma-wound Skin Appearance) Assessed, Scarring -Moisture (Norma-wound Skin Appearance Assessed ) -Color (Norma-wound Skin Appearance) Assessed -Temperature (Norma-wound Skin No Abnormality Appearance) (Pt Warm) -Tenderness on Palpation (Norma-wound No Skin Appearance) -Ulcer Cleansing Wound Cleanser -Foul Odor after Cleansing No -Anesthetic Used 5% Lidocaine Gel WC - Nurse 2 - General Ulcer CM Notes Start: 08/15/20 08:54 Freq: Status: Active Protocol: Activity Type Activity Date Activity User E-Sign Co-Sign Detail Recorded Client Recorded Date Recorded By Document 08/29/20 08:57 MW [id number] 08/29/20 09:03 MW 08/29/20 08:57 Wound Center Nurse 2 [Procedure/Treatment] -Time 09:01 -Correct Patient Yes -Correct Side, Site, Position Yes -Correct Procedure Yes -Procedure Performed Yes -Type of Procedure Debridement -Clinical Debridement Subcutaneous -Tissue Removed Subcutaneous -Post Debridement (cm) - Length 1.5 -Post Debridement (cm) - Width 0.6 -Post Debridement (cm) - Depth 0.3 -Total Square (Post) (cm) 0.90 -Area of Debridement (cm) - Length 1.5 -Area of Debridement (cm) - Width 0.6 -Total Square (Area) (cm) 0.90 -Tunneling No -Undermining/Tunneling No -Circular Undermining No -Wound/Ulcer Outcome Not Healed -Ulcer Cleansing Rinsed/ Irrigated with Saline -Foul Odor after Cleansing No -Bioengineered Tissue Yes -Type of Bioengineered Tissue Epifix -Expiration Date 05/09/25 -Product Lot Number [id number] -Percent Used 100 -Saline Lot Number [id number] -Bleeding Controlled with Pressure -Offloading No -Debridement - Subq, 1st 20sq cm No -Apply Skin Sub - 1st 25 sq cm - Legs 1 -Epifix (per sq cm) 4 [See Physician Procedure note for Specifics] Pain Scale: 0-10 Numeric [Pain] -Is Patient Pain Free? Yes WC - Nurse 3 - General Ulcer D/C NN Start: 08/15/20 08:54 Freq: Status: Active Protocol: Activity Type Activity Date Activity User E-Sign Co-Sign Detail Recorded Client Recorded Date Recorded By Document 08/29/20 09:12 MS [id number] 08/29/20 09:15 MS 08/29/20 09:12 Wound Care Nurse 3 [Wound Dressing] #1 Right lateral lower ext -Ulcer Cleansing Not Cleansed -Foul Odor after Cleansing No -Primary Dressing Covered/Secured Dry Gauze & with Roll Gauze, Secured with Tape Vital Signs [Pulse] -Pulse Rate (60-100 beats/min) 61 -Pulse Location Monitor [Blood Pressure] -Blood Pressure (90/60-120/80 mm Hg) 92/60 -Blood Pressure Mean (mm Hg) 70 -Source Monitor Pain Scale: 0-10 Numeric [Pain] -Is Patient Pain Free? Yes Teaching: Wound Center [Wound Center Education] (Items with an * have Printed Materials Available- Please identify what is given to patient under the Teaching materials given to patient and caregiver Section. Control Swelling with Leg Elevation -Person Taught Patient -Teaching Method Discussion -Response to teaching Verbalize understanding Dressing Your Wound -Person Taught Patient -Teaching Method Discussion -Response to teaching Verbalize understanding WC - Visit Discharge [Visit Discharge Information] -Discharge Condition Stable -Ambulatory Status Ambulatory -Transportation Private Auto -Medication Reconcilliation completed No & provided to patient/care provider -Clinical Summary of Care Provided Yes Musculoskeletal: No Tenderness to Palpation of Joints or Extremities Lymphatic: No Cervical, Supraclavicular, or Inguinal Adenopathy Neurological: Cranial nerves II-XII grossly intact, Neuro grossly intact Psych/Mental Status: Normal Affect, Appropriate Debridement Note Post-Debridement Measurements/Treatment WC - Nurse 2 - General Ulcer CM Notes Start: 08/15/20 08:54 Freq: Status: Active Protocol: Activity Type Activity Date Activity User E-Sign Co-Sign Detail Recorded Client Recorded Date Recorded By Document 08/15/20 09:06 MW [id number] 08/15/20 09:15 MW Document 08/22/20 09:06 MW [id number] 08/22/20 09:12 MW Document 08/29/20 08:57 MW [id number] 08/29/20 09:03 MW 08/15/20 08/22/20 08/29/20 09:06 09:06 08:57 Wound Center Nurse 2 #1 Right lateral lower ext -Time 09:06 09:07 09:01 -Correct Patient Yes Yes Yes -Correct Side, Site, Position Yes Yes Yes -Correct Procedure Yes Yes Yes -Procedure Performed Yes Yes Yes -Type of Procedure Debridement Debridement Debridement -Clinical Debridement Subcutaneous Subcutaneous Subcutaneous -Tissue Removed Subcutaneous Subcutaneous Subcutaneous -Post Debridement (cm) - Length 1.8 1.7 1.5 -Post Debridement (cm) - Width 0.6 0.6 0.6 -Post Debridement (cm) - Depth 0.3 0.3 0.3 -Total Square (Post) (cm) 1.08 1.02 0.90 -Area of Debridement (cm) - Length 1.8 1.7 1.5 -Area of Debridement (cm) - Width 0.6 0.6 0.6 -Total Square (Area) (cm) 1.08 1.02 0.90 -Tunneling No No No -Undermining/Tunneling No No No -Circular Undermining No No No -Wound/Ulcer Outcome Not Healed Not Healed Not Healed -Ulcer Cleansing Rinsed/ Rinsed/ Rinsed/ Irrigated with Irrigated with Irrigated with Saline Saline Saline -Foul Odor after Cleansing No No No -Bioengineered Tissue Yes Yes Yes -Type of Bioengineered Tissue Epifix Epifix Epifix -Expiration Date 04/09/25 04/09/25 05/09/25 -Product Lot Number [id number] -Percent Used 100 100 100 -Saline Lot Number [id number] -Injectable Lidocaine w/ Epi (%) 1 -Injectable Lidocaine w/ Epi (mls) 5 -Bleeding Controlled with Pressure Pressure Pressure -Offloading No No No -Treatment Response Procedure Tolerated Well -Debridement - Subq, 1st 20sq cm No No No -Apply Skin Sub - 1st 25 sq cm - Legs 1 1 1 -Epifix (per sq cm) 4 4 4 Pain Scale: 0-10 Numeric Is Patient Pain Free? Yes Yes Yes WC - Nurse 3 - General Ulcer D/C NN Start: 08/15/20 08:54 Freq: Status: Active Protocol: Activity Type Activity Date Activity User E-Sign Co-Sign Detail Recorded Client Recorded Date Recorded By Document 08/15/20 09:51 MT [id number] 08/15/20 09:57 MT Document 08/22/20 09:12 MW [id number] 08/22/20 09:12 MW Document 08/29/20 09:12 MS [id number] 08/29/20 09:15 MS 08/15/20 08/22/20 08/29/20 09:51 09:12 09:12 Wound Care Nurse 3 #1 Right lateral lower ext -Ulcer Cleansing Not Cleansed Not Cleansed -Foul Odor after Cleansing No No -Negative Pressure Wound Therapy N/A -Other Dressing EPIFIX -Primary Dressing Covered/Secured with Dry Gauze, Dry Gauze & Dry Gauze & Secured with Roll Gauze, Roll Gauze, Tape Secured with Secured with Tape Tape Treatment Response Procedure Tolerated Well Vital Signs Pulse Rate (60-100 beats/min) 85 61 Pulse Location Monitor Monitor Respiratory Rate (12-18 breaths/min) 18 Respiratory rate source Observation Blood Pressure (90/60-120/80 mm Hg) 107/58 L 92/60 Blood Pressure Mean (mm Hg) 74 70 Source Monitor Monitor Position Sitting Blood Pressure Location Right Arm Pain Scale: 0-10 Numeric Is Patient Pain Free? Yes Yes Yes Teaching: Wound Center Control Swelling with Leg Elevation -Person Taught Patient -Teaching Method Discussion -Response to teaching Verbalize understanding Dressing Your Wound -Person Taught Patient Patient -Teaching Method Discussion, Discussion Demonstration -Response to teaching Verbalize Verbalize understanding understanding WC - Visit Discharge Discharge Condition Stable Stable Stable Ambulatory Status Ambulatory Ambulatory Ambulatory Transportation Private Auto Private Auto Private Auto Accompanied by SELF Medication Reconcilliation completed & No No No provided to patient/care provider Clinical Summary of Care Provided Yes Yes Yes Wound debrided: Right lateral ankle Type of Debridement: Excisional debridement Anesthesia Used: 5% Lidocaine Gel Depth: Down to and including healthy tissue, in the subcutaneous layer Percentage of wound debrided: 100 Instrument Used: 5mm curette Tissue Removed: Fibrin Severity: Limited To Skin Breakdown Bleeding Controlled with: Pressure, Compression and gauze Patient tolerated procedure well Assessment/Plan Active Problems Restless leg syndrome (Chronic) Non-healing surgical wound (Acute) Wound dehiscence, surgical (Acute) PAD (peripheral artery disease) (Chronic) Assessment: Fracture left ankle with hardware. Nonhealing dehisced surgical wound left lateral ankle. Chronic nonhealing surgical wound Plan: Applied epi fix #3 with with coverage and Steri-Strips tolerated well. Follow-up in 1 week
[2020-09-05 08:11] VITALS: BP 105/72; PULSE 93; TEMP 37.1; BMI 22.6
--- NOTE | 2020-09-05 08:33 | PCM.WC.PN ---
(1) Non-healing surgical wound Status: Acute Qualifiers: Encounter type: subsequent encounter Qualified Code(s): T81.89XD - Other complications of procedures, not elsewhere classified, subsequent encounter Code(s): T81.89XA - Other complications of procedures, not elsewhere classified, initial encounter (2) PAD (peripheral artery disease) Status: Chronic Code(s): I73.9 - Peripheral vascular disease, unspecified (3) Restless leg syndrome Status: Chronic Code(s): G25.81 - Restless legs syndrome (4) Wound dehiscence, surgical Status: Acute Qualifiers: Encounter type: subsequent encounter Code(s): T81.31XA - Disruption of external operation (surgical) wound, not elsewhere classified, initial encounter Type of Wound Date of Service: 09/05/20 Chief Complaint: Follow-up on dehisced surgical wound of right lateral lower leg History of Wound: 65-year-old white female that had surgery for a fractured ankle back in April 2020 had screws and and metal placed in the wound. Patient then dehisced and her orthopedic surgeon has been using Silvadene cream to close her. He she is also on doxycycline and he referred her to the wound clinic. Patient states she suffers from restless legs and she gets up in the night and falls frequently. Did receive her arterial brachial study and it shows she has severe PAD Progress of Wound: The measurements are slightly larger but she is starting to make new tissue and she is filling in on the sides with no tissue more than in the depth no sign of infection pain is better tolerating treatment well #4 epi applied today - Physical Exam Vital Signs Temp Pulse Resp BP 98.8 F 93 18 105/72 09/05/20 08:11 09/05/20 08:11 08/29/20 08:51 09/05/20 08:11 General: Oriented x3, Cooperative, Well developed HEENT: Atraumatic, PERRLA Oral: Moist Mucosa Neck: Supple, No JVD Lungs: Clear to auscultation, Normal air movement Cardiovascular: Regular rate, Regular Rhythm Abdomen: Bowel Sounds Present, Soft, Non Tender, No Hepato-splenomegaly Extremities: No clubbing, No edema Skin: Ulcer/ Wound - Right lateral ankle dehisced surgical wound from a fractured ankle Wound Measurements and Assessment WC - Nurse 1 - General Ulcer Measurement Start: 08/15/20 08:54 Freq: Status: Active Protocol: Activity Type Activity Date Activity User E-Sign Co-Sign Detail Recorded Client Recorded Date Recorded By Document 09/05/20 08:11 MS [id number] 09/05/20 08:15 MS 09/05/20 08:11 Wound Center Nurse 1 [Ulcer Assessment] #1 Right lateral lower ext -Current Size (cm) - Length 1.7 -Current Size (cm) - Width 0.8 -Current Size (cm) - Depth 0.3 -Total Square Cm 1.36 -Exudate Amt Medium -Exudate Type Serosanguineous -Wound Margin Distinct, Outline Attached -Granulation Amt Medium (34-66%) -Slough/Fibrin Yes -Necrosis Amt Small (1-33%) -Necrotic Tissue Type Adherent Slough -Texture (Norma-wound Skin Appearance) Assessed -Moisture (Norma-wound Skin Appearance No Abnormality, ) Dry/Scaly -Color (Norma-wound Skin Appearance) No Abnormality -Temperature (Norma-wound Skin No Abnormality Appearance) (Pt Warm) -Ulcer Cleansing Wound Cleanser -Foul Odor after Cleansing No -Anesthetic Used 4% Lidocaine Solution WC - Nurse 2 - General Ulcer CM Notes Start: 08/15/20 08:54 Freq: Status: Active Protocol: Activity Type Activity Date Activity User E-Sign Co-Sign Detail Recorded Client Recorded Date Recorded By Document 09/05/20 08:24 MW [id number] 09/05/20 08:28 MW 09/05/20 08:24 Wound Center Nurse 2 [Procedure/Treatment] -Time 08:27 -Correct Patient Yes -Correct Side, Site, Position Yes -Correct Procedure Yes -Procedure Performed Yes -Type of Procedure Debridement -Clinical Debridement Subcutaneous -Tissue Removed Subcutaneous -Post Debridement (cm) - Length 1.8 -Post Debridement (cm) - Width 0.7 -Post Debridement (cm) - Depth 0.3 -Total Square (Post) (cm) 1.26 -Area of Debridement (cm) - Length 1.8 -Area of Debridement (cm) - Width 0.7 -Total Square (Area) (cm) 1.26 -Tunneling No -Undermining/Tunneling No -Circular Undermining No -Wound/Ulcer Outcome Not Healed -Ulcer Cleansing Rinsed/ Irrigated with Saline -Foul Odor after Cleansing No -Bioengineered Tissue Yes -Type of Bioengineered Tissue Epifix -Expiration Date 04/09/25 -Product Lot Number [id number] -Percent Used 100 -Saline Lot Number [id number] -Bleeding Controlled with Pressure -Offloading No -Treatment Response Procedure Tolerated Well -Debridement - Subq, 1st 20sq cm No -Apply Skin Sub - 1st 25 sq cm - Legs 1 -Epifix (per sq cm) 4 [See Physician Procedure note for Specifics] Pain Scale: 0-10 Numeric [Pain] -Is Patient Pain Free? Yes Musculoskeletal: No Tenderness to Palpation of Joints or Extremities Lymphatic: No Cervical, Supraclavicular, or Inguinal Adenopathy Neurological: Cranial nerves II-XII grossly intact, Neuro grossly intact Psych/Mental Status: Normal Affect, Appropriate Debridement Note Post-Debridement Measurements/Treatment WC - Nurse 2 - General Ulcer CM Notes Start: 08/15/20 08:54 Freq: Status: Active Protocol: Activity Type Activity Date Activity User E-Sign Co-Sign Detail Recorded Client Recorded Date Recorded By Document 08/15/20 09:06 MW [id number] 08/15/20 09:15 MW Document 08/22/20 09:06 MW [id number] 08/22/20 09:12 MW Document 08/29/20 08:57 MW [id number] 08/29/20 09:03 MW Document 09/05/20 08:24 MW [id number] 09/05/20 08:28 MW 08/15/20 08/22/20 08/29/20 09:06 09:06 08:57 Wound Center Nurse 2 #1 Right lateral lower ext -Time 09:06 09:07 09:01 -Correct Patient Yes Yes Yes -Correct Side, Site, Position Yes Yes Yes -Correct Procedure Yes Yes Yes -Procedure Performed Yes Yes Yes -Type of Procedure Debridement Debridement Debridement -Clinical Debridement Subcutaneous Subcutaneous Subcutaneous -Tissue Removed Subcutaneous Subcutaneous Subcutaneous -Post Debridement (cm) - Length 1.8 1.7 1.5 -Post Debridement (cm) - Width 0.6 0.6 0.6 -Post Debridement (cm) - Depth 0.3 0.3 0.3 -Total Square (Post) (cm) 1.08 1.02 0.90 -Area of Debridement (cm) - Length 1.8 1.7 1.5 -Area of Debridement (cm) - Width 0.6 0.6 0.6 -Total Square (Area) (cm) 1.08 1.02 0.90 -Tunneling No No No -Undermining/Tunneling No No No -Circular Undermining No No No -Wound/Ulcer Outcome Not Healed Not Healed Not Healed -Ulcer Cleansing Rinsed/ Rinsed/ Rinsed/ Irrigated with Irrigated with Irrigated with Saline Saline Saline -Foul Odor after Cleansing No No No -Bioengineered Tissue Yes Yes Yes -Type of Bioengineered Tissue Epifix Epifix Epifix -Expiration Date 04/09/25 04/09/25 05/09/25 -Product Lot Number [id number] -Percent Used 100 100 100 -Saline Lot Number [id number] -Injectable Lidocaine w/ Epi (%) 1 -Injectable Lidocaine w/ Epi (mls) 5 -Bleeding Controlled with Pressure Pressure Pressure -Offloading No No No -Treatment Response Procedure Tolerated Well -Debridement - Subq, 1st 20sq cm No No No -Apply Skin Sub - 1st 25 sq cm - Legs 1 1 1 -Epifix (per sq cm) 4 4 4 Pain Scale: 0-10 Numeric Is Patient Pain Free? Yes Yes Yes 09/05/20 08:24 Wound Center Nurse 2 #1 Right lateral lower ext -Time 08:27 -Correct Patient Yes -Correct Side, Site, Position Yes -Correct Procedure Yes -Procedure Performed Yes -Type of Procedure Debridement -Clinical Debridement Subcutaneous -Tissue Removed Subcutaneous -Post Debridement (cm) - Length 1.8 -Post Debridement (cm) - Width 0.7 -Post Debridement (cm) - Depth 0.3 -Total Square (Post) (cm) 1.26 -Area of Debridement (cm) - Length 1.8 -Area of Debridement (cm) - Width 0.7 -Total Square (Area) (cm) 1.26 -Tunneling No -Undermining/Tunneling No -Circular Undermining No -Wound/Ulcer Outcome Not Healed -Ulcer Cleansing Rinsed/ Irrigated with Saline -Foul Odor after Cleansing No -Bioengineered Tissue Yes -Type of Bioengineered Tissue Epifix -Expiration Date 04/09/25 -Product Lot Number [id number] -Percent Used 100 -Saline Lot Number [id number] -Injectable Lidocaine w/ Epi (%) -Injectable Lidocaine w/ Epi (mls) -Bleeding Controlled with Pressure -Offloading No -Treatment Response Procedure Tolerated Well -Debridement - Subq, 1st 20sq cm No -Apply Skin Sub - 1st 25 sq cm - Legs 1 -Epifix (per sq cm) 4 Pain Scale: 0-10 Numeric Is Patient Pain Free? Yes WC - Nurse 3 - General Ulcer D/C NN Start: 08/15/20 08:54 Freq: Status: Active Protocol: Activity Type Activity Date Activity User E-Sign Co-Sign Detail Recorded Client Recorded Date Recorded By Document 08/15/20 09:51 MT [id number] 08/15/20 09:57 MT Document 08/22/20 09:12 MW [id number] 08/22/20 09:12 MW Document 08/29/20 09:12 MS [id number] 08/29/20 09:15 MS 08/15/20 08/22/20 08/29/20 09:51 09:12 09:12 Wound Care Nurse 3 #1 Right lateral lower ext -Ulcer Cleansing Not Cleansed Not Cleansed -Foul Odor after Cleansing No No -Negative Pressure Wound Therapy N/A -Other Dressing EPIFIX -Primary Dressing Covered/Secured with Dry Gauze, Dry Gauze & Dry Gauze & Secured with Roll Gauze, Roll Gauze, Tape Secured with Secured with Tape Tape Treatment Response Procedure Tolerated Well Vital Signs Pulse Rate (60-100 beats/min) 85 61 Pulse Location Monitor Monitor Respiratory Rate (12-18 breaths/min) 18 Respiratory rate source Observation Blood Pressure (90/60-120/80 mm Hg) 107/58 L 92/60 Blood Pressure Mean (mm Hg) 74 70 Source Monitor Monitor Position Sitting Blood Pressure Location Right Arm Pain Scale: 0-10 Numeric Is Patient Pain Free? Yes Yes Yes Teaching: Wound Center Control Swelling with Leg Elevation -Person Taught Patient -Teaching Method Discussion -Response to teaching Verbalize understanding Dressing Your Wound -Person Taught Patient Patient -Teaching Method Discussion, Discussion Demonstration -Response to teaching Verbalize Verbalize understanding understanding WC - Visit Discharge Discharge Condition Stable Stable Stable Ambulatory Status Ambulatory Ambulatory Ambulatory Transportation Private Auto Private Auto Private Auto Accompanied by SELF Medication Reconcilliation completed & No No No provided to patient/care provider Clinical Summary of Care Provided Yes Yes Yes Wound debrided: Right lateral ankle Type of Debridement: Excisional debridement Anesthesia Used: 5% Lidocaine Gel Depth: Down to and including healthy tissue Instrument Used: 3mm curette Tissue Removed: Devitalized tissue and fibrin Amount of bleeding with debridement: None Bleeding Controlled with: Pressure Patient tolerated procedure well Assessment/Plan Active Problems Restless leg syndrome (Chronic) Non-healing surgical wound (Acute) Wound dehiscence, surgical (Acute) PAD (peripheral artery disease) (Chronic) Assessment: Fracture left ankle with hardware. Nonhealing dehisced surgical wound left lateral ankle. Chronic nonhealing surgical wound Plan: Applied epi fix #4 with with Adaptic gentle and Steri-Strips tolerated well. Follow-up in 1 week
[2020-09-05 08:35] VITALS: BP 138/81; PULSE 80
== END 2020-09-08 23:59 ==
LOC: WC 08:15
PROVIDERS: PCP Nurse Practitioner Family; Referring Provider Podiatrist Foot & Ankle Surgery; Visit Provider Nurse Practitioner
DX: T81.31XA Disruption of external operation (surgical) wound, not elsewhere classified, initial encounter (principal); I73.9 Peripheral vascular disease, unspecified; G25.81 Restless legs syndrome; R29.6 Repeated falls
CPT/HCPCS: 15271; Q4186

== ENCOUNTER 2020-10-03 08:00 | Outpatient (RCR) | payer MEDICARE, SELFPAY ==
[2020-09-09 00:30] VITALS: BP 138/81; PULSE 80; RESP 18; TEMP 37.1
[2020-09-12 08:12] VITALS: BP 98/62; PULSE 82; RESP 16; TEMP 35.9; BMI 22.6
--- NOTE | 2020-09-12 08:28 | PN.PCM_ITS ---
(1) Non-healing surgical wound Status: Acute Qualifiers: Encounter type: subsequent encounter Code(s): T81.89XA - Other complications of procedures, not elsewhere classified, initial encounter (2) Wound dehiscence, surgical Status: Acute Qualifiers: Encounter type: subsequent encounter Code(s): T81.31XA - Disruption of external operation (surgical) wound, not elsewhere classified, initial encounter (3) PAD (peripheral artery disease) Status: Chronic Code(s): I73.9 - Peripheral vascular disease, unspecified (4) Restless leg syndrome Status: Chronic Code(s): G25.81 - Restless legs syndrome Type of Wound Date of Service: 09/12/20 Chief Complaint: Follow-up on dehisced surgical wound of right lateral lower leg History of Wound: 65-year-old white female that had surgery for a fractured ankle back in April 2020 had screws and and metal placed in the wound. Patient then dehisced and her orthopedic surgeon has been using Silvadene cream to close her. He she is also on doxycycline and he referred her to the wound clinic. Patient states she suffers from restless legs and she gets up in the night and falls frequently. Did receive her arterial brachial study and it shows she has severe PAD Progress of Wound: The measurements are slightly smaller and she is feeling in from the sides building new tissue from the epifix. The pain is better tolerating treatment well #5 epi applied today. No sign of infection noted. Some maceration around the edges we will try applying Aquacel to the Steri- Strips on top to absorb any drainage - Physical Exam Vital Signs Temp Pulse Resp BP 96.6 F L 82 16 98/62 09/12/20 08:12 09/12/20 08:12 09/12/20 08:12 09/12/20 08:12 General: Oriented x3, Cooperative, Well developed HEENT: Atraumatic, PERRLA Oral: Moist Mucosa Neck: Supple, No JVD Lungs: Clear to auscultation, Normal air movement Cardiovascular: Regular rate, Regular Rhythm Abdomen: Bowel Sounds Present, Soft, Non Tender, No Hepato-splenomegaly Extremities: No clubbing, No edema Skin: Ulcer/ Wound - Right lateral ankle dehisced wound Wound Measurements and Assessment WC - Nurse 1 - General Ulcer Measurement Start: 09/12/20 08:12 Freq: Status: Active Protocol: Activity Type Activity Date Activity User E-Sign Co-Sign Detail Recorded Client Recorded Date Recorded By Document 09/12/20 08:12 MS [id number] 09/12/20 08:14 MS 09/12/20 08:12 Wound Center Nurse 1 [Ulcer Assessment] #1 Right lateral lower ext -Current Size (cm) - Length 1.5 -Current Size (cm) - Width 0.3 -Current Size (cm) - Depth 0.1 -Total Square Cm 0.45 -Epithelialization Medium 34-66% -Exudate Amt Small -Exudate Type Serosanguineous -Wound Margin Distinct, Outline Attached -Granulation Amt Small (1-33%) -Slough/Fibrin Yes -Necrosis Amt Small (1-33%) -Necrotic Tissue Type Adherent Slough -Texture (Norma-wound Skin Appearance) No Abnormality, Assessed -Moisture (Norma-wound Skin Appearance No Abnormality, ) Assessed -Color (Norma-wound Skin Appearance) No Abnormality, Assessed -Temperature (Norma-wound Skin No Abnormality Appearance) (Pt Warm) -Tenderness on Palpation (Norma-wound No Skin Appearance) -Ulcer Cleansing Rinsed/ Irrigated with Saline -Foul Odor after Cleansing No -Anesthetic Used 4% Lidocaine Solution WC - Nurse 2 - General Ulcer CM Notes Start: 09/12/20 08:12 Freq: Status: Active Protocol: Activity Type Activity Date Activity User E-Sign Co-Sign Detail Recorded Client Recorded Date Recorded By Document 09/12/20 08:16 MW [id number] 09/12/20 08:23 MW 09/12/20 08:16 Wound Center Nurse 2 [Procedure/Treatment] -Time 08:18 -Correct Patient Yes -Correct Side, Site, Position Yes -Correct Procedure Yes -Procedure Performed Yes -Type of Procedure Debridement -Clinical Debridement Subcutaneous -Tissue Removed Subcutaneous -Post Debridement (cm) - Length 1.6 -Post Debridement (cm) - Width 0.6 -Post Debridement (cm) - Depth 0.2 -Total Square (Post) (cm) 0.96 -Area of Debridement (cm) - Length 1.6 -Area of Debridement (cm) - Width 0.6 -Total Square (Area) (cm) 0.96 -Tunneling No -Undermining/Tunneling No -Circular Undermining No -Wound/Ulcer Outcome Not Healed -Ulcer Cleansing Rinsed/ Irrigated with Saline -Foul Odor after Cleansing No -Bioengineered Tissue Yes -Type of Bioengineered Tissue Epifix 18mm Disc -Expiration Date 04/09/25 -Product Lot Number [id number] -Percent Used 100 -Saline Lot Number [id number] -Bleeding Controlled with Pressure -Offloading No -Debridement - Subq, 1st 20sq cm No -Apply Skin Sub - 1st 25 sq cm - Legs 1 -Epifix 18mm Disc 3 Query Text:18mm = 3 [See Physician Procedure note for Specifics] Pain Scale: 0-10 Numeric [Pain] -Is Patient Pain Free? Yes - Nurse 3 - General Ulcer D/C NN Start: 09/12/20 08:12 Freq: Status: Active Protocol: Activity Type Activity Date Activity User E-Sign Co-Sign Detail Recorded Client Recorded Date Recorded By Document 09/12/20 08:23 MW [id number] 09/12/20 08:24 MW 09/12/20 08:23 Wound Care Nurse 3 [Wound Dressing] #1 Right lateral lower ext -Ulcer Cleansing Not Cleansed -Foul Odor after Cleansing No -Negative Pressure Wound Therapy N/A -Primary Dressing Applied Aquacel Extra -Primary Dressing Covered/Secured Dry Gauze & with Roll Gauze, Secured with Tape -Aquacel Extra 1 [Post Procedure Tolerated] -Treatment Response Procedure Tolerated Well Teaching: Wound Center [Wound Center Education] (Items with an * have Printed Materials Available- Please identify what is given to patient under the Teaching materials given to patient and caregiver Section. Dressing Your Wound -Person Taught Patient -Teaching Method Discussion, Demonstration -Response to teaching Verbalize understanding - Visit Discharge [Visit Discharge Information] -Discharge Condition Stable -Ambulatory Status Ambulatory -Transportation Private Auto -Accompanied by SELF -Medication Reconcilliation completed No & provided to patient/care provider -Clinical Summary of Care Provided Yes Musculoskeletal: No Tenderness to Palpation of Joints or Extremities Lymphatic: No Cervical, Supraclavicular, or Inguinal Adenopathy Neurological: Cranial nerves II-XII grossly intact, Neuro grossly intact Psych/Mental Status: Normal Affect, Appropriate Debridement Note Post-Debridement Measurements/Treatment WC - Nurse 2 - General Ulcer CM Notes Start: 09/12/20 08:12 Freq: Status: Active Protocol: Activity Type Activity Date Activity User E-Sign Co-Sign Detail Recorded Client Recorded Date Recorded By Document 09/12/20 08:16 MW [id number] 09/12/20 08:23 MW 09/12/20 08:16 Wound Center Nurse 2 #1 Right lateral lower ext -Time 08:18 -Correct Patient Yes -Correct Side, Site, Position Yes -Correct Procedure Yes -Procedure Performed Yes -Type of Procedure Debridement -Clinical Debridement Subcutaneous -Tissue Removed Subcutaneous -Post Debridement (cm) - Length 1.6 -Post Debridement (cm) - Width 0.6 -Post Debridement (cm) - Depth 0.2 -Total Square (Post) (cm) 0.96 -Area of Debridement (cm) - Length 1.6 -Area of Debridement (cm) - Width 0.6 -Total Square (Area) (cm) 0.96 -Tunneling No -Undermining/Tunneling No -Circular Undermining No -Wound/Ulcer Outcome Not Healed -Ulcer Cleansing Rinsed/ Irrigated with Saline -Foul Odor after Cleansing No -Bioengineered Tissue Yes -Type of Bioengineered Tissue Epifix 18mm Disc -Expiration Date 04/09/25 -Product Lot Number [id number] -Percent Used 100 -Saline Lot Number [id number] -Bleeding Controlled with Pressure -Offloading No -Debridement - Subq, 1st 20sq cm No -Apply Skin Sub - 1st 25 sq cm - Legs 1 -Epifix 18mm Disc 3 Query Text:18mm = 3 Pain Scale: 0-10 Numeric Is Patient Pain Free? Yes - Nurse 3 - General Ulcer D/C NN Start: 09/12/20 08:12 Freq: Status: Active Protocol: Activity Type Activity Date Activity User E-Sign Co-Sign Detail Recorded Client Recorded Date Recorded By Document 09/12/20 08:23 MW [id number] 09/12/20 08:24 MW 09/12/20 08:23 Wound Care Nurse 3 #1 Right lateral lower ext -Ulcer Cleansing Not Cleansed -Foul Odor after Cleansing No -Negative Pressure Wound Therapy N/A -Primary Dressing Applied Aquacel Extra -Primary Dressing Covered/Secured with Dry Gauze & Roll Gauze, Secured with Tape -Aquacel Extra 1 Treatment Response Procedure Tolerated Well Teaching: Wound Center Dressing Your Wound -Person Taught Patient -Teaching Method Discussion, Demonstration -Response to teaching Verbalize understanding WC - Visit Discharge Discharge Condition Stable Ambulatory Status Ambulatory Transportation Private Auto Accompanied by SELF Medication Reconcilliation completed & No provided to patient/care provider Clinical Summary of Care Provided Yes Wound debrided: Right lateral ankle Type of Debridement: Excisional debridement Anesthesia Used: 5% Lidocaine Gel Depth: Down to and including healthy tissue Percentage of wound debrided: 100 Instrument Used: 3mm curette Tissue Removed: fibrin Assessment/Plan Assessment: Fracture left ankle with hardware. Nonhealing dehisced surgical wound left lateral ankle. Chronic nonhealing surgical wound Plan: Applied epi fix #5 with with Adaptic gentle and Steri-Strips Aquacel over top tolerated well. Continue to keep dry and no dressing changes. Follow-up in 1 week
[2020-09-19 08:01] VITALS: BP 124/61; PULSE 88; RESP 16; TEMP 36; BMI 22.6
[2020-09-19 08:31] VITALS: BP 117/69; PULSE 79
--- NOTE | 2020-09-19 08:50 | PN.PCM_ITS ---
(1) Non-healing surgical wound Status: Acute Qualifiers: Encounter type: subsequent encounter Code(s): T81.89XA - Other complications of procedures, not elsewhere classified, initial encounter (2) Wound dehiscence, surgical Status: Acute Qualifiers: Encounter type: subsequent encounter Code(s): T81.31XA - Disruption of external operation (surgical) wound, not elsewhere classified, initial encounter (3) PAD (peripheral artery disease) Status: Chronic Code(s): I73.9 - Peripheral vascular disease, unspecified (4) Restless leg syndrome Status: Chronic Code(s): G25.81 - Restless legs syndrome Type of Wound Date of Service: 09/19/20 Chief Complaint: Follow-up on dehisced surgical wound of right lateral lower leg History of Wound: 65-year-old white female that had surgery for a fractured ankle back in April 2020 had screws and and metal placed in the wound. Patient then dehisced and her orthopedic surgeon has been using Silvadene cream to close her. He she is also on doxycycline and he referred her to the wound clinic. Patient states she suffers from restless legs and she gets up in the night and falls frequently. Did receive her arterial brachial study and it shows she has severe PAD Progress of Wound: The measurements are slightly smaller and she is feeling in from the sides building new tissue from the epifix. The pain is better tolerating treatment well #6 epi applied today. No sign of infection noted. No maceration around the edges we will continue applying Aquacel to the Steri- Strips on top to absorb any drainage - Physical Exam Vital Signs Temp Pulse Resp BP 96.8 F L 79 16 117/69 09/19/20 08:01 09/19/20 08:31 09/19/20 08:01 09/19/20 08:31 General: Oriented x3, Cooperative, Well developed HEENT: Atraumatic, PERRLA Oral: Moist Mucosa Neck: Supple, No JVD Lungs: Clear to auscultation, Normal air movement Cardiovascular: Regular rate, Regular Rhythm Abdomen: Bowel Sounds Present, Soft, Non Tender, No Hepato-splenomegaly Extremities: No clubbing, No edema, - - Right lateral wound dehisced Wound Measurements and Assessment WC - Nurse 1 - General Ulcer Measurement Start: 09/12/20 08:12 Freq: Status: Active Protocol: Activity Type Activity Date Activity User E-Sign Co-Sign Detail Recorded Client Recorded Date Recorded By Document 09/19/20 08:01 [facility] [id number] 09/19/20 08:06 [facility] 09/19/20 08:01 Wound Center Nurse 1 [Ulcer Assessment] #1 Right lateral lower ext -Combined with other wound No -Current Size (cm) - Length 1.4 -Current Size (cm) - Width 0.5 -Current Size (cm) - Depth 0.3 -Total Square Cm 0.70 -Photo Taken No -Epithelialization None Present -Tunneling No -Undermining/Tunneling No -Circular Undermining No -Exudate Amt Small -Exudate Type Serosanguineous -Wound Margin Distinct, Outline Attached -Granulation Amt Small (1-33%) -Granulation Quality Red -Slough/Fibrin Yes -Necrosis Amt Large (67-100%) -Necrotic Tissue Type Adherent Slough -Texture (Norma-wound Skin Appearance) Assessed, Scarring -Moisture (Norma-wound Skin Appearance Assessed,Dry/ ) Scaly -Color (Norma-wound Skin Appearance) Assessed -Temperature (Norma-wound Skin No Abnormality Appearance) (Pt Warm) -Tenderness on Palpation (Norma-wound No Skin Appearance) -Ulcer Cleansing Rinsed/ Irrigated with Saline -Foul Odor after Cleansing No -Anesthetic Used 4% Lidocaine Solution WC - Nurse 2 - General Ulcer CM Notes Start: 09/12/20 08:12 Freq: Status: Active Protocol: Activity Type Activity Date Activity User E-Sign Co-Sign Detail Recorded Client Recorded Date Recorded By Document 09/19/20 08:17 [id number] 09/19/20 08:21 MW 09/19/20 08:17 Wound Center Nurse 2 [Procedure/Treatment] -Time 08:20 -Correct Patient Yes -Correct Side, Site, Position Yes -Correct Procedure Yes -Procedure Performed Yes -Type of Procedure Debridement -Clinical Debridement Subcutaneous -Tissue Removed Subcutaneous -Post Debridement (cm) - Length 1.1 -Post Debridement (cm) - Width 0.5 -Post Debridement (cm) - Depth 0.2 -Total Square (Post) (cm) 0.55 -Area of Debridement (cm) - Length 1.1 -Area of Debridement (cm) - Width 0.5 -Total Square (Area) (cm) 0.55 -Tunneling No -Undermining/Tunneling No -Circular Undermining No -Wound/Ulcer Outcome Not Healed -Ulcer Cleansing Rinsed/ Irrigated with Saline -Foul Odor after Cleansing No -Bioengineered Tissue Yes -Type of Bioengineered Tissue Epifix 18mm Disc -Expiration Date 04/09/25 -Product Lot Number [id number] -Percent Used 100 -Saline Lot Number [id number] -Bleeding Controlled with Pressure -Offloading No -Debridement - Subq, 1st 20sq cm No -Apply Skin Sub - 1st 25 sq cm - Legs 1 -Epifix 18mm Disc 3 Query Text:18mm = 3 [See Physician Procedure note for Specifics] Pain Scale: 0-10 Numeric [Pain] -Is Patient Pain Free? Yes - Nurse 3 - General Ulcer D/C NN Start: 09/12/20 08:12 Freq: Status: Active Protocol: Activity Type Activity Date Activity User E-Sign Co-Sign Detail Recorded Client Recorded Date Recorded By Document 09/19/20 08:31 [facility] [id number] 09/19/20 08:33 [facility] 09/19/20 08:31 Wound Care Nurse 3 [Wound Dressing] #1 Right lateral lower ext -Primary Dressing Applied Aquacel Extra, Other -Other Dressing epifix per Jayne -Primary Dressing Covered/Secured Dry Gauze & with Roll Gauze, Secured with Tape -Aquacel Extra 1 Vital Signs [Pulse] -Pulse Rate (60-100 beats/min) 79 -Pulse Location Monitor [Blood Pressure] -Blood Pressure (90/60-120/80 mm Hg) 117/69 -Blood Pressure Mean (mm Hg) 85 -Source Monitor -Position Semi-Fowlers -Blood Pressure Location Right Arm Pain Scale: 0-10 Numeric [Pain] -Is Patient Pain Free? Yes - Visit Discharge [Visit Discharge Information] -Discharge Condition Stable -Ambulatory Status Ambulatory -Transportation Private Auto Musculoskeletal: No Tenderness to Palpation of Joints or Extremities Lymphatic: No Cervical, Supraclavicular, or Inguinal Adenopathy Neurological: Cranial nerves II-XII grossly intact, Neuro grossly intact Psych/Mental Status: Normal Affect, Appropriate Debridement Note Post-Debridement Measurements/Treatment RUBINA - Nurse 2 - General Ulcer CM Notes Start: 09/12/20 08:12 Freq: Status: Active Protocol: Activity Type Activity Date Activity User E-Sign Co-Sign Detail Recorded Client Recorded Date Recorded By Document 09/12/20 08:16 MW [id number] 09/12/20 08:23 MW Document 09/19/20 08:17 MW [id number] 09/19/20 08:21 MW 09/12/20 09/19/20 08:16 08:17 Wound Center Nurse 2 #1 Right lateral lower ext -Time 08:18 08:20 -Correct Patient Yes Yes -Correct Side, Site, Position Yes Yes -Correct Procedure Yes Yes -Procedure Performed Yes Yes -Type of Procedure Debridement Debridement -Clinical Debridement Subcutaneous Subcutaneous -Tissue Removed Subcutaneous Subcutaneous -Post Debridement (cm) - Length 1.6 1.1 -Post Debridement (cm) - Width 0.6 0.5 -Post Debridement (cm) - Depth 0.2 0.2 -Total Square (Post) (cm) 0.96 0.55 -Area of Debridement (cm) - Length 1.6 1.1 -Area of Debridement (cm) - Width 0.6 0.5 -Total Square (Area) (cm) 0.96 0.55 -Tunneling No No -Undermining/Tunneling No No -Circular Undermining No No -Wound/Ulcer Outcome Not Healed Not Healed -Ulcer Cleansing Rinsed/ Rinsed/ Irrigated with Irrigated with Saline Saline -Foul Odor after Cleansing No No -Bioengineered Tissue Yes Yes -Type of Bioengineered Tissue Epifix 18mm Epifix 18mm Disc Disc -Expiration Date 04/09/25 04/09/25 -Product Lot Number [id number] -Percent Used 100 100 -Saline Lot Number [id number] -Bleeding Controlled with Pressure Pressure -Offloading No No -Debridement - Subq, 1st 20sq cm No No -Apply Skin Sub - 1st 25 sq cm - Legs 1 1 -Epifix 18mm Disc 3 3 Query Text:18mm = 3 Pain Scale: 0-10 Numeric Is Patient Pain Free? Yes Yes WC - Nurse 3 - General Ulcer D/C NN Start: 09/12/20 08:12 Freq: Status: Active Protocol: Activity Type Activity Date Activity User E-Sign Co-Sign Detail Recorded Client Recorded Date Recorded By Document 09/12/20 08:23 MW [id number] 09/12/20 08:24 MW Document 09/19/20 08:31 BM [id number] 09/19/20 08:33 [facility] 09/12/20 09/19/20 08:23 08:31 Wound Care Nurse 3 #1 Right lateral lower ext -Ulcer Cleansing Not Cleansed -Foul Odor after Cleansing No -Negative Pressure Wound Therapy N/A -Primary Dressing Applied Aquacel Extra Aquacel Extra, Other -Other Dressing epifix per Jayne -Primary Dressing Covered/Secured with Dry Gauze & Dry Gauze & Roll Gauze, Roll Gauze, Secured with Secured with Tape Tape -Aquacel Extra 1 1 Treatment Response Procedure Tolerated Well Vital Signs Pulse Rate (60-100 beats/min) 79 Pulse Location Monitor Blood Pressure (90/60-120/80 mm Hg) 117/69 Blood Pressure Mean (mm Hg) 85 Source Monitor Position Semi-Fowlers Blood Pressure Location Right Arm Pain Scale: 0-10 Numeric Is Patient Pain Free? Yes Teaching: Wound Center Dressing Your Wound -Person Taught Patient -Teaching Method Discussion, Demonstration -Response to teaching Verbalize understanding WC - Visit Discharge Discharge Condition Stable Stable Ambulatory Status Ambulatory Ambulatory Transportation Private Auto Private Auto Accompanied by SELF Medication Reconcilliation completed & No provided to patient/care provider Clinical Summary of Care Provided Yes Wound debrided: Right lateral wound dehisced Type of Debridement: Excisional debridement Depth: Down to and including healthy tissue Instrument Used: 5mm curette Tissue Removed: Devitalized tissue Severity: Limited To Skin Breakdown Amount of bleeding with debridement: None Bleeding Controlled with: Pressure Patient tolerated procedure well Assessment/Plan Active Problems Restless leg syndrome (Chronic) Non-healing surgical wound (Acute) Wound dehiscence, surgical (Acute) PAD (peripheral artery disease) (Chronic) Assessment: Fracture left ankle with hardware. Nonhealing dehisced surgical wound left lateral ankle. Chronic nonhealing surgical wound Plan: Applied epi fix #6 with with Adaptic gentle and Steri-Strips Aquacel over top tolerated well. Continue to keep dry and no dressing changes. Follow-up in 1 week
[2020-09-26 08:08] VITALS: BP 120/76; PULSE 88; TEMP 36.9; BMI 22.6
--- NOTE | 2020-09-26 09:06 | PCM.WC.PN ---
(1) Non-healing surgical wound Status: Acute Qualifiers: Encounter type: subsequent encounter Code(s): T81.89XA - Other complications of procedures, not elsewhere classified, initial encounter (2) Wound dehiscence, surgical Status: Acute Qualifiers: Encounter type: subsequent encounter Code(s): T81.31XA - Disruption of external operation (surgical) wound, not elsewhere classified, initial encounter (3) PAD (peripheral artery disease) Status: Chronic Code(s): I73.9 - Peripheral vascular disease, unspecified (4) Restless leg syndrome Status: Chronic Code(s): G25.81 - Restless legs syndrome Type of Wound Date of Service: 09/26/20 Chief Complaint: Follow-up on dehisced surgical wound of right lateral lower leg History of Wound: 65-year-old white female that had surgery for a fractured ankle back in April 2020 had screws and and metal placed in the wound. Patient then dehisced and her orthopedic surgeon has been using Silvadene cream to close her. He she is also on doxycycline and he referred her to the wound clinic. Patient states she suffers from restless legs and she gets up in the night and falls frequently. Did receive her arterial brachial study and it shows she has severe PAD Progress of Wound: The measurements are slightly smaller and she is feeling in from the sides building new tissue from the epifix. The pain is better tolerating treatment well #7 epi applied today. No sign of infection noted. No maceration around the edges we will continue applying Aquacel to the Steri-Strips on top to absorb any drainage - Physical Exam Vital Signs Temp Pulse Resp BP 98.4 F 88 16 120/76 09/26/20 08:08 09/26/20 08:08 09/19/20 08:01 09/26/20 08:08 General: Oriented x3, Cooperative, Well developed HEENT: Atraumatic, PERRLA Oral: Moist Mucosa Neck: Supple, No JVD Lungs: Clear to auscultation, Normal air movement Cardiovascular: Regular rate, Regular Rhythm Abdomen: Bowel Sounds Present, Soft, Non Tender, No Hepato-splenomegaly Extremities: No clubbing, No edema Wound Measurements and Assessment WC - Nurse 1 - General Ulcer Measurement Start: 09/12/20 08:12 Freq: Status: Active Protocol: Activity Type Activity Date Activity User E-Sign Co-Sign Detail Recorded Client Recorded Date Recorded By Document 09/26/20 08:08 KR [id number] 09/26/20 08:17 KR 09/26/20 08:08 Wound Center Nurse 1 [Ulcer Assessment] #1 Right lateral lower ext -Combined with other wound No -Current Size (cm) - Length 1.4 -Current Size (cm) - Width 0.5 -Current Size (cm) - Depth 0.1 -Total Square Cm 0.70 -Photo Taken No -Exudate Amt Small -Exudate Type Serosanguineous -Wound Margin Distinct, Outline Attached -Granulation Amt Small (1-33%) -Granulation Quality Red -Necrosis Amt Small (1-33%) -Necrotic Tissue Type Adherent Slough -Texture (Norma-wound Skin Appearance) Assessed, Scarring -Moisture (Norma-wound Skin Appearance Assessed ) -Color (Norma-wound Skin Appearance) No Abnormality -Temperature (Norma-wound Skin No Abnormality Appearance) (Pt Warm) -Tenderness on Palpation (Norma-wound No Skin Appearance) -Ulcer Cleansing Rinsed/ Irrigated with Saline -Foul Odor after Cleansing No -Anesthetic Used 5% Lidocaine Gel WC - Nurse 2 - General Ulcer CM Notes Start: 09/12/20 08:12 Freq: Status: Active Protocol: Activity Type Activity Date Activity User E-Sign Co-Sign Detail Recorded Client Recorded Date Recorded By Document 09/26/20 08:27 MW [id number] 09/26/20 08:38 MW 09/26/20 08:27 Wound Center Nurse 2 [Procedure/Treatment] -Time 08:28 -Correct Patient Yes -Correct Side, Site, Position Yes -Correct Procedure Yes -Procedure Performed Yes -Type of Procedure Debridement -Clinical Debridement Subcutaneous -Tissue Removed Subcutaneous -Post Debridement (cm) - Length 1.4 -Post Debridement (cm) - Width 0.4 -Post Debridement (cm) - Depth 0.2 -Total Square (Post) (cm) 0.56 -Area of Debridement (cm) - Length 1.4 -Area of Debridement (cm) - Width 0.4 -Total Square (Area) (cm) 0.56 -Tunneling No -Undermining/Tunneling No -Circular Undermining No -Wound/Ulcer Outcome Not Healed -Ulcer Cleansing Rinsed/ Irrigated with Saline -Foul Odor after Cleansing No -Bioengineered Tissue Yes -Type of Bioengineered Tissue Epifix 18mm Disc -Expiration Date 07/10/25 -Product Lot Number [id number] -Percent Used 100 -Saline Lot Number [id number] -Bleeding Controlled with Pressure -Offloading No -Treatment Response Procedure Tolerated Well -Debridement - Subq, 1st 20sq cm No -Apply Skin Sub - 1st 25 sq cm - Legs 1 -Epifix 18mm Disc 3 Query Text:18mm = 3 [See Physician Procedure note for Specifics] Pain Scale: 0-10 Numeric [Pain] -Is Patient Pain Free? Yes - Nurse 3 - General Ulcer D/C NN Start: 09/12/20 08:12 Freq: Status: Active Protocol: Activity Type Activity Date Activity User E-Sign Co-Sign Detail Recorded Client Recorded Date Recorded By Document 09/26/20 08:55 KR [id number] 09/26/20 08:55 KR 09/26/20 08:55 Wound Care Nurse 3 [Wound Dressing] #1 Right lateral lower ext -Ulcer Cleansing Rinsed/ Irrigated with Saline -Foul Odor after Cleansing No -Negative Pressure Wound Therapy N/A -Primary Dressing Covered/Secured Dry Gauze & with Roll Gauze Pain Scale: 0-10 Numeric [Pain] -Is Patient Pain Free? Yes - Visit Discharge [Visit Discharge Information] -Discharge Condition Stable -Ambulatory Status Ambulatory -Transportation Private Auto Musculoskeletal: No Tenderness to Palpation of Joints or Extremities Lymphatic: No Cervical, Supraclavicular, or Inguinal Adenopathy Neurological: Cranial nerves II-XII grossly intact, Neuro grossly intact Psych/Mental Status: Normal Affect, Appropriate, Alert and oriented to time, place, person, mood and affect Debridement Note Post-Debridement Measurements/Treatment - Nurse 2 - General Ulcer CM Notes Start: 09/12/20 08:12 Freq: Status: Active Protocol: Activity Type Activity Date Activity User E-Sign Co-Sign Detail Recorded Client Recorded Date Recorded By Document 09/12/20 08:16 MW [id number] 09/12/20 08:23 MW Document 09/19/20 08:17 MW [id number] 09/19/20 08:21 MW Document 09/26/20 08:27 MW [id number] 09/26/20 08:38 MW 11/04/20 11/11/20 11/18/20 08:16 08:17 08:27 Wound Center Nurse 2 #1 Right lateral lower ext -Time 08:18 08:20 08:28 -Correct Patient Yes Yes Yes -Correct Side, Site, Position Yes Yes Yes -Correct Procedure Yes Yes Yes -Procedure Performed Yes Yes Yes -Type of Procedure Debridement Debridement Debridement -Clinical Debridement Subcutaneous Subcutaneous Subcutaneous -Tissue Removed Subcutaneous Subcutaneous Subcutaneous -Post Debridement (cm) - Length 1.6 1.1 1.4 -Post Debridement (cm) - Width 0.6 0.5 0.4 -Post Debridement (cm) - Depth 0.2 0.2 0.2 -Total Square (Post) (cm) 0.96 0.55 0.56 -Area of Debridement (cm) - Length 1.6 1.1 1.4 -Area of Debridement (cm) - Width 0.6 0.5 0.4 -Total Square (Area) (cm) 0.96 0.55 0.56 -Tunneling No No No -Undermining/Tunneling No No No -Circular Undermining No No No -Wound/Ulcer Outcome Not Healed Not Healed Not Healed -Ulcer Cleansing Rinsed/ Rinsed/ Rinsed/ Irrigated with Irrigated with Irrigated with Saline Saline Saline -Foul Odor after Cleansing No No No -Bioengineered Tissue Yes Yes Yes -Type of Bioengineered Tissue Epifix 18mm Epifix 18mm Epifix 18mm Disc Disc Disc -Expiration Date 04/09/25 04/09/25 07/10/25 -Product Lot Number [id number] -Percent Used 100 100 100 -Saline Lot Number [id number] -Bleeding Controlled with Pressure Pressure Pressure -Offloading No No No -Treatment Response Procedure Tolerated Well -Debridement - Subq, 1st 20sq cm No No No -Apply Skin Sub - 1st 25 sq cm - Legs 1 1 1 -Epifix 18mm Disc 3 3 3 Query Text:18mm = 3 Pain Scale: 0-10 Numeric Is Patient Pain Free? Yes Yes Yes - Nurse 3 - General Ulcer D/C NN Start: 09/12/20 08:12 Freq: Status: Active Protocol: Activity Type Activity Date Activity User E-Sign Co-Sign Detail Recorded Client Recorded Date Recorded By Document 09/12/20 08:23 MW [id number] 09/12/20 08:24 MW Document 09/19/20 08:31 [facility] [id number] 09/19/20 08:33 BMF Document 09/26/20 08:55 KR [id number] 09/26/20 08:55 KR 09/12/20 09/19/20 09/26/20 08:23 08:31 08:55 Wound Care Nurse 3 #1 Right lateral lower ext -Ulcer Cleansing Not Cleansed Rinsed/ Irrigated with Saline -Foul Odor after Cleansing No No -Negative Pressure Wound Therapy N/A N/A -Primary Dressing Applied Aquacel Extra Aquacel Extra, Other -Other Dressing epifix per Jayne -Primary Dressing Covered/Secured with Dry Gauze & Dry Gauze & Dry Gauze & Roll Gauze, Roll Gauze, Roll Gauze Secured with Secured with Tape Tape -Aquacel Extra 1 1 Treatment Response Procedure Tolerated Well Vital Signs Pulse Rate (60-100 beats/min) 79 Pulse Location Monitor Blood Pressure (90/60-120/80 mm Hg) 117/69 Blood Pressure Mean (mm Hg) 85 Source Monitor Position Semi-Fowlers Blood Pressure Location Right Arm Pain Scale: 0-10 Numeric Is Patient Pain Free? Yes Yes Teaching: Wound Center Dressing Your Wound -Person Taught Patient -Teaching Method Discussion, Demonstration -Response to teaching Verbalize understanding WC - Visit Discharge Discharge Condition Stable Stable Stable Ambulatory Status Ambulatory Ambulatory Ambulatory Transportation Private Auto Private Auto Private Auto Accompanied by SELF Medication Reconcilliation completed & No provided to patient/care provider Clinical Summary of Care Provided Yes Wound debrided: Right lateral ankle dehisced wound Type of Debridement: Excisional debridement Anesthesia Used: 5% Lidocaine Gel Depth: Down to and including healthy tissue, in the subcutaneous layer Percentage of wound debrided: 100 Instrument Used: 3mm curette Tissue Removed: Callus Severity: Limited To Skin Breakdown Amount of bleeding with debridement: None Bleeding Controlled with: Pressure Patient tolerated procedure well Assessment/Plan Active Problems Restless leg syndrome (Chronic) Non-healing surgical wound (Acute) Wound dehiscence, surgical (Acute) PAD (peripheral artery disease) (Chronic) Assessment: Fracture left ankle with hardware. Nonhealing dehisced surgical wound left lateral ankle. Chronic nonhealing surgical wound Plan: Applied epi fix #7 with with Adaptic gentle and Steri-Strips Aquacel over top tolerated well. Continue to keep dry and no dressing changes. Follow-up in 1 week
[2020-10-03 08:01] VITALS: BP 149/75; PULSE 86; TEMP 36.4; BMI 22.6
--- NOTE | 2020-10-03 10:26 | PN.PCM_ITS ---
(1) Non-healing surgical wound Status: Acute Qualifiers: Encounter type: subsequent encounter Code(s): T81.89XA - Other complications of procedures, not elsewhere classified, initial encounter (2) Wound dehiscence, surgical Status: Acute Qualifiers: Encounter type: subsequent encounter Code(s): T81.31XA - Disruption of external operation (surgical) wound, not elsewhere classified, initial encounter (3) PAD (peripheral artery disease) Status: Chronic Code(s): I73.9 - Peripheral vascular disease, unspecified (4) Restless leg syndrome Status: Chronic Code(s): G25.81 - Restless legs syndrome Type of Wound Date of Service: 10/03/20 Chief Complaint: Follow-up on dehisced surgical wound of right lateral lower leg History of Wound: 65-year-old white female that had surgery for a fractured ankle back in April 2020 had screws and and metal placed in the wound. Patient then dehisced and her orthopedic surgeon has been using Silvadene cream to close her. He she is also on doxycycline and he referred her to the wound clinic. Patient states she suffers from restless legs and she gets up in the night and falls frequently. Did receive her arterial brachial study and it shows she has severe PAD Progress of Wound: The measurements are slightly smaller and she is feeling in from the sides building new tissue from the epifix. The pain is better tolerating treatment well #8 epi applied today. No sign of infection noted. No maceration around the edges we will continue applying Aquacel to the Steri- Strips on top to absorb any drainage - Physical Exam Vital Signs Temp Pulse Resp BP 97.6 F L 86 16 149/75 H 10/03/20 08:01 10/03/20 08:01 09/19/20 08:01 10/03/20 08:01 General: Oriented x3, Cooperative, Well developed HEENT: Atraumatic, PERRLA Oral: Moist Mucosa Neck: Supple, No JVD Lungs: Clear to auscultation, Normal air movement Cardiovascular: Regular rate, Regular Rhythm Abdomen: Bowel Sounds Present, Soft, Non Tender, No Hepato-splenomegaly Extremities: No clubbing, No edema Wound Measurements and Assessment WC - Nurse 1 - General Ulcer Measurement Start: 09/12/20 08:12 Freq: Status: Active Protocol: Activity Type Activity Date Activity User E-Sign Co-Sign Detail Recorded Client Recorded Date Recorded By Document 10/03/20 08:01 KR [id number] 10/03/20 08:09 KR 10/03/20 08:01 Wound Center Nurse 1 [Ulcer Assessment] #1 Right lateral lower ext -Current Size (cm) - Length 1 -Current Size (cm) - Width 0.3 -Current Size (cm) - Depth 0.1 -Total Square Cm 0.3 -Exudate Amt None Present -Wound Margin Distinct, Outline Attached -Granulation Amt Small (1-33%) -Granulation Quality Hyper- granulation -Necrosis Amt Small (1-33%) -Necrotic Tissue Type Adherent Slough -Texture (Norma-wound Skin Appearance) Assessed, Scarring -Moisture (Norma-wound Skin Appearance No Abnormality, ) Assessed -Color (Norma-wound Skin Appearance) No Abnormality, Assessed -Temperature (Norma-wound Skin No Abnormality Appearance) (Pt Warm) -Tenderness on Palpation (Norma-wound No Skin Appearance) -Ulcer Cleansing Rinsed/ Irrigated with Saline -Foul Odor after Cleansing No -Anesthetic Used 4% Lidocaine Solution WC - Nurse 2 - General Ulcer CM Notes Start: 09/12/20 08:12 Freq: Status: Active Protocol: Activity Type Activity Date Activity User E-Sign Co-Sign Detail Recorded Client Recorded Date Recorded By Document 10/03/20 08:24 MW [id number] 10/03/20 08:32 MW 10/03/20 08:24 Wound Center Nurse 2 [Procedure/Treatment] -Time 08:24 -Correct Patient Yes -Correct Side, Site, Position Yes -Correct Procedure Yes -Procedure Performed Yes -Type of Procedure Debridement -Clinical Debridement Subcutaneous -Tissue Removed Subcutaneous -Post Debridement (cm) - Length 1.3 -Post Debridement (cm) - Width 0.4 -Post Debridement (cm) - Depth 0.2 -Total Square (Post) (cm) 0.52 -Area of Debridement (cm) - Length 1.3 -Area of Debridement (cm) - Width 0.4 -Total Square (Area) (cm) 0.52 -Tunneling No -Undermining/Tunneling No -Circular Undermining No -Wound/Ulcer Outcome Not Healed -Ulcer Cleansing Rinsed/ Irrigated with Saline -Foul Odor after Cleansing No -Bioengineered Tissue Yes -Type of Bioengineered Tissue Epifix 18mm Disc -Expiration Date 07/10/25 -Product Lot Number [id number] -Percent Used 100 -Saline Lot Number [id number] -Bleeding Controlled with Pressure -Offloading No -Treatment Response Procedure Tolerated Well -Debridement - Subq, 1st 20sq cm No -Apply Skin Sub - 1st 25 sq cm - Legs 1 -Epifix 18mm Disc 3 Query Text:18mm = 3 [See Physician Procedure note for Specifics] Pain Scale: 0-10 Numeric [Pain] -Is Patient Pain Free? Yes - Nurse 3 - General Ulcer D/C NN Start: 09/12/20 08:12 Freq: Status: Active Protocol: Activity Type Activity Date Activity User E-Sign Co-Sign Detail Recorded Client Recorded Date Recorded By Document 10/03/20 08:57 PL [id number] 10/03/20 08:58 PL 10/03/20 08:57 Wound Care Nurse 3 [Wound Dressing] #1 Right lateral lower ext -Ulcer Cleansing Rinsed/ Irrigated with Saline -Foul Odor after Cleansing No -Primary Dressing Applied Aquacel Extra -Primary Dressing Covered/Secured Dry Gauze & with Roll Gauze, Secured with Tape -Aquacel Extra 1 Pain Scale: 0-10 Numeric [Pain] -Is Patient Pain Free? Yes - Visit Discharge [Visit Discharge Information] -Discharge Condition Stable -Ambulatory Status Ambulatory -Clinical Summary of Care Provided Yes Musculoskeletal: No Tenderness to Palpation of Joints or Extremities Lymphatic: No Cervical, Supraclavicular, or Inguinal Adenopathy Neurological: Cranial nerves II-XII grossly intact, Neuro grossly intact Psych/Mental Status: Normal Affect, Appropriate Debridement Note Post-Debridement Measurements/Treatment - Nurse 2 - General Ulcer CM Notes Start: 09/12/20 08:12 Freq: Status: Active Protocol: Activity Type Activity Date Activity User E-Sign Co-Sign Detail Recorded Client Recorded Date Recorded By Document 09/12/20 08:16 MW [id number] 09/12/20 08:23 MW Document 09/19/20 08:17 MW [id number] 09/19/20 08:21 MW Document 09/26/20 08:27 MW [id number] 09/26/20 08:38 MW Document 10/03/20 08:24 MW [id number] 10/03/20 08:32 MW 09/12/20 09/19/20 09/26/20 08:16 08:17 08:27 Wound Center Nurse 2 #1 Right lateral lower ext -Time 08:18 08:20 08:28 -Correct Patient Yes Yes Yes -Correct Side, Site, Position Yes Yes Yes -Correct Procedure Yes Yes Yes -Procedure Performed Yes Yes Yes -Type of Procedure Debridement Debridement Debridement -Clinical Debridement Subcutaneous Subcutaneous Subcutaneous -Tissue Removed Subcutaneous Subcutaneous Subcutaneous -Post Debridement (cm) - Length 1.6 1.1 1.4 -Post Debridement (cm) - Width 0.6 0.5 0.4 -Post Debridement (cm) - Depth 0.2 0.2 0.2 -Total Square (Post) (cm) 0.96 0.55 0.56 -Area of Debridement (cm) - Length 1.6 1.1 1.4 -Area of Debridement (cm) - Width 0.6 0.5 0.4 -Total Square (Area) (cm) 0.96 0.55 0.56 -Tunneling No No No -Undermining/Tunneling No No No -Circular Undermining No No No -Wound/Ulcer Outcome Not Healed Not Healed Not Healed -Ulcer Cleansing Rinsed/ Rinsed/ Rinsed/ Irrigated with Irrigated with Irrigated with Saline Saline Saline -Foul Odor after Cleansing No No No -Bioengineered Tissue Yes Yes Yes -Type of Bioengineered Tissue Epifix 18mm Epifix 18mm Epifix 18mm Disc Disc Disc -Expiration Date 04/09/25 04/09/25 07/10/25 -Product Lot Number [id number] -Percent Used 100 100 100 -Saline Lot Number [id number] -Bleeding Controlled with Pressure Pressure Pressure -Offloading No No No -Treatment Response Procedure Tolerated Well -Debridement - Subq, 1st 20sq cm No No No -Apply Skin Sub - 1st 25 sq cm - Legs 1 1 1 -Epifix 18mm Disc 3 3 3 Query Text:18mm = 3 Pain Scale: 0-10 Numeric Is Patient Pain Free? Yes Yes Yes 10/03/20 08:24 Wound Center Nurse 2 #1 Right lateral lower ext -Time 08:24 -Correct Patient Yes -Correct Side, Site, Position Yes -Correct Procedure Yes -Procedure Performed Yes -Type of Procedure Debridement -Clinical Debridement Subcutaneous -Tissue Removed Subcutaneous -Post Debridement (cm) - Length 1.3 -Post Debridement (cm) - Width 0.4 -Post Debridement (cm) - Depth 0.2 -Total Square (Post) (cm) 0.52 -Area of Debridement (cm) - Length 1.3 -Area of Debridement (cm) - Width 0.4 -Total Square (Area) (cm) 0.52 -Tunneling No -Undermining/Tunneling No -Circular Undermining No -Wound/Ulcer Outcome Not Healed -Ulcer Cleansing Rinsed/ Irrigated with Saline -Foul Odor after Cleansing No -Bioengineered Tissue Yes -Type of Bioengineered Tissue Epifix 18mm Disc -Expiration Date 07/10/25 -Product Lot Number [id number] -Percent Used 100 -Saline Lot Number [id number] -Bleeding Controlled with Pressure -Offloading No -Treatment Response Procedure Tolerated Well -Debridement - Subq, 1st 20sq cm No -Apply Skin Sub - 1st 25 sq cm - Legs 1 -Epifix 18mm Disc 3 Query Text:18mm = 3 Pain Scale: 0-10 Numeric Is Patient Pain Free? Yes WC - Nurse 3 - General Ulcer D/C NN Start: 09/12/20 08:12 Freq: Status: Active Protocol: Activity Type Activity Date Activity User E-Sign Co-Sign Detail Recorded Client Recorded Date Recorded By Document 09/12/20 08:23 MW [id number] 09/12/20 08:24 MW Document 09/19/20 08:31 [facility] [id number] 09/19/20 08:33 BMF Document 09/26/20 08:55 KR [id number] 09/26/20 08:55 KR Document 10/03/20 08:57 PL [id number] 10/03/20 08:58 PL 09/12/20 09/19/20 09/26/20 08:23 08:31 08:55 Wound Care Nurse 3 #1 Right lateral lower ext -Ulcer Cleansing Not Cleansed Rinsed/ Irrigated with Saline -Foul Odor after Cleansing No No -Negative Pressure Wound Therapy N/A N/A -Primary Dressing Applied Aquacel Extra Aquacel Extra, Other -Other Dressing epifix per Jayne -Primary Dressing Covered/Secured with Dry Gauze & Dry Gauze & Dry Gauze & Roll Gauze, Roll Gauze, Roll Gauze Secured with Secured with Tape Tape -Aquacel Extra 1 1 Treatment Response Procedure Tolerated Well Vital Signs Pulse Rate (60-100 beats/min) 79 Pulse Location Monitor Blood Pressure (90/60-120/80 mm Hg) 117/69 Blood Pressure Mean (mm Hg) 85 Source Monitor Position Semi-Fowlers Blood Pressure Location Right Arm Pain Scale: 0-10 Numeric Is Patient Pain Free? Yes Yes Teaching: Wound Center Dressing Your Wound -Person Taught Patient -Teaching Method Discussion, Demonstration -Response to teaching Verbalize understanding WC - Visit Discharge Discharge Condition Stable Stable Stable Ambulatory Status Ambulatory Ambulatory Ambulatory Transportation Private Auto Private Auto Private Auto Accompanied by SELF Medication Reconcilliation completed & No provided to patient/care provider Clinical Summary of Care Provided Yes 10/03/20 08:57 Wound Care Nurse 3 #1 Right lateral lower ext -Ulcer Cleansing Rinsed/ Irrigated with Saline -Foul Odor after Cleansing No -Negative Pressure Wound Therapy -Primary Dressing Applied Aquacel Extra -Other Dressing -Primary Dressing Covered/Secured with Dry Gauze & Roll Gauze, Secured with Tape -Aquacel Extra 1 Treatment Response Vital Signs Pulse Rate (60-100 beats/min) Pulse Location Blood Pressure (90/60-120/80 mm Hg) Blood Pressure Mean (mm Hg) Source Position Blood Pressure Location Pain Scale: 0-10 Numeric Is Patient Pain Free? Yes Teaching: Wound Center Dressing Your Wound -Person Taught -Teaching Method -Response to teaching WC - Visit Discharge Discharge Condition Stable Ambulatory Status Ambulatory Transportation Accompanied by Medication Reconcilliation completed & provided to patient/care provider Clinical Summary of Care Provided Yes Wound debrided: Ankle Laterality: Right Type of Debridement: Excisional debridement Anesthesia Used: 5% Lidocaine Gel Depth: Down to and including healthy tissue, in the subcutaneous layer Percentage of wound debrided: 100 Instrument Used: 3mm curette Tissue Removed: Fibrin Severity: Limited To Skin Breakdown Amount of bleeding with debridement: None Bleeding Controlled with: Pressure Patient tolerated procedure well Assessment/Plan Active Problems Restless leg syndrome (Chronic) Non-healing surgical wound (Acute) Wound dehiscence, surgical (Acute) PAD (peripheral artery disease) (Chronic) Assessment: Fracture left ankle with hardware. Nonhealing dehisced surgical wound left lateral ankle. Chronic nonhealing surgical wound Plan: Applied epi fix #8 with with Adaptic gentle and Steri-Strips Aquacel over top tolerated well. Continue to keep dry and no dressing changes. Follow-up in 1 week
== END 2020-10-08 23:59 ==
LOC: WC 08:00
PROVIDERS: PCP Nurse Practitioner Family; Referring Provider Podiatrist Foot & Ankle Surgery; Visit Provider Nurse Practitioner
DX: T81.31XA Disruption of external operation (surgical) wound, not elsewhere classified, initial encounter (principal); I73.9 Peripheral vascular disease, unspecified; G25.81 Restless legs syndrome; R29.6 Repeated falls
CPT/HCPCS: 15271; Q4186

== ENCOUNTER 2020-10-24 08:00 | Outpatient (RCR) | payer MEDICARE, SELFPAY ==
[2020-10-09 00:29] VITALS: BP 149/75; PULSE 86; RESP 16; TEMP 36.4
[2020-10-17 08:06] VITALS: BP 92/65; PULSE 83; TEMP 35.6; BMI 22.6
--- NOTE | 2020-10-17 08:38 | PN.PCM_ITS ---
(1) Non-healing surgical wound Status: Acute Qualifiers: Encounter type: subsequent encounter Code(s): T81.89XA - Other complications of procedures, not elsewhere classified, initial encounter (2) Wound dehiscence, surgical Status: Acute Qualifiers: Encounter type: subsequent encounter Code(s): T81.31XA - Disruption of external operation (surgical) wound, not elsewhere classified, initial encounter (3) PAD (peripheral artery disease) Status: Chronic Code(s): I73.9 - Peripheral vascular disease, unspecified Type of Wound Date of Service: 10/17/20 Chief Complaint: Follow-up on dehisced surgical wound of right lateral lower leg History of Wound: 65-year-old white female that had surgery for a fractured ankle back in April 2020 had screws and and metal placed in the wound. Patient then dehisced and her orthopedic surgeon has been using Silvadene cream to close her. He she is also on doxycycline and he referred her to the wound clinic. Patient states she suffers from restless legs and she gets up in the night and falls frequently. Did receive her arterial brachial study and it shows she has severe PAD Progress of Wound: The measurements are slightly smaller and she is feeling in from the sides building new tissue from the epifix. The pain is better tolerating treatment well #9 epi applied today. No sign of infection noted. No maceration around the edges we will continue applying Aquacel to the Steri- Strips on top to absorb any drainage. - Physical Exam Vital Signs Temp Pulse Resp BP 96.0 F L 83 16 92/65 10/17/20 08:06 10/17/20 08:06 10/09/20 00:29 10/17/20 08:06 General: Oriented x3, Cooperative, Well developed HEENT: Atraumatic, PERRLA Oral: Moist Mucosa Neck: Supple, No JVD Lungs: Clear to auscultation, Normal air movement Cardiovascular: Regular rate, Regular Rhythm Abdomen: Bowel Sounds Present, Soft, Non Tender, No Hepato-splenomegaly Extremities: No clubbing, No edema Skin: No breakdown - Dehisced surgical wound from a ankle fracture Wound Measurements and Assessment WC - Nurse 1 - General Ulcer Measurement Start: 10/17/20 08:06 Freq: Status: Active Protocol: Activity Type Activity Date Activity User E-Sign Co-Sign Detail Recorded Client Recorded Date Recorded By Document 10/17/20 08:06 KR [id number] 10/17/20 08:09 KR 10/17/20 08:06 Wound Center Nurse 1 [Ulcer Assessment] #1 Right lateral lower ext -Current Size (cm) - Length 1.4 -Current Size (cm) - Width 0.4 -Current Size (cm) - Depth 0.1 -Total Square Cm 0.56 -Exudate Amt None Present -Wound Margin Distinct, Outline Attached -Granulation Amt None Present (0 %) -Slough/Fibrin Yes -Necrosis Amt Large (67-100%) -Necrotic Tissue Type Adherent Slough -Texture (Norma-wound Skin Appearance) Assessed, Scarring -Moisture (Norma-wound Skin Appearance No Abnormality ) -Color (Norma-wound Skin Appearance) No Abnormality -Temperature (Norma-wound Skin No Abnormality Appearance) (Pt Warm) -Tenderness on Palpation (Norma-wound No Skin Appearance) -Ulcer Cleansing Rinsed/ Irrigated with Saline -Foul Odor after Cleansing No -Anesthetic Used 5% Lidocaine Gel WC - Nurse 2 - General Ulcer CM Notes Start: 10/17/20 08:06 Freq: Status: Active Protocol: Activity Type Activity Date Activity User E-Sign Co-Sign Detail Recorded Client Recorded Date Recorded By Document 10/17/20 08:17 MW [id number] 10/17/20 08:28 MW 10/17/20 08:17 Wound Center Nurse 2 [Procedure/Treatment] -Time 08:20 -Correct Patient Yes -Correct Side, Site, Position Yes -Correct Procedure Yes -Procedure Performed Yes -Type of Procedure Debridement -Clinical Debridement Subcutaneous -Tissue Removed Subcutaneous -Post Debridement (cm) - Length 0.7 -Post Debridement (cm) - Width 0.3 -Post Debridement (cm) - Depth 0.1 -Total Square (Post) (cm) 0.21 -Area of Debridement (cm) - Length 0.7 -Area of Debridement (cm) - Width 0.3 -Total Square (Area) (cm) 0.21 -Tunneling No -Undermining/Tunneling No -Circular Undermining No -Wound/Ulcer Outcome Not Healed -Ulcer Cleansing Rinsed/ Irrigated with Saline -Foul Odor after Cleansing No -Bioengineered Tissue Yes -Type of Bioengineered Tissue Epifix 18mm Disc -Expiration Date 07/10/25 -Product Lot Number [id number] -Percent Used 100 -Saline Lot Number [id number] -Bleeding Controlled with Pressure -Offloading No -Treatment Response Procedure Tolerated Well -Debridement - Subq, 1st 20sq cm No -Apply Skin Sub - 1st 25 sq cm - Legs 1 -Epifix 18mm Disc 3 Query Text:18mm = 3 [See Physician Procedure note for Specifics] Pain Scale: 0-10 Numeric [Pain] -Is Patient Pain Free? Yes - Nurse 3 - General Ulcer D/C NN Start: 10/17/20 08:06 Freq: Status: Active Protocol: Activity Type Activity Date Activity User E-Sign Co-Sign Detail Recorded Client Recorded Date Recorded By Document 10/17/20 08:30 KR [id number] 10/17/20 08:31 KR 10/17/20 08:30 Wound Care Nurse 3 [Wound Dressing] #1 Right lateral lower ext -Foul Odor after Cleansing No -Negative Pressure Wound Therapy N/A -Primary Dressing Applied Aquacel Extra -Primary Dressing Covered/Secured Dry Gauze & with Roll Gauze -Aquacel Extra 1 Pain Scale: 0-10 Numeric [Pain] -Is Patient Pain Free? Yes - Visit Discharge [Visit Discharge Information] -Discharge Condition Stable -Ambulatory Status Ambulatory -Transportation Private Auto Musculoskeletal: No Tenderness to Palpation of Joints or Extremities Lymphatic: No Cervical, Supraclavicular, or Inguinal Adenopathy Neurological: Cranial nerves II-XII grossly intact, Neuro grossly intact Psych/Mental Status: Normal Affect, Appropriate Debridement Note Post-Debridement Measurements/Treatment - Nurse 2 - General Ulcer CM Notes Start: 10/17/20 08:06 Freq: Status: Active Protocol: Activity Type Activity Date Activity User E-Sign Co-Sign Detail Recorded Client Recorded Date Recorded By Document 10/17/20 08:17 MW [id number] 10/17/20 08:28 MW 10/17/20 08:17 Wound Center Nurse 2 #1 Right lateral lower ext -Time 08:20 -Correct Patient Yes -Correct Side, Site, Position Yes -Correct Procedure Yes -Procedure Performed Yes -Type of Procedure Debridement -Clinical Debridement Subcutaneous -Tissue Removed Subcutaneous -Post Debridement (cm) - Length 0.7 -Post Debridement (cm) - Width 0.3 -Post Debridement (cm) - Depth 0.1 -Total Square (Post) (cm) 0.21 -Area of Debridement (cm) - Length 0.7 -Area of Debridement (cm) - Width 0.3 -Total Square (Area) (cm) 0.21 -Tunneling No -Undermining/Tunneling No -Circular Undermining No -Wound/Ulcer Outcome Not Healed -Ulcer Cleansing Rinsed/ Irrigated with Saline -Foul Odor after Cleansing No -Bioengineered Tissue Yes -Type of Bioengineered Tissue Epifix 18mm Disc -Expiration Date 07/10/25 -Product Lot Number [id number] -Percent Used 100 -Saline Lot Number [id number] -Bleeding Controlled with Pressure -Offloading No -Treatment Response Procedure Tolerated Well -Debridement - Subq, 1st 20sq cm No -Apply Skin Sub - 1st 25 sq cm - Legs 1 -Epifix 18mm Disc 3 Query Text:18mm = 3 Pain Scale: 0-10 Numeric Is Patient Pain Free? Yes - Nurse 3 - General Ulcer D/C NN Start: 10/17/20 08:06 Freq: Status: Active Protocol: Activity Type Activity Date Activity User E-Sign Co-Sign Detail Recorded Client Recorded Date Recorded By Document 10/17/20 08:30 BAM [id number] 10/17/20 08:31 BAM 10/17/20 08:30 Wound Care Nurse 3 #1 Right lateral lower ext -Foul Odor after Cleansing No -Negative Pressure Wound Therapy N/A -Primary Dressing Applied Aquacel Extra -Primary Dressing Covered/Secured with Dry Gauze & Roll Gauze -Aquacel Extra 1 Pain Scale: 0-10 Numeric Is Patient Pain Free? Yes - Visit Discharge Discharge Condition Stable Ambulatory Status Ambulatory Transportation Private Auto Wound debrided: Right lateral ankle wound Type of Debridement: Excisional debridement Anesthesia Used: 5% Lidocaine Gel Depth: Down to and including healthy tissue, in the subcutaneous layer Percentage of wound debrided: 100 Instrument Used: 3mm curette Tissue Removed: Fibrin Severity: Limited To Skin Breakdown Amount of bleeding with debridement: None Bleeding Controlled with: Compression and gauze Patient tolerated procedure well Assessment/Plan Assessment: Fracture left ankle with hardware. Nonhealing dehisced surgical wound left lateral ankle. Chronic nonhealing surgical wound Plan: Applied epi fix #9 with with Adaptic gentle and Steri-Strips Aquacel over top tolerated well. Continue to keep dry and no dressing changes. Follow-up in 1 week
[2020-10-24 08:10] VITALS: BP 95/64; PULSE 92; TEMP 36.5; BMI 22.6
--- NOTE | 2020-10-24 08:37 | WC ---
dry dressing applied to healed wound . photo also taken of healed wound.
--- NOTE | 2020-10-24 08:54 | PCM.WC.PN ---
(1) Non-healing surgical wound Status: Acute Qualifiers: Encounter type: subsequent encounter Code(s): T81.89XA - Other complications of procedures, not elsewhere classified, initial encounter (2) Wound dehiscence, surgical Status: Acute Qualifiers: Encounter type: subsequent encounter Code(s): T81.31XA - Disruption of external operation (surgical) wound, not elsewhere classified, initial encounter (3) PAD (peripheral artery disease) Status: Chronic Code(s): I73.9 - Peripheral vascular disease, unspecified Type of Wound Date of Service: 10/24/20 Chief Complaint: Follow-up on dehisced surgical wound of right lateral lower leg History of Wound: 65-year-old white female that had surgery for a fractured ankle back in April 2020 had screws and and metal placed in the wound. Patient then dehisced and her orthopedic surgeon has been using Silvadene cream to close her. He she is also on doxycycline and he referred her to the wound clinic. Patient states she suffers from restless legs and she gets up in the night and falls frequently. Did receive her arterial brachial study and it shows she has severe PAD Progress of Wound: The wound is healed patient will be discharged from the wound center. - Physical Exam Vital Signs Temp Pulse Resp BP 97.7 F L 92 16 95/64 10/24/20 08:10 10/24/20 08:10 10/09/20 00:29 10/24/20 08:10 General: Oriented x3, Cooperative, Well developed HEENT: Atraumatic, PERRLA Oral: Moist Mucosa Neck: Supple, No JVD Lungs: Clear to auscultation, Normal air movement Cardiovascular: Regular rate, Regular Rhythm Abdomen: Bowel Sounds Present, Soft, Non Tender, No Hepato-splenomegaly Extremities: No clubbing, No edema Skin: Ulcer/ Wound - Healed dehisced right ankle lateral wound Wound Measurements and Assessment WC - Nurse 1 - General Ulcer Measurement Start: 10/17/20 08:06 Freq: Status: Active Protocol: Activity Type Activity Date Activity User E-Sign Co-Sign Detail Recorded Client Recorded Date Recorded By Document 10/24/20 08:10 BAM [id number] 10/24/20 08:16 KR 10/24/20 08:10 Wound Center Nurse 1 [Ulcer Assessment] #1 Right lateral lower ext -Current Size (cm) - Length 0.1 -Current Size (cm) - Width 0.1 -Current Size (cm) - Depth 0.1 -Total Square Cm 0.01 -Exudate Amt None Present -Wound Margin Distinct, Outline Attached -Granulation Amt None Present (0 %) -Necrosis Amt Large (67-100%) -Necrotic Tissue Type Adherent Slough -Texture (Norma-wound Skin Appearance) Assessed, Scarring -Moisture (Norma-wound Skin Appearance Assessed,Dry/ ) Scaly -Color (Norma-wound Skin Appearance) No Abnormality, Assessed -Temperature (Norma-wound Skin No Abnormality Appearance) (Pt Warm) -Tenderness on Palpation (Norma-wound No Skin Appearance) -Ulcer Cleansing soap and water -Foul Odor after Cleansing No -Anesthetic Used 4% Lidocaine Solution - Nurse 2 - General Ulcer CM Notes Start: 10/17/20 08:06 Freq: Status: Active Protocol: Activity Type Activity Date Activity User E-Sign Co-Sign Detail Recorded Client Recorded Date Recorded By Document 10/24/20 08:25 MW [id number] 10/24/20 08:27 MW 10/24/20 08:25 Wound Center Nurse 2 [Procedure/Treatment] -Time 08:25 -Correct Patient Yes -Correct Side, Site, Position Yes -Correct Procedure Yes -Procedure Performed No -Post Debridement (cm) - Length 0 -Post Debridement (cm) - Width 0 -Post Debridement (cm) - Depth 0 -Total Square (Post) (cm) 0 -Wound/Ulcer Outcome Healed- Epithelialized [See Physician Procedure note for Specifics] Pain Scale: 0-10 Numeric [Pain] -Is Patient Pain Free? Yes - Nurse 3 - General Ulcer D/C NN Start: 10/17/20 08:06 Freq: Status: Active Protocol: Activity Type Activity Date Activity User E-Sign Co-Sign Detail Recorded Client Recorded Date Recorded By Document 10/24/20 08:37 RB [id number] 10/24/20 08:38 RB 10/24/20 08:37 Wound Care Nurse 3 [Post Procedure Tolerated] -Treatment Response Procedure Tolerated Well Pain Scale: 0-10 Numeric [Pain] -Is Patient Pain Free? Yes Teaching: Wound Center [Wound Center Education] (Items with an * have Printed Materials Available- Please identify what is given to patient under the Teaching materials given to patient and caregiver Section. Dressing Your Wound -Person Taught Patient -Teaching Method Discussion, Demonstration -Response to teaching Verbalize understanding WC - Visit Discharge [Visit Discharge Information] -Discharge Condition Stable -Ambulatory Status Ambulatory -Transportation Private Auto -Medication Reconcilliation completed No & provided to patient/care provider -Clinical Summary of Care Provided Yes 10/24/20 08:37 Wound Center by Candice Ramirez dry dressing applied to healed wound . photo also taken of healed wound. Initialized on 10/24/20 08:37 - END OF NOTE Musculoskeletal: No Tenderness to Palpation of Joints or Extremities Lymphatic: No Cervical, Supraclavicular, or Inguinal Adenopathy Neurological: Cranial nerves II-XII grossly intact, Neuro grossly intact Psych/Mental Status: Normal Affect, Appropriate Debridement Note Post-Debridement Measurements/Treatment WC - Nurse 2 - General Ulcer CM Notes Start: 10/17/20 08:06 Freq: Status: Active Protocol: Activity Type Activity Date Activity User E-Sign Co-Sign Detail Recorded Client Recorded Date Recorded By Document 10/17/20 08:17 MW [id number] 10/17/20 08:28 MW Document 10/24/20 08:25 MW [id number] 10/24/20 08:27 MW 10/17/20 10/24/20 08:17 08:25 Wound Center Nurse 2 #1 Right lateral lower ext -Time 08:20 08:25 -Correct Patient Yes Yes -Correct Side, Site, Position Yes Yes -Correct Procedure Yes Yes -Procedure Performed Yes No -Type of Procedure Debridement -Clinical Debridement Subcutaneous -Tissue Removed Subcutaneous -Post Debridement (cm) - Length 0.7 0 -Post Debridement (cm) - Width 0.3 0 -Post Debridement (cm) - Depth 0.1 0 -Total Square (Post) (cm) 0.21 0 -Area of Debridement (cm) - Length 0.7 -Area of Debridement (cm) - Width 0.3 -Total Square (Area) (cm) 0.21 -Tunneling No -Undermining/Tunneling No -Circular Undermining No -Wound/Ulcer Outcome Not Healed Healed- Epithelialized -Ulcer Cleansing Rinsed/ Irrigated with Saline -Foul Odor after Cleansing No -Bioengineered Tissue Yes -Type of Bioengineered Tissue Epifix 18mm Disc -Expiration Date 07/10/25 -Product Lot Number [id number] -Percent Used 100 -Saline Lot Number [id number] -Bleeding Controlled with Pressure -Offloading No -Treatment Response Procedure Tolerated Well -Debridement - Subq, 1st 20sq cm No -Apply Skin Sub - 1st 25 sq cm - Legs 1 -Epifix 18mm Disc 3 Pain Scale: 0-10 Numeric Is Patient Pain Free? Yes Yes - Nurse 3 - General Ulcer D/C NN Start: 10/17/20 08:06 Freq: Status: Active Protocol: Activity Type Activity Date Activity User E-Sign Co-Sign Detail Recorded Client Recorded Date Recorded By Document 10/17/20 08:30 KR [id number] 10/17/20 08:31 KR Document 10/24/20 08:37 RB [id number] 10/24/20 08:38 RB 10/17/20 10/24/20 08:30 08:37 Wound Care Nurse 3 #1 Right lateral lower ext -Foul Odor after Cleansing No -Negative Pressure Wound Therapy N/A -Primary Dressing Applied Aquacel Extra -Primary Dressing Covered/Secured with Dry Gauze & Roll Gauze -Aquacel Extra 1 Treatment Response Procedure Tolerated Well Pain Scale: 0-10 Numeric Is Patient Pain Free? Yes Yes Teaching: Wound Center Dressing Your Wound -Person Taught Patient -Teaching Method Discussion, Demonstration -Response to teaching Verbalize understanding WC - Visit Discharge Discharge Condition Stable Stable Ambulatory Status Ambulatory Ambulatory Transportation Private Auto Private Auto Medication Reconcilliation completed & No provided to patient/care provider Clinical Summary of Care Provided Yes 10/24/20 08:37 Wound Center by Candice Ramirez dry dressing applied to healed wound . photo also taken of healed wound. Initialized on 10/24/20 08:37 - END OF NOTE No debridement was completed today Assessment/Plan Active Problems Non-healing surgical wound (Acute) Wound dehiscence, surgical (Acute) PAD (peripheral artery disease) (Chronic) Assessment: Fracture left ankle with hardware. Nonhealing dehisced surgical wound left lateral ankle resolved. Chronic nonhealing surgical wound resolved Plan: Discharge from the wound center follow-up as needed
== END 2020-10-24 09:17 | disposition home or self-care (01) ==
LOC: WC 08:00
PROVIDERS: PCP Nurse Practitioner Family; Referring Provider Podiatrist Foot & Ankle Surgery; Visit Provider Nurse Practitioner
DX: T81.31XA Disruption of external operation (surgical) wound, not elsewhere classified, initial encounter (principal); Y83.8 Other surgical procedures as the cause of abnormal reaction of the patient, or of later complication, without mention of misadventure at the time of the procedure; I73.9 Peripheral vascular disease, unspecified; R29.6 Repeated falls; G25.81 Restless legs syndrome
CPT/HCPCS: 15271; 99212; Q4186; G0463

== ENCOUNTER → 2021-10-16 06:25 | Outpatient (CLI) | payer MEDICARE, SELFPAY ==
--- NOTE | 2021-10-16 06:31 | ECHOCS_ITS ---
Reason For Study: CAD/ASHD Procedure This was a 2D Doppler, Color Flow transthoracic echocardiogram. The study was technically difficult. Contrast injection was performed. Exam performed in department. Left Ventricle Normal LV size. Mild concentric left ventricular hypertrophy. Left ventricular systolic function is normal. The estimated ejection fraction is 60 %. Stage 1 diastolic dysfunction. No regional wall motion abnormalities noted. Right Ventricle Normal RV size. Normal systolic function. Atria Normal left atrium. Normal right atrium. Mitral Valve There is mild mitral annular calcification. Tricuspid Valve Normal tricuspid valve. Mild (1+) tricuspid valve insufficiency. Pulmonary artery systolic pressure is 26 mmHg. Aortic Valve Trisinus/trileaflet aortic valve. Pulmonic Valve The pulmonic valve is not well visualized. Great Vessels Normal aortic root. Pericardium/Pleural No pericardial effusion. Medication 22 gauge I.V. with prn adaptor inserted into right arm. Diluted definity 2.5ml given slow IV push to enhance endocardial definition. MMode/2D Measurements & Calculations LVIDd: 4.0 cm IVSd: 1.2 cm LA dimension: 3.7 cm LVIDs: 2.4 cm LVPWd: 1.2 cm FS: 41.7 % LAV(MOD-bp): 35.5 ml LA A4 area: 14.7 cm2 LAV(MOD-bp) Indexed: 24.1 ml/m2 LAV(MOD-sp2): 33.1 ml LAV(MOD-sp4): 37.2 ml Time Measurements MV dec time: 0.30 sec Doppler Measurements & Calculations MV E max allen: 73.8 cm/sec Lat Peak E' Allen: 7.2 cm/sec Med Peak E' Allen: 7.1 cm/sec MV A max allen: 127.3 cm/sec E/E' lat: 10.2 E/E' med: 10.4 MV E/A: 0.58 MV V2 max: 132.1 cm/sec MV P1/2t max allen: 87.6 cm/sec Ao V2 max: 106.4 cm/sec MV max P.0 mmHg MV P1/2t: 97.3 msec Ao max P.5 mmHg MV V2 mean: 62.2 cm/sec MV dec slope: 263.7 cm/sec2 MV mean P.9 mmHg MV V2 VTI: 30.2 cm MVA(P1/2t): 2.3 cm2 LV V1 max: 94.9 cm/sec PA V2 max: 85.4 cm/sec TR max allen: 237.1 cm/sec LV V1 max P.6 mmHg TR max P.5 mmHg ECHO/Echo Complete W/ Contrast Interpretation Summary Normal LV size. Left ventricular systolic function is normal. The estimated ejection fraction is 60 %. Stage 1 diastolic dysfunction. Contrast injection was performed. Compared to previous study, the left ventricu lar systolic function is the same.. Ordering Physician: Chele Ta Referring Physician: Sorin Lewis Performed By: Jaison Guardado RCS
--- NOTE | 2021-10-16 17:06 | STRESSREP ---
Stress Test Report Pharmacologic myocardial perfusion stress test. 66-year-old lady for preoperative evaluation. Stress protocol: Resting EKG demonstrates normal sinus rhythm with a rate of 83 bpm normal intervals are noted resting blood pressure is 118/88 mmHg. 0.4 mg of regadenoson was infused per usual protocol followed by Intravenous saline flush injection continuous EKG monitoring was performed. The maximum heart rate attained was 111 bpm which was 73% of max impact at heart rate the maximum workload was 1 metabolic equivalent. At rest there were no ST or T wave changes noted to suggest abnormal flow reserve and at peak infusion nonspecific ST changes were noted with did not meet the criteria for ischemia. No clinical angina was noted. Myocardial perfusion protocol. 11.4 mCi of technetium 99m sestamibi was injected at rest. 0.4 mg of regadenoson was infused per usual protocol. At peak infusion 33.3 mCi of technetium 99m sestamibi was injected stress images were obtained stress and rest images were reconstructed and compared in the short axis vertical long horizontal long axis. Gated images were also obtained. Perfusion SPECT analysis: Review of the stress images demonstrate normal uptake of tracer noted in all areas of the myocardium. The resting images similarly demonstrate normal uptake of tracer noted in all areas of the myocardium. No reversibility is noted suggest ischemia and no previous infarct is noted. Gated SPECT analysis: The gated ejection fraction is 80%. Conclusion: Normal pharmacologic myocardial perfusion stress test. Preserved ejection fraction.
== END ==
PROVIDERS: PCP Nurse Practitioner Family; Referring Provider Internal Medicine Cardiovascular Disease; Visit Provider Internal Medicine Cardiovascular Disease
DX: Z01.810 Encounter for preprocedural cardiovascular examination (principal); I25.10 Atherosclerotic heart disease of native coronary artery without angina pectoris; I27.21 Secondary pulmonary arterial hypertension
CPT/HCPCS: 78452; 93017; 93306; A9500; Q9957; A4216; C8929; J2785

== ENCOUNTER → 2022-10-14 | Outpatient (CLI) | payer MEDICARE, SELFPAY ==
--- NOTE | 2022-10-14 08:25 | ART_ITS ---
Reason For Study: Atherosclerosis Procedure A bilateral lower extremity continuous wave Doppler with analog waveform analysis and ankle brachial indexes. Left Segmental Pressures Left brachial= 71mmHg. Left posterior tibial artery = 161mmHg. Left dorsalis pedis artery = 178mmHg. Left digit = 108 mmHg. The left dorsalis pedis waveforms are triphasic. The left posterior tibial artery waveforms are triphasic. Right Segmental Pressures Right brachial= 109mmHg. Right posterior tibial artery = 172mmHg. Right dorsalis pedis artery = 176mmHg. Right digit = 117 mmHg. The right dorsalis pedis waveforms are triphasic. The right posterior tibial artery waveforms are triphasic. Indices The right ankle brachial index by the dorsalis pedis is 1.61. The right ankle brachial index by the posterior tibial artery is 1.58. The right digital-brachial index is 1.07. The left ankle brachial index by the dorsalis pedis is 1.63. The left ankle brachial index by the posterior tibial artery is 1.48. The left digital-brachial index is 0.99. . Bilateral brachial dopplers were biphasic/monophasic, ABIs may be overestimated. VL/Ankle Brachial Index Interpretation Summary Bilateral triphasic flowand falselyelevated JUANA 1.61 and 1.63 but normal wavefo rm. Ordering Physician: Reji Ragsdale Referring Physician: Sorin Mello Performed By: Sol Owens RVT
--- NOTE | 2022-10-14 08:25 | CDU_ITS ---
Reason For Study: Carotid stenosis Rt. Velocities/BP Lt. Velocities/BP Prox CCA 75.9/14.5 cm/sec. Prox CCA 95.1/22.6 cm/sec. Mid CCA 121.1/31.6 cm/sec. Mid CCA 128/29.2 cm/sec. Dist CCA 152.1/33.4 cm/sec. Dist CCA 139/31.4 cm/sec. Prox ICA 145.5/27 cm/sec. Prox ICA 139/24.8 cm/sec. Mid ICA 101.3/23.4 cm/sec. Mid ICA 112.6/35.8 cm/sec. Dist ICA 89.1/23.4 cm/sec. Dist ICA 100/24.2 cm/sec. Rt. ICA/CCA = 1.20. Lt. ICA/CCA = 1.09. Prox ECA 119.4/13.5 cm/sec. Prox ECA 259.6/23.6 cm/sec. Rt. Vert. 75.3/22.6 cm/sec. Right Extracranial There is heterogeneous, irregular atherosclerotic plaque noted in the right common carotid artery. There is heterogeneous, irregular atherosclerotic plaque noted in the right internal carotid artery. The atherosclerotic plaque causes acoustic shadowing. There is heterogeneous, irregular atherosclerotic plaque noted in the right external carotid artery. Antegrade flow is noted in the right vertebral artery. Abnormal waveform morphology noted in the right vertebral artery. Left Extracranial There is heterogeneous, irregular atherosclerotic plaque noted in the left common carotid artery. There is heterogeneous, irregular atherosclerotic plaque noted in the left internal carotid artery. The atherosclerotic plaque causes acoustic shadowing. There is heterogeneous, irregular atherosclerotic plaque noted in the left external carotid artery. Retrograde flow noted in the left vertebral artery. Procedure Carotid Duplex [id number]. This is a Carotid Duplex examination using B-mode, color flow and specral Doppler. Exam performed in department. VL/Carotid Duplex Ultrasound Interpretation Summary Moderate (50-69%) stenosis right extracranial internal carotid. Moderate (50-69 %) stenosis left extracranial internal carotid. Flow within the right verterbral artery is anteg rade. Flow within the left verterbral artery is retrograde, consistent with a subclavian steal phenom enon. Ordering Physician: Reji Ragsdale Referring Physician: Sorin Lewis Performed By: Sol Owens RVT
--- NOTE | 2022-10-14 08:25 | AAVD_ITS ---
Reason For Study: Atherosclerosis Aorta Measurements Aorta Doppler Measurements Proximal aorta measures1.84 x 1.86cm. in cross- Peak systolic flow velocities within the proximal sectional axis. aorta measure 79.6 cm/sec. Proximal aorta measures1.82cm. in longitudinal Peak systolic flow velocities within the mid aorta axis. measure 209.9 cm/sec. Mid aorta measures1.86 x 1.88cm. in cross- Peak systolic flow velocities within the distal sectional axis. aorta measure 250.1 cm/sec. Mid aorta measures1.80cm. in longitudinal axis. Distal aorta measures1.29 x 1.28cm. in cross- sectional axis. Distal aorta measures1.16cm. in longitudinal axis. Left Iliac Artery Left iliac artery measures 0.52 x 0.53 cm. in the cross-sectional axis. Left iliac artery measures 0.48 cm. in the longitudinal axis. Peak systolic velocity in the left iliac artery measures 268.7 cm/sec. Stent noted. Right Iliac Artery Right iliac artery measures 0.53 x 0.50 cm. in the cross-sectional axis. Right iliac artery measures 0.51 cm. in the longitudinal axis. Peak systolic velocity in the right iliac artery measures 259.4 cm/sec. Stent noted. Procedure Aorta IVC Iliac vasculature or bypass grafts [id number]. Exam performed in department. VL/Abd Aortic/IVC Duplex scan Interpretation Summary Aortoiliac mild to moderate stenosis with aortic psv 250 and right suzette 259 and left suzette 268. Ordering Physician: Reji Ragsdale Referring Physician: Sorin Lewis Performed By: Sol Owens RVT
--- NOTE | 2022-10-14 08:26 | ADU_ITS ---
Reason For Study: Atherosclerosis Right Velocities Left Velocities Ext. Iliac Artery, dist = 270.3 cm./sec. Ext Iliac Artery, dist = 195.9 cm./sec. Common Femoral Artery, mid = 170 cm./sec. Common Femoral Artery, mid = 126 cm./sec. SFA origin, 128.6 cm/sec. SFA origin, 133.7 cm/sec. Supf Femoral Artery, prox = 128.6 cm./sec. Supf. Femoral Artery, prox = 162.2 cm./sec. Supf Femoral Artery, mid = 152.8 cm./sec. Supf. Femoral Artery, mid = 151.9 cm./sec. Supf Femoral Artery, dist. = 106.7 cm./sec. Supf. Femoral Artery, dist = 123.4 cm./sec. Profunda Femoral Artery = 68.7 cm./sec. Profunda Femoral Artery = 131.1 cm./sec. Popliteal Artery, mid = 75.6 cm./sec. Popliteal Artery, mid = 77.8 cm./sec. Post. Tibial Artery, prox = 80.6 cm./sec. Post. Tibial Artery, prox = 63.4 cm./sec. Post. Tibial Artery, mid = 119.8 cm./sec. Post Tibial Artery, mid = 127.1 cm./sec. Post. Tibial Artery, dist = 112.5 cm./sec. Post Tibial Artery, dist. = 97.9 cm./sec. Peroneal Artery, prox = 45.9 cm./sec. Peroneal Artery, prox = 52.3 cm./sec. Peroneal Artery, mid = 49.7 cm./sec. Peroneal Artery, mid = 56 cm./sec. Peroneal Artery,dist = 59.1 cm./sec. Peroneal Artery,dist. = 57.2 cm./sec. Ant. Tibial Artery, prox = 79.8 cm./sec. Ant.Tibial Artery, prox = 63.4 cm./sec. Ant. Tibial Artery, mid = 68.8 cm./sec. Ant Tibial Artery, mid = 72 cm./sec. Ant. Tibial Artery, dist = 77.6 cm./sec. Ant. Tibial Artery, distal = 72 cm./sec. Procedure Exam performed in department. VL/US Art Duplex Bilat Lower Ext Interpretation Summary Bilateral lower extemity with no stenosis noted. Ordering Physician: Reji Ragsdale Referring Physician: Sorin Lewis Performed By: Sol Owens RVT
== END | disposition home or self-care (01) ==
LOC: CVS 08:22
PROVIDERS: PCP Nurse Practitioner Family; Referring Provider Surgery Vascular Surgery; Visit Provider Surgery Vascular Surgery
DX: I65.23 Occlusion and stenosis of bilateral carotid arteries (principal); I77.1 Stricture of artery; I70.212 Atherosclerosis of native arteries of extremities with intermittent claudication, left leg; F17.200 Nicotine dependence, unspecified, uncomplicated; Z48.812 Encounter for surgical aftercare following surgery on the circulatory system
CPT/HCPCS: 93880; 93922; 93925; 93978

== ENCOUNTER → 2023-03-13 | Outpatient (CLI) | payer MEDICARE, SELFPAY ==
--- NOTE | 2023-03-13 07:54 | ART_ITS ---
Reason For Study: Atherosclerosis Procedure A bilateral lower extremity continuous wave Doppler with analog waveform analysis and ankle brachial indexes. Left Segmental Pressures Left brachial= 105mmHg. Left posterior tibial artery = 146mmHg. Left dorsalis pedis artery = 132mmHg. Left digit = 152 mmHg. The left posterior tibial artery waveforms are triphasic. The left dorsalis pedis waveforms are triphasic. Right Segmental Pressures Right brachial= 79mmHg. Right posterior tibial artery = 152mmHg. Right dorsalis pedis artery = 153mmHg. Right digit = 123 mmHg. The right posterior tibial artery waveforms are triphasic. The right dorsalis pedis waveforms are triphasic. Indices The right ankle brachial index by the posterior tibial artery is 1.39. The right ankle brachial index by the dorsalis pedis is 1.26. The right digital-brachial index is 1.45. The left ankle brachial index by the posterior tibial artery is 1.45. The left ankle brachial index by the dorsalis pedis is 1.46. The left post exercise ankle brachial index is 1.17. VL/Ankle Brachial Index Interpretation Summary No evidence occlussive disease at rest with bilateral triphasic flow and JUANA 1. 39 and 1.45 and DBI 1.45 and 1.17. Ordering Physician: Corby Yu Referring Physician: CORBY YU DR. Performed By: Freddie Gutierrez RVT
--- NOTE | 2023-03-13 07:54 | AAVD_ITS ---
Reason For Study: Atherosclerosis Aorta Measurements Aorta Doppler Measurements Proximal aorta measures1.85 x 1.88cm. in cross- Peak systolic flow velocities within the proximal sectional axis. aorta measure 72.3 cm/sec. Proximal aorta measures1.85cm. in longitudinal Peak systolic flow velocities within the mid aorta axis. measure 203.9 cm/sec. Mid aorta measures1.60 x 1.58cm. in cross- Peak systolic flow velocities within the distal sectional axis. aorta measure 152.7 cm/sec. Mid aorta measures1.57cm. in longitudinal axis. Large plaque formation noted mid AO. Distal aorta measures1.20 x 1.16cm. in cross- sectional axis. Distal aorta measures1.24cm. in longitudinal axis. Left Iliac Artery Left iliac artery measures 0.64 x 0.67 cm. in the cross-sectional axis. Left iliac artery measures 0.65 cm. in the longitudinal axis. Peak systolic velocity in the left iliac artery measures 189.8 cm/sec. Stent noted. Right Iliac Artery Right iliac artery measures 0.54 x 0.55 cm. in the cross-sectional axis. Right iliac artery measures 0.53 cm. in the longitudinal axis. Peak systolic velocity in the right iliac artery measures 250.1 cm/sec. Stent noted. Procedure Aorta IVC Iliac vasculature or bypass grafts [id number]. The exam was diagnostic. Exam performed in department. VL/Abd Aortic/IVC Duplex scan Interpretation Summary No aneurysm noted.Aorta and right iliac with mild to moderate stenosis,. Ordering Physician: Reji Ragsdale Referring Physician: Reji Ragsdale Performed By: Freddie Gutierrez RVT
--- NOTE | 2023-03-13 07:54 | ADU_ITS ---
Reason For Study: Atherosclerosis Right Velocities Left Velocities Ext. Iliac Artery, dist = 157.8 cm./sec. Ext Iliac Artery, dist = 221.7 cm./sec. Common Femoral Artery, mid = 181.2 cm./sec. Common Femoral Artery, mid = 160.3 cm./sec. Supf Femoral Artery, prox = 100.3 cm./sec. Supf. Femoral Artery, prox = 146.9 cm./sec. Supf Femoral Artery, mid = 107.6 cm./sec. Supf. Femoral Artery, mid = 133.7 cm./sec. Supf Femoral Artery, dist. = 100.3 cm./sec. Supf. Femoral Artery, dist = 96.4 cm./sec. Profunda Femoral Artery = 71.1 cm./sec. Profunda Femoral Artery = 93.5 cm./sec. Popliteal Artery, mid = 69.2 cm./sec. Popliteal Artery, mid = 85.4 cm./sec. Post. Tibial Artery, prox = 85.7 cm./sec. Post. Tibial Artery, prox = 76.6 cm./sec. Post. Tibial Artery, mid = 85.7 cm./sec. Post Tibial Artery, mid = 96.4 cm./sec. Post. Tibial Artery, dist = 103.9 cm./sec. Post Tibial Artery, dist. = 83.2 cm./sec. Peroneal Artery, prox = 48.1 cm./sec. Peroneal Artery, prox = 52.5 cm./sec. Peroneal Artery, mid = 48.1 cm./sec. Peroneal Artery, mid = 38.4 cm./sec. Peroneal Artery,dist = 23.5 cm./sec. Peroneal Artery,dist. = 47.2 cm./sec. Ant. Tibial Artery, prox = 51.9 cm./sec. Ant.Tibial Artery, prox = 81.2 cm./sec. Ant. Tibial Artery, mid = 65.1 cm./sec. Ant Tibial Artery, mid = 60.3 cm./sec. Ant. Tibial Artery, dist = 59.4 cm./sec. Ant. Tibial Artery, distal = 73.5 cm./sec. Procedure The exam was diagnostic. Exam performed in department. VL/US Art Duplex Bilat Lower Ext Interpretation Summary Bialteral legs with no stenosis and triphasic flow throughout. Ordering Physician: Reji Ragsdale Referring Physician: Reji Ragsdale Performed By: Freddie Gutierrez RVT
== END | disposition home or self-care (01) ==
LOC: CVS 07:53
PROVIDERS: PCP Nurse Practitioner Family; Referring Provider Surgery Vascular Surgery; Visit Provider Surgery Vascular Surgery
DX: Z48.812 Encounter for surgical aftercare following surgery on the circulatory system (principal); I70.213 Atherosclerosis of native arteries of extremities with intermittent claudication, bilateral legs
CPT/HCPCS: 93922; 93925; 93978

== ENCOUNTER → 2024-05-23 | Outpatient (CLI) | payer MEDICARE, SELFPAY ==
--- NOTE | 2024-05-23 07:48 | ADU_ITS ---
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 Iliac Artery, dist = 190.4 cm./sec. Ext Iliac Artery, dist = 168..4 cm./sec. Common Femoral Artery, mid = 93 cm./sec. Common Femoral Artery, mid = 131.9 cm./sec. Supf Femoral Artery, prox = 94.8 cm./sec. Supf. Femoral Artery, prox = 203.3 cm./sec. Supf Femoral Artery, mid = 118.5 cm./sec. Supf. Femoral Artery, mid = 148.6 cm./sec. Supf Femoral Artery, dist. = 76.5 cm./sec. Supf. Femoral Artery, dist = 116.4 cm./sec. Profunda Femoral Artery = 51 cm./sec. Profunda Femoral Artery = 65.6 cm./sec. Popliteal Artery, mid = 82 cm./sec. Popliteal Artery, mid = 65.6 cm./sec. Post. Tibial Artery, prox = 72.3 cm./sec. Post. Tibial Artery, prox = 62.5 cm./sec. Post. Tibial Artery, mid = 100.3 cm./sec. Post Tibial Artery, mid = 87.1 cm./sec. Post. Tibial Artery, dist = 74.7 cm./sec. Post Tibial Artery, dist. = 82.1 cm./sec. Peroneal Artery, prox = 40.6 cm./sec. Peroneal Artery, prox = 36.7 cm./sec. Peroneal Artery, mid = 69.1 cm./sec. Peroneal Artery, mid = 3.83 cm./sec. Peroneal Artery,dist = 49.3 cm./sec. Peroneal Artery,dist. = 32.2 cm./sec. Ant. Tibial Artery, prox = 69.1 cm./sec. Ant.Tibial Artery, prox = 71.4 cm./sec. Ant. Tibial Artery, mid = 63.6 cm./sec. Ant Tibial Artery, mid = 74.9 cm./sec. Ant. Tibial Artery, dist = 69.1 cm./sec. Ant. Tibial Artery, distal = 72.6 cm./sec. Procedure Exam performed in department. VL/US Art Duplex Bilat Lower Ext Interpretation Summary The lower extremity arterial duplex is normal bilaterally. Ordering Physician: Reji Ragsdale Referring Physician: Sorin Lewis Performed By: Sol Owens RVT
--- NOTE | 2024-05-23 07:48 | ART_ITS ---
Reason For Study: Atherosclerosis Procedure A bilateral lower extremity continuous wave Doppler with analog waveform analysis and ankle brachial indexes. Left Segmental Pressures Left brachial= 81mmHg. Left posterior tibial artery = 160mmHg. Left dorsalis pedis artery = 163mmHg. Left digit = 84 mmHg. The left dorsalis pedis waveforms are triphasic. The left posterior tibial artery waveforms are triphasic. Right Segmental Pressures Right brachial= 86mmHg. Right posterior tibial artery = 176mmHg. Right dorsalis pedis artery = 166mmHg. Right digit = 126 mmHg. The right dorsalis pedis waveforms are triphasic. The right posterior tibial artery waveforms are triphasic. Indices The right ankle brachial index by the dorsalis pedis is 1.93. The right ankle brachial index by the posterior tibial artery is 2.05. The right digital-brachial index is 1.47. The left ankle brachial index by the dorsalis pedis is 1.90. The left ankle brachial index by the posterior tibial artery is 1.86. The left digital-brachial index is 0.98. VL/Ankle Brachial Index Interpretation Summary Bilateral elevated JUANA's and maintained triphasic flow. Ordering Physician: Reji Ragsdale Referring Physician: Sorin Lewis Performed By: Hazel Villatoro RDCS/RVT
--- NOTE | 2024-05-23 07:48 | AAVD_ITS ---
Reason For Study: S/P Bilateral iliac stent Aorta Measurements Aorta Doppler Measurements Proximal aorta measures1.88 x 1.88cm. in cross- Peak systolic flow velocities within the proximal sectional axis. aorta measure 65.1 cm/sec. Proximal aorta measures1.72cm. in longitudinal Peak systolic flow velocities within the mid aorta axis. measure 229.3 cm/sec. Mid aorta measures1.59 x 1.51cm. in cross- Peak systolic flow velocities within the distal sectional axis. aorta measure 213.1 cm/sec. Mid aorta measures1.60cm. in longitudinal axis. Distal aorta measures0.83 x 0.84cm. in cross- sectional axis. Distal aorta measures0.90cm. in longitudinal axis. Left Iliac Artery Left iliac artery measures 0.45 x 0.48 cm. in the cross-sectional axis. Left iliac artery measures 0.52 cm. in the longitudinal axis. Peak systolic velocity in the left iliac artery measures 254.7 cm/sec. Stent noted. Right Iliac Artery Right iliac artery measures 0.51 x 0.50 cm. in the cross-sectional axis. Right iliac artery measures 0.44 cm. in the longitudinal axis. Peak systolic velocity in the right iliac artery measures 258.6 cm/sec. Stent noted. Procedure Aorta IVC Iliac vasculature or bypass grafts [id number]. Exam performed in department. VL/Abd Aortic/IVC Duplex scan Interpretation Summary Moderate aortic and bilateral iliac stenosis. Ordering Physician: Reji Ragsdale Referring Physician: Sorin Lewis Performed By: Sol Owens RVT
--- NOTE | 2024-05-23 07:48 | CDU_ITS ---
Reason For Study: Carotid stenosis Rt. Velocities/BP Lt. Velocities/BP Prox CCA 59.8/11.6 cm/sec. Prox CCA 94.1/26.5 cm/sec. Mid CCA 74/17.3 cm/sec. Mid CCA 110/31.4 cm/sec. Dist CCA 155.8/37.1 cm/sec. Dist CCA 97.7/24.1 cm/sec. Prox ICA 158.7/16 cm/sec. Prox ICA 103.4/19.4 cm/sec. Mid ICA 64.3/17.2 cm/sec. Mid ICA 86.9/24.8 cm/sec. Dist ICA 90/18.8 cm/sec. Dist ICA 99.7/32.1 cm/sec. Rt. ICA/CCA = 2.14. Lt. ICA/CCA = 0.94. Prox ECA 174.1/29.8 cm/sec. Prox ECA 150.6/18.9 cm/sec. Right Extracranial There is heterogeneous, irregular atherosclerotic plaque noted in the right common carotid artery. The atherosclerotic plaque causes acoustic shadowing. There is heterogeneous, irregular atherosclerotic plaque noted in the right internal carotid artery. There is heterogeneous, irregular atherosclerotic plaque noted in the right external carotid artery. Retrograde flow noted in the right vertebral atery. Left Extracranial There is heterogeneous, irregular atherosclerotic plaque noted in the left common carotid artery. There is intimal thickening but no significant atherosclerotic plaque noted in the left internal carotid artery. There is intimal thickening but no significant atherosclerotic plaque noted in the left external carotid artery. Retrograde flow noted in the left vertebral atery. Procedure Carotid Duplex 80351. This is a Carotid Duplex examination using B-mode, color flow and specral Doppler. Exam performed in department. VL/Carotid Duplex Ultrasound Interpretation Summary Moderate (50-69%) stenosis right extracranial internal carotid. Mild (<50%) renata nosis left extracranial internal carotid. Flow within the vertebral arteries is antegrade bilaterally. Ordering Physician: Reji Ragsdale Referring Physician: Joshua Rowell Performed By: Sol Owens RVT
== END | disposition home or self-care (01) ==
PROVIDERS: PCP Nurse Practitioner Family; Referring Provider Surgery Vascular Surgery; Visit Provider Surgery Vascular Surgery
DX: I65.23 Occlusion and stenosis of bilateral carotid arteries (principal); I70.213 Atherosclerosis of native arteries of extremities with intermittent claudication, bilateral legs; Z48.812 Encounter for surgical aftercare following surgery on the circulatory system
CPT/HCPCS: 93880; 93922; 93925; 93978